=== PATIENT | female | born 1975 | race Caucasian/White ===

== ENCOUNTER 2021-12-04 08:46 | Outpatient (CLI) | payer BC, SELFPAY ==
[2021-12-04 19:28] LABS: Hematocrit 39.2 % (37.0-47.0); Hemoglobin 12.9 g/dL (12.0-15.0); Mean Corpuscular HGB Conc 32.9 g/dl (32-36); Mean Corpuscular Hemoglobin 29.4 pg (26-34); Mean Corpuscular Volume 89.3 fl (80-100); Platelet Count Result 304 k/mm3 (150-375); Red Blood Count 4.39 M/mm3 (4.2-5.4); Red Cell Distribution Width 13.6 % (11.5-14.5); White Blood Count 6.3 K/mm3 (4.5-10.0)
[2021-12-04 19:51] LABS: T4 Thyroxine 8.47 ug/dL (5.53-11.0)
[2021-12-04 20:00] LABS: Vitamin D 25 Hydroxy 40.8 ng/mL
[2021-12-04 20:04] LABS: Total Triiodothyronine (T3) 1.29 NG/ML (0.97-1.69)
[2021-12-07 11:16] LABS: FSH 7.3 mIU/mL (***); Progesterone 8.2 ng/mL (***)
[2021-12-08 10:22] LABS: Testosterone Total 9 ng/dL (2-45)
== END 2021-12-04 08:47 | disposition home or self-care (01) ==
PROVIDERS: Visit Provider Obstetrics & Gynecology
DX: N95.1 Menopausal and female climacteric states (principal)
CPT/HCPCS: 36415; 82306; 82672; 83001; 84144; 84403; 84436; 84443; 84480; 85027

== ENCOUNTER 2022-06-07 09:17 | Outpatient (CLI) | payer BC, OTHER, SELFPAY ==
--- NOTE | ~2022-06-07 | MM_ITS ---
EXAMINATION: MM screening jasmeet BI w félix HISTORY: Screening mammogram TECHNIQUE: Craniocaudal and mediolateral oblique 3-D tomosynthesis images were obtained and synthetic 2-D images were generated. CAD analysis was submitted and interpreted. COMPARISON: No prior mammogram is available for comparison at this institution. BREAST PARENCHYMAL COMPOSITION: There are scattered areas of fibroglandular density. FINDINGS: There is no evidence of suspicious mass, calcification, or architectural distortion to sugg est malignancy in either breast. There has been no suspicious interval change. IMPRESSION: 1. No mammographic evidence of malignancy. 2. Recommend routine screening mammography in one year. BI-RADS Category 1: Negative Reviewed, dictated and finalized at location A. HARDENER
== END 2022-06-07 09:18 | disposition home or self-care (01) ==
LOC: ANHIMG 09:19
PROVIDERS: PCP Family Medicine; Visit Provider Obstetrics & Gynecology
DX: Z12.31 Encounter for screening mammogram for malignant neoplasm of breast (principal)
CPT/HCPCS: 77063; 77067

== ENCOUNTER 2023-03-20 09:05 | Outpatient (CLI) | payer OTHER, SELFPAY ==
[2023-03-26 22:48] LABS: Estradiol, Ultrasensitive 178 pg/mL
== END 2023-03-20 09:06 | disposition home or self-care (01) ==
LOC: ANHLAB 09:07
PROVIDERS: PCP Family Medicine; Visit Provider Obstetrics & Gynecology
DX: N95.1 Menopausal and female climacteric states (principal)
CPT/HCPCS: 36415; 82670; 83001

== ENCOUNTER 2023-08-14 16:05 | Emergency (ER) | payer OTHER, SELFPAY ==
--- NOTE | 2023-08-14 16:12 | ED.GENADULT ---
HPI - General Adult General Chief complaint: Upper Respiratory Infection Stated complaint: Sore Throat Source: patient, RN notes reviewed and old records reviewed Mode of arrival: ambulatory Limitations: no limitations History of Present Illness HPI narrative: 40-year-old female presents to [facility] with complaint of with complaint of sinus congestion, sinus pressure, sinus pain, sore throat, bilateral ear pressure that started 2 weeks ago. Patient taking [id number] medications with no relief patient states is now having green nasal discharge. MD complaint: congestion Onset (ago): week(s) (2) Related Data Home Medications Medication Instructions Recorded Confirmed amlodipine 5 mg tablet 5 mg PO DAILY 12/02/21 03/20/23 chlorthalidone 25 mg tablet 25 mg PO DAILY 12/02/21 03/20/23 fluoxetine 40 mg capsule 40 mg PO DAILY 12/02/21 03/20/23 bupropion HCl 150 mg 24 hr tablet, 300 mg PO QAM 12/29/22 03/20/23 extended release iron 150 mg-C 60 mg-B12 25 1 cap PO DAILY 03/20/23 03/20/23 mcg-folic acid 1 lz-dwglmng-gq.acid capsule lisdexamfetamine 30 mg capsule 30 mg PO DAILY 03/20/23 03/20/23 (Vyvanse) alprazolam 0.25 mg tablet mg 08/14/23 Allergies Allergy/AdvReac Type Severity Reaction Status Date / Time No Known Allergies Allergy Verified 03/20/23 08:35 Review of Systems Constitutional: Constitutional: Reports no additional constitutional complaints, Denies body ache(s), Denies chills, Denies fatigue, Denies fever(s) and Denies headache(s) Eyes: Eyes: Reports no additional eye complaints and Denies blurry vision ENT: Reports system reviewed and no additional complaints, except as documented, Denies vertigo, Denies dizziness, Denies ear discharge, Reports otalgia, Denies facial pain, Denies headache(s), Reports nasal congestion, Reports nasal discharge, Reports sinus pain, Reports sinus pressure and Reports sore throat Cardiovascular: Cardiovascular: Reports no additional cardiovascular complaints, Denies chest pain, Denies chest pain at rest, Denies rapid heart rate and Denies dyspnea Respiratory: Respiratory: Reports no additional respiratory complaints, Denies chest congestion, Denies cough, Denies pain on inspiration, Denies pain with cough and Denies dyspnea Gastrointestinal: Gastrointestinal: Denies abdominal pain, Denies diarrhea, Denies nausea and Denies vomiting Integumentary/Breasts: Skin/Breast: Denies rash Neurologic: Reports system reviewed and no additional complaints, except as documented, Denies vertigo, Denies dizziness and Denies headache(s) Endocrine: Endocrine: Denies fatigue PMFSH Past Medical History Medical History Depression with anxiety Hypertension Miscarriage Surgical History Surgical History Hx of tubal ligation S/P dilation and curettage [place] teeth removed Family History Family History Other Alcoholism Asthma Depression Hypertension Lung cancer Lupus Social History Social History Smoking status: Never smoker Alcohol intake: never Substance use: never Substance use type: does not use Concerned About Future Housing: Decline to Answer Difficulty Paying Gas/Electric Bills: Decline to Answer Difficulty Paying for Meds: Decline to Answer Currently Unemployed: Decline to Answer Difficulty w/ Childcare or Family Care: Decline to Answer Comments At the time of my signature, I reviewed and agree with the nursing past medical, surgical, social, and family history. There is no relevant family history pertinent to the patient complaint. Exam Const: General: cooperative, healthy appearing, no acute distress and well nourished Nutritional Appearance: well nourished Orientation/consciousness: patient oriented x3
[2023-08-14 16:16] VITALS: BP 138/84; PULSE 107; RESP 16; TEMP 35.9; O2SAT 100
== END 2023-08-14 16:23 | disposition home or self-care (01) ==
PROVIDERS: Emergency Provider Registered Nurse; PCP Family Medicine
DX: J01.90 Acute sinusitis, unspecified (principal); I10 Essential (primary) hypertension; F41.9 Anxiety disorder, unspecified; F32.A Depression, unspecified
CPT/HCPCS: 99213; G0463

== ENCOUNTER 2023-11-06 07:16 | Outpatient (CLI) | payer OTHER, SELFPAY ==
--- NOTE | ~2023-11-06 | MM_ITS ---
EXAMINATION: MM screening jasmeet BI w félix HISTORY: Screening TECHNIQUE: Craniocaudal and mediolateral oblique 3-D tomosynthesis images were obtained and synthetic 2-D images were generated. CAD analysis was submitted and interpreted. COMPARISON: 06/07/2022 BREAST PARENCHYMAL COMPOSITION: Not dense: There are scattered areas of fibroglandular density. FINDINGS: There is no evidence of suspicious mass, calcification, or architectural distortion to sugg est malignancy in either breast. There has been no suspicious interval change. IMPRESSION: 1. No mammographic evidence of malignancy. 2. Recommend routine screening mammography in one year. BI-RADS Category 1: Negative Reviewed, dictated and finalized at location B.
== END 2023-11-06 07:17 | disposition home or self-care (01) ==
LOC: ANHIMG 07:19
PROVIDERS: PCP Nurse Practitioner Family; Visit Provider Obstetrics & Gynecology
DX: Z12.31 Encounter for screening mammogram for malignant neoplasm of breast (principal)
CPT/HCPCS: 77063; 77067

== ENCOUNTER 2024-07-03 12:08 | Emergency (ER) | payer OTHER, SELFPAY ==
--- NOTE | 2024-07-03 12:23 | ED_ITS ---
HPI - URI/Sore Throat General Stated Complaint: nose/sinus pressure/headache History of Present Illness HPI Narrative: Patient presents for evaluation of nasal congestion runny nose. No fever no body aches. Patient states her child tested positive for influenza A 5 days ago and was given Tamiflu prophylactic due to her exposure. Patient states she has no fever no body aches no cough just nasal congestion. Related Data Home Medications ?Medication ?Instructions ?Recorded ?Confirmed ?Last Taken ?Type amlodipine 5 mg tablet 5 mg PO DAILY 12/02/21 04/18/24 Unknown History fluoxetine 40 mg capsule 40 mg PO DAILY 12/02/21 04/18/24 Unknown History bupropion HCl 150 mg 24 hr tablet, 300 mg PO QAM 12/29/22 04/18/24 Unknown History extended release iron 150 mg-C 60 mg-B12 25 1 cap PO DAILY 03/20/23 04/18/24 Unknown History mcg-folic acid 1 ss-zewjhaq-uu.acid capsule alprazolam 0.25 mg tablet 0.25 mg PO DAILY PRN Anxiety 08/14/23 04/18/24 Unknown History lisdexamfetamine 30 mg capsule 60 mg PO DAILY 11/17/23 04/18/24 Unknown History (Vyvanse) Allergies Allergy/AdvReac Type Severity Reaction Status Date / Time No Known Allergies Allergy Verified 04/18/24 08:45 Review of Systems Review of Systems: CONSTITUTIONAL: Denies chills, or sweats. Reports fever and generalized body aches EYES: Denies visual changes, redness, or discharge. ENT: Denies otalgia. Reports nasal congestion runny nose and sore throat CARDIOVASCULAR: Denies chest pain, palpitations, or edema. RESPIRATORY: Denies dyspnea. Reports occasional cough GASTROINTESTINAL: Denies abdominal pain, nausea, vomiting, or diarrhea. GENITOURINARY: Denies dysuria or hematuria. SKIN: Denies rash or itching. MUSCULOSKELETAL: Denies back pain, joint pain, or myalgia. Reports generalized body aches NEUROLOGIC: Denies headache, numbness, or weakness. PSYCHIATRIC: Denies anxiety or depression. [facility] Past Medical History Medical History (Updated 07/03/24 @ 12:34 by SHERRIE Stack) Skin cancer (melanoma) Depression with anxiety Miscarriage Hypertension Surgical History Surgical History Hx of tubal ligation S/P dilation and curettage [place] teeth removed Family History Family History Other Alcoholism Asthma Depression Hypertension Lung cancer Lupus Social History Social History Smoking status: Never smoker Alcohol intake: never Substance use: never Substance use type: does not use Concerned About Future Housing: Decline to Answer Difficulty Paying Gas/Electric Bills: Decline to Answer Difficulty Paying for Meds: Decline to Answer Currently Unemployed: Decline to Answer Difficulty w/ Childcare or Family Care: Decline to Answer Living arrangements: with family Spiritual care concerns: No Exam Narrative: The patient is a well-developed, well-nourished in no acute distress. SKIN: Skin is warm and dry without erythema, swelling or exudate. There is good turgor. No tenting. HEAD: Atraumatic. Normocephalic. No temporal or scalp tenderness. EYES: Moist and bright. Sclera and conjunctivae normal. No discharge. PERRLA. Extraocular motions intact. Gross visual acuity intact. EARS: Pinna is normal shape and contour. Clear external auditory canals. TM pearly arriaza with good cone of light, no erythema or suppuration. Bilateral cerumen noted no gross hearing deficit. NOSE: pink, moist mucosa with good air movement. Clear rhinorrhea without nasal flaring. Septum midline. Mouth: moist mucous membranes. THROAT; mild erythema noted to posterior oropharynx with moderate postnasal drainage. Without exudate or ulceration.. Uvula midline. Normal movement of soft palate. NECK: Supple and nontender with full range of motion without discomfort. No meningeal signs. LUNGS: Equal and bilateral breath sounds without wheezes, rales or rhonchi. CHEST: The chest wall is without retractions or use of accessory muscles. HEART: Has a regular rate and rhythm without murmur, gallops, click or rub. ABDOMEN: Soft, nontender with positive active bowel sounds. No rebound tenderness. EXTREMITIES: Without cyanosis, clubbing or edema. Equal 2+ distal pulses and 2 second capillary refill noted. NEUROLOGIC: alert, active, . The patient moves all extremities with normal muscle strength. Normal muscle tone is noted. Normal coordination is noted. NO focal neurological findings noted. Course Course Level of Care: Express Care Visit Discharge Plan Discharge Clinical Impression: Upper respiratory infection Patient Disposition: Home, Self-Care Condition: Stable Instructions: Antibiotic Form Additional Instructions: *Throw away your current toothbrush and begin using a new toothbrush in 48 hours in order to prevent re-infection. If anyone else's toothbrush is stored near yours, they should also throw away their current toothbrush and begin using a new one. *Sanitize all reusable water bottles. *Do not share items with others. *Wash your hands often. Supportive care/Soothing measures/Pain relief: *Avoid cigarette smoke (including secondhand smoke) *Avoid acidic foods and beverages *Eat a soft diet for the next 3-4 days *Salt water gargles may alleviate some of the throat discomfort. Most recipes call for ? to ? teaspoon of salt per 8 ounces (approximately 240 mL) of warm water. *You can take tylenol or ibuprofen per the package instructions for pain/fever. *Sipping cold or warm beverages (eg, tea with honey or lemon) *Eat cold or frozen desserts (eg, ice cream, popsicles) *Sucking on ice *Sucking on hard candy Viruses are everywhere and can spread like wildfire. Sx can last up to 3-4 weeks. Treatment is aimed toward your specific symptoms. You must treat your symptoms in order to feel better while the virus runs it's course. Increase fluids especially water. Do not share items with others. You can take Tylenol or ibuprofen per the package instructions for pain/fever. Wash your hands as often as possible. Purchase and begin using an over the counter antihistamine/decongestant combo such as Zyrtec D, Larisa D, Claritin D as well as Flonase nasal spray per the package instructions. Salt water gargles may alleviate some of your throat discomfort. Go to the ER if your symptoms become worse of if ANY new symptoms develop Patient Language: [place] Prescriptions: No Action alprazolam 0.25 mg tablet 0.25 mg PO DAILY PRN (Reason: Anxiety) Slynd 4 mg (28) tablet 1 tablet PO DAILY Qty: 84 4RF amlodipine 5 mg tablet 5 mg PO DAILY fluoxetine 40 mg capsule 40 mg PO DAILY bupropion HCl 150 mg tablet extended release 24 hr 300 mg PO QAM iron aspgly,[id number] 150-60-25-1 rp-ss-kqg-mg capsule 1 cap PO DAILY lisdexamfetamine [Vyvanse] 30 mg capsule 60 mg PO DAILY Follow-up/Referrals: Prakash,Tiffanie Guerra, SKEIN STRAIGHTENER [Primary Care Provider] -
[2024-07-03 12:31] VITALS: BP 134/81; PULSE 92; RESP 18; TEMP 36.4; O2SAT 100
--- OUTSIDE RECORDS SUMMARY | 2024-07-08 03:45 | XMS_ITS ---
Author Organization [facility] [employer] [facility] Address [facility] [address] [address] Care Team Providers Care Biological Science Aide Name Role Phone Prakash SUTHERLAND, Tiffanie Primary Care Provider Unavailab Cristela Goodman Unavailable [phone] REASON FOR VISIT Cancel Appointment Request Social History Sex Assigned At : Social History Observation Description Sex Assigned At Female Encounters Encounter Location Date Provider Diagnosis [facility] [employer] [place] [id number] [facility] [address] [address] 05/27/2024 Cristela Garland Plan Of Treatment Next Appt Details Provider Name:Flori Adamson, 07/26/2024 08:00:00 AM, [address] [facility] [address], [address], [address], Provider Name:Cristela Garland, 08/09/2024 08:00:00 AM, [address] [place] [address], [address], Progress Notes * MOISE CONRADDOB:[birth year] (49 yo F)Acc No.[id number]:05/27/2024 Patient:?MOISE CONRAD :1975???Age:49 Y???Sex:Female Address:[address], [place], [address] * true * Date:? 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
--- OUTSIDE RECORDS SUMMARY | 2024-07-08 03:45 | XMS_ITS ---
Author Organization [facility] [employer] [facility] Address [facility] [address] [address] Care Team Providers Care Manager [place] Name Role Phone Prakash SUTHERLAND, Tiffanie Primary Care Provider Unavailab Cristela Goodman Unavailable [phone] REASON FOR VISIT Cancel Appointment Request Social History Sex Assigned At : Social History Observation Description Sex Assigned At Female Encounters Encounter Location Date Provider Diagnosis [facility] [employer] [place] [id number] [facility] [address] [address] 05/27/2024 Cristela Garland Plan Of Treatment Next Appt Details Provider Name:Flori Adamson, 07/26/2024 08:00:00 AM, [address] [facility], [address], [address], Provider Name:Cristela Garland, 08/09/2024 08:00:00 AM, [address] [place] [address], [phone], Progress Notes * MOISE CONRADDOB:[birth year] (49 yo F)Acc No.[id number]:05/27/2024 Patient:?MOISE CONRAD :1975???Age:49 Y???Sex:Female Address:[address], [place], [address] * true * Date:? Generated for Printi ng/Faxing/eTransmitting on:?07/08/2024 03:45 AM ROLL CARRIER
--- OUTSIDE RECORDS SUMMARY | 2024-07-08 03:45 | XMS_ITS ---
Author Organization [facility] [employer] [facility] Address [address] [facility] [address] [address] Care Team Providers Care Email Specialist Name Role Phone Prakash SUTHERLAND, Tiffanie Primary Care Provider UnavailCristela Mercedes Unavailable [phone] REASON FOR VISIT 50 mg Vyvanse [facility] Medications Medication SIG (Take, Route, Frequency, Duration) Notes Start Date End Date Status Lisdexamfetamine Dimesylate 50 MG 1 capsule in the morning Orally Once a day for 30 days 06/23/2024 Active Social History Sex Assigned At : Social History Observation Description Sex Assigned At Female Encounters Encounter Location Date Provider Diagnosis [facility] [employer] [place] [address] [facility] [address] [address] 06/22/2024 Cristela Garland Plan Of Treatment Medication Medication Name Sig Start Date Stop Date Notes Lisdexamfetamine Dimesylate 50 MG 1 caps ule in the morning Orally Once a day for 30 days 06/23/2024 Next Appt Details Provider Name:Flori Adamson, 07/26/2024 08:00:00 AM, [address], [address], [address], Provider Name:Cristela Garland, 08/09/2024 08:00:00 AM, [address], [facility] [address], [address], Progress Notes * MARCELINO CONRAD:[birth year] (49 yo F)Acc No.[id number]:06/22/2024 Patient:?MOISE CONRAD :1975???Age:49 Y???Sex:Female Address:[facility] [address], [place], [address] * Refills? Refill Lisdexamfetamine Dimesylate Capsule, 50 MG, Orally, 30, 1 capsule in the morning, Once a day, 30 days, Refills=0 * true * Date:? 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
--- OUTSIDE RECORDS SUMMARY | 2024-07-08 03:46 | XMS_ITS | Encounter Summary ---
Author Organization [facility] Healthcare Address [address] [place] [address] Care Team Providers Care Civil Litigation Attorney Name Role Phone Glenn Lambert MD Unavailable [phone] Tiffanie Randall NP Primary Care Provider [phone] Encounter Details Date Type Department Care Team (Latest Contact Info) Description 11/18/2023 8:11 AM CDT - 11/18/2023 11:59 PM CDT Hospital Encounter [address] [address] Melena; Abdominal pain Discharge Disposition: Discharge to home or self care Social History Tobacco Use Types Packs/Day Years Used Date Smoking Tobacco: Never Smokeless Tobacco: Never AUDIT-C Answer Date Recorded Frequency of Alcohol Consumption Not on file 04/11/2022 Q2: How many drinks containi ng alcohol do you have on a typical day when you are drinking? 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 Gender Identity Not on file Sexual Orientation Not on file documented as of this encounter Medications at Time of Discharge ALPRAZolam (XANAX) 0.25 mg tablet 03/11/2022 FLUoxetine (PROzac) 60 mg tablet 03/11/2022 Slynd tablet tablet 03/26/2022 Vyvanse 60 mg capsule amLODIPine (NORVASC) 5 mg tabletIndications: Primary hypertension Take 1 tablet (5 mg total) by mouth nightly 90 tablet 1 10/19/2023 4 documented as of this encounter Discharge Disposition Disposition Code Departure Means Destination Discharge to home or self care documented in this encounter Plan of Treatment Not on file documented as of this encounter Procedures Procedure Name Priority Date/Time Associated Diagnosis Comments DIFFERENTIAL AUTO Routine 11/18/2023 8:1 1 AM CDT Melena Abdominal pain CBC WITH AUTO DIFFERENTIAL Routine 11/18/2023 8:11 AM CDT Melena Abdominal pain GLIADIN ANTIBODY, IGA Routine 11/18/2023 8:11 AM CDT TISSUE TRANSGLUTAMINASE, IGA Routine 11/18/2023 8:11 AM CDT TSH Routine 11/18/2023 8:11 AM CDT Melena Abdominal pain documented in this encounter Results * Differential, auto (11/18/2023 8:11 AM CDT) Neutrophil abs 5.7 1.5 - 6.5 K/cumm Imm gran abs 0.0 0.0 - 0.1 K/cumm [facility] CH Lymphocyte abs 1.3 0.8 - 3.3 K/cumm [facility] CH Monocyte abs 0.4 0.2 - 0.8 K/cumm [facility] CH Eosinophil abs 0.2 0.0 - 0.5 K/cumm [facility] Basophil abs 0.1 0.0 - 0.1 K/cumm [facility] CH Neutrophil pct 74.2 % CERNER Comment: Interpretive Data Percent cell count reference ranges are not reported, since discordance with absolute values may lead to misinterpretation of CBC data. Current Interpretive Data was last revised on 2017. Imm gran pct 0.4 % CERNER Comment: Interpretive Data Percent cell count reference ranges are not reported, since discordance with absolute values may lead to misinterpretation of CBC data. Current Interpretive Data was last revised on 2017. Lymphocyte pct 17.0 % FERN Comment: Interpretive Data Percent cell count reference ranges are not reported, since discordance with absolute values may lead to misinterpretation of CBC data. Current Interpretive Data was last revised on 2017. Monocyte pct 5.6 % FERN Comment: Interpretive Data Percent cell count reference ranges are not reported, since discordance with absolute values may lead to misinterpretation of CBC data. Current Interpretive Data was last revised on 2017. Eosinophil pct 2.1 % FERN Comment: Interpretive Data Percent cell count reference ranges are not reported, since discordance with absolute values may lead to misinterpretation of CBC data. Current Interpretive Data was last revised on 2017. Basophil pct 0.7 % FERN Comment: Interpretive Data Percent cell count reference ranges are not reported, since discordance with absolute values may lead to misinterpretation of CBC data. Current Interpretive Data was last revised on 2017. Blood 11/18/2023 8:1 1 AM CDT 11/18/2023 1:54 PM CDT Julito Ochoa SOLAR ELECTRIC PRACTITIONER LAB BLOOD ORDERABLES Fin al Result [facility] [address] [facility] Department [place] [address] * Gliadin antibody, IgA (11/18/2023 8:11 AM CDT) Anti-gliadin, IgA <0.5 <=14.9 units/mL Comment: Interpretive data Negative: <15 units/mL Positive: > or equal to 15 units/mL Current interpretive data was last revised on 2016. Testing performed by: [facility], [address] [place]., [address] Blood 11/18/2023 8:11 AM CDT 11/18/2023 4:57 PM CDT Julito Ochoa SOLAR ELECTRIC PRACTITIONER LAB BLOOD ORDERABLES Fin al Result Performing Organization Address [facility] Co de Phone Number [facility] [address] Department of Laboratories [place], [place] [id number] * Tissue transglutaminase IgA (TGG-IgA Ab) (11/18/2023 8:11 AM CDT) TTG ab, IgA <0.5 <=14.9 units/mL Comment: Interpretive data Negative: <15 units/mL Positive: > or equal to 15 units/mL Current interpretive data was last revised on 2016. Testing performed by: [facility], [address] [place] [address]., [id number] Blood 11/18/2023 8:11 AM CDT 11/18/2023 4:57 PM CDT Julito Ochoa SOLAR ELECTRIC PRACTITIONER LAB BLOOD ORDERABLES Fin al Result Performing Organization Address [facility] de Phone Number [facility] [place] [address] Department [place] [place] [address] * (ABNORMAL) CBC with auto differential (11/18/2023 8:11 AM CDT) Pathologist [facility] WBC 7.6 3.8 - 9.9 K/cumm Hgb 13.0 11.9 - 15.5 g/dL [facility] Hct 40.2 35.6 - 45.5 % [facility] Plt 387 150 - 400 K/cumm [facility] MPV 8.9(L) 9.1 - 12.3 fL [facility] RBC 4.49 3.90 - 5.20 M/cumm [facility] MCV 89.5 81.3 - 96.4 fL [facility] MCH 29.0 27.1 - 33.3 pg [facility] MCHC 32.3 32.3 - 35.7 g/dL [facility] RDW CV 12.9 11.1 - 14.9 % [facility] RDW SD 42.2 35.7 - 48.1 fL [facility] NRBC abs 0.00 0.00 - 0.01 K/cumm [facility] Blood 11/18/2023 8:11 AM CDT 11/18/2023 1:54 PM CDT Narrative FERN - 11/18/2023 2:38 PM CDT Fax results to [phone] julito ochoa aprn Julito Ochoa SOLAR ELECTRIC PRACTITIONER LAB BLOOD ORDERABLES Fin al Result Performing Organization Address [facility] Co de Phone Number [facility] [place] [phone] [address] Department [place] [address] * TSH (11/18/2023 8:11 AM CDT) Thyroid Stimulating Hormone 0.93 0.30 - 4.20 mcIUnit/mL Blood (Blood, Venous) 11/18/2023 8:11 AM CDT 11/18/2023 1:54 PM CDT Narrative FERN - 11/18/2023 2:54 PM CDT Fax results to [phone] julito ochoa aprn Julito Ochoa SOLAR ELECTRIC PRACTITIONER LAB BLOOD ORDERABLES Fin al Result Performing Organization Address [facility] Co de Phone Number [facility] [place] [address] Department [place] [address] documented in this encounter Visit Diagnoses Diagnosis Melena Blood in stool Abdominal pain Abdominal pain, unspecified site documented in this encounter Care Teams Civil Litigation Attorney Relationship Specialty Start Date End Date Tiffanie Randall NP [address] [address] PCP - General Family Medicine 10/19/23 Glenn Lambert MD [address] [facility] [address] [place] [address] Referring Physician Obstetrics and Gynecology 11/18/21 documented as of this encounter
--- OUTSIDE RECORDS SUMMARY | 2024-07-08 03:46 | XMS_ITS | Clinical Summary ---
Author Organization [facility] Address [address] [place] [address] Phone Care Team Providers Care Watch Adjuster Name Role Phone Lona Randhawa MD Primary Care Provider [phone] Allergies No known active allergies Medications ketorolac (TORADOL) 10 MG Tablet Take 1 Tablet by mouth every 6 hours as needed for Moderate or more severe pain. 20 Tablet 09/04/2023 Active metoclopramide (REGLAN) 10 MG Tablet Take 1 Tablet by mouth 4 times daily as needed for Nausea - 1st line. 10 Tablet 09/04/2023 Active Social History Tobacco Use Types Packs/Day Years Used Date Smoking Tobacco: Never Smokeless Tobacco: Never Tobacco Cessation:Counseling Given: Not Answered Comments No Sex and Gender Information Value Date Recorded Sex Assigned at Not on file Legal Sex Female 2:01 PM LICENSED APPRAISER Gender Identity Not on file Sexual Orientation Not on file Last Filed Vital Signs Vital Sign Reading Time Taken Comments Blood Pressure 116/70 09/04/2023 4:11 PM LICENSED APPRAISER Pulse 84 09/04/2023 4:11 PM LICENSED APPRAISER Temperature 36.9 ??C (98.5 ??F) 09/04/2023 2:11 PM CS T Respiratory Rate 18 09/04/2023 4:11 PM LICENSED APPRAISER Oxygen Saturation 99% 09/04/2023 4:11 PM LICENSED APPRAISER Inhaled Oxygen Concentration - - Weight 98 kg (216 lb) 09/04/2023 2:11 PM LICENSED APPRAISER Height 165.1 cm (5' 5 ) 09/04/2023 2:11 PM LICENSED APPRAISER Body Mass Index 35.94 09/04/2023 2:11 PM LICENSED APPRAISER Plan of Treatment Health Maintenance Due Date Last Done Comments Hepatitis C Virus (HCV) Screening 1975 Hepatitis B Immunization (1 of 3 - 19+ 3-dose series) 1994 Pap Smear 1996 Cervical Cancer Screening (CCS) 2005 HPV/Cotest 2005 Discussion re Starting/Frequ ency of Mammograms 2015 Colonoscopy 2020 Colorectal Cancer Screening 2020 Influenza Immunization (#1) 2024 SARS-COV-2 Immunization ( - 2023- season) 2024 Respiratory Syncytial Virus (RSV) Immunization (Adult) (1 - 1-dose 75+ series) 2050 DTaP/Tdap/Td Immunization Discontinued 03/05/2021 TdaP Immunization Completed 03/05/2021 Meningococcal Immunization (ACWY) Aged Out No longer eligible based on patient's age to complete this topic Pneumococcal Immunization Combined Aged Out No longer eligible b ased on patient's age to complete this topic Rotavirus Immunization Aged Out No lo nger eligible based on patient's age to complete this topic Insurance [facility] Care Teams Watch Adjuster Relationship Specialty Start Date End Date Lona Randhawa MD [address] [place] [address] [place] [address] PCP - General Stringed Instrument Assembler 09/04/23
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
--- OUTSIDE RECORDS SUMMARY | 2024-07-08 03:46 | XMS_ITS | Encounter Summary ---
Author Organization [facility] Healthcare Address [address] [place] [address] Care Team Providers Care Eyeglass Lens Cutter Name Role Phone Glenn Lambert MD Unavailable [phone] Tiffanie Randall NP Primary Care Provider [phone] Encounter Details Date Type Department Care Team (Late st Contact Info) Description 06/29/2024 Patient Self-Triage [facility]/ Physicians [address] [place] [address] Myclisat, [facility] Provider [address] [place], [place] [id number] Social History Tobacco Use Types Packs/Day Years [...] points, staff should administer the PHQ-9) 0 01/20/2024 Personal Safety Answer Date Recorded Getting School Help Needed Not on file 07/20 Comments Unknown Sex and Gender Information Value Date Recorded Sex Assigned at Not on file Legal Sex Female 2:08 PM [employer] Gender Identity Not on file Sexual Orientation Not on file documented as of this encounter Plan of Treatment Not on file documented as of this encounter Visit Diagnoses Not on filedocumented in this encounter Care Teams Eyeglass Lens Cutter Relationship Specialty Start Date End Date Tiffanie Randall NP [address] [place] [address] PCP - General Family Medicine 10/19/23 Glenn Lambert MD [address] [facility] [address] [address] Referring Physician Obstetrics and Gynecology 11/18/21 documented as of this encounter
--- OUTSIDE RECORDS SUMMARY | 2024-07-08 03:46 | XMS_ITS | Data Portability ---
Author Organization SHELIA - Dustin Prasad , [address] [place] [address] Care Team Providers Care Deburr Technician Name Role Phone ANITRA PIRES Primary Care Provider Assessment Encounter Date Assessment Date Assessment LastModified by Organization Details LastModified Time 05/29/2020 05/29/2020 Annual exam. Pap done today as patient does not recall where her last one was done. Mammogram up to date. Referred for colorectal cancer screening. Discussed menopausal symptoms, she does not feel the need to treat her vasomotor symptoms at this time but is interested in vaginal estrogen therapy. [email or web address] Not available 05/29/2020 15:23:38 Plan of Treatment Reminders Order Date Submit Date Provider Last Modified By Organization Details Last Modified Time Details Appointments None recorded. Lab pap, LB + HR HPV 2019 LISBETH Mackey (Lab), [address] [place] [address] , [place], [address], 0 23:11:16 Referral colonoscop y referral 2019 CIARRA Wilkerson MD, [address], [address], [address], 0 16:34:13 Procedures None recorded. Surgeries None recorded. Imaging None recorded. Medication Orders estradiol 0.01% (0.1 mg/gram) vaginal cream 2019 [id number], [address], [place], [place], [id number], 0 15:24:32 Patient TargetsNo targets recorded. Patient Instructions Encounter Date Encounter Id Patient Instructions Last Modified By Organization Details Last Modified Time 05/29/2020 [id number] atrophic vaginitis: care instructions nancy Not available 05/29/2020 15:24:22 We discussed the importance of annual exams to maintain her health and keep her up to date on preventive screenings, including cervical cancer screening, breast cancer screening, and colorectal cancer screening. We also discussed the importance of maintaining a healthy diet, exercising regularly, and taking a multivitamin with folic acid. [email or web address] Not available 05/29/2020 15:14:41 Reason for Referral Colonoscopy Referral for Spe cialized medical examination Referring Physician: Arabella Campuzano, Gynecology, Encounter Date: 05/29/2020 Results Created Date Observation Date Name Description Value Unit Range Abnormal Flag Note LastModifiedBy Organization Detail LastModifiedTime 05/29/2005/30/2020 pap, LB + HR HPV TP highrisk HPV,16/18 Normal normal ----- ----- ----- ----- -SPEC IMEN PART- ----- ----- ----- --- A. Cervi vangie, Endoc erdacia al, ThinP rep Pap (Imag er) ----- ----- ----- ----- -CYTO LOGY HX--- ----- ----- ----- --- Date of Last Menst rual Perio d: n Other Infor matio n: Routi ne Exam ----- ----- ----- ----- -GLADIS L DIAGN OSIS- ----- ----- ----- - INTER PRETA TION: Negat les for Intra epith elial Lesbrown n or Cesar padgett . SPECI MEN ADEQU ACY:S atisf actor y for evalu ation . Endoc erdacia al/tr ansfo rmati on zone compo nent is absen t/ins [facility] ient. Not Available [facility] ([facility]) [address], [place], [address], 06/01/2020 23:11:16 05/29/202020 pap, LB + HR HPV HPV Normal normal HR-HP V: Negat les Test perfo rmed by the FDA-a pprov ed Holog ic (Gen- Probe ) APTIM A HPV test, which detec ts HPV genot ypes: 16, 18, 31, 33, 35, 39, 45, 51, 52, 56, 58, 59, 66, and 68. Not Available [facility] ([facility]) [address], [place], [address], 06/01/2020 23:11:16 Result Notes None recorded. Problems No Known Problems Procedures Surgical History Date Name Laterality Status Provider Name and Address Organization Details Recorded Time 3 Dilation and Curettage completed Shannon Blackwell MD [facility] 05/29/2020 14:55:01 Imaging Results None recorded. Procedure Notes None recorded. Medical Equipment None Reported. Allergies No known drug allergies Medications Name Sig Start Date Stop Date Status Note LastModified by Organization Details LastModified Time fluoxetine 40 mg capsule TAKE 1 CAPSULE BY MOUTH EVERY DAY active Not Available Not Available No t Available meloxicam 15 mg tablet TAKE 1 TABLET BY MOUTH EVERY DAY 05/23 completed Not Available Not Available Not Available phentermine 37.5 mg tablet TAKE 1 TABLET (37.5 MG TOTAL) BY MOUTH EVERY MORNING BEFORE BREAKFAST FOR 30 DAYS. 05/23 completed Not Available Not Available Not Available alprazolam 0.5 mg tablet TAKE 1 TABLET (0.5 MG TOTAL) BY MOUTH AT BEDTIME NEEDED. FOR SLEEP 05/29 completed Not Available Not Available Not Available methocarbam ol 750 mg tablet TAKE 1 TABLET BY MOUTH EVERY 8 HOURS NEEDED FOR MUSCLE SPASM 05/23 completed Not Available Not Available Not Available pantoprazol e 40 mg tablet,aurora yed release TAKE 1 TABLET BY MOUTH TWICE A DAY 1 HOUR BEFORE MEALS FOR 90 DAYS active Not Available Not Available No t Available hydrochloro thiazide 25 mg tablet TAKE 1 TABLET (25 MG TOTAL) BY MOUTH DAILY BEFORE BREAKFAST . active Not Available Not Available No t Available estradiol 0.01% (0.1 mg/gram) vaginal cream Insert 1 g twice a week by vaginal route for 30 days. 2019 active Not Available Not Available Not Avai lable methylpredn isolone 4 mg tablets in a dose pack TAKE 6 TABLETS ON DAY 1 DIRECTED ON PACKAGE AND DECREASE BY 1 TAB EACH DAY FOR A TOTAL OF 6 DAYS 05/23 completed Not Available Not Available Not Available albuterol sulfate HFA 90 mcg/actuati on aerosol inhaler INHALE 2 PUFFS BY MOUTH EVERY 4 HOURS NEEDED FOR COUGH/JOSE GUADALUPE RTNESS OF BREATH 05/29 completed Not Available Not Available Not Available fluoxetine 20 mg capsule TAKE 2 CAPSULES BY MOUTH EVERY DAY 05/23 completed Not Available Not Available Not Available naproxen 500 mg tablet TAKE 1 TABLET BY MOUTH TWICE A DAY NEEDED FOR PAIN,TAKE WITH FOOD 05/23 completed Not Available Not Available Not Available amoxicillin 875 mg-potassiu m clavulanate 125 mg tablet TAKE 1 TABLET BY MOUTH TWICE A DAY DIRECTED 05/23 completed Not Available Not Available Not Available rosuvastati n 5 mg tablet TAKE 1 TABLET BY MOUTH EVERYDAY AT BEDTIME active Not Available Not Available No t Available bupropion HCl XL 300 mg 24 hr tablet, extended release TAKE 1 TABLET (300 MG TOTAL) BY MOUTH DAILY BEFORE BREAKFAST . active Not Available Not Available No t Available Vitals Date Recorded Body height Body mass index (BMI) Body weight Systolic blood pressure Diastolic blood pressure Provider Name and Address Organization Details Last Updated DateTime 05/29/2020 167.64 cm 32.8 kg/m2 74694.97 g 126 mm[Hg] 84 mm[Hg] Shannon Blackwell MD 0 15:01:48 Social History Question Answer Notes LastModified by Organizat ion Details LastModified Time Tobacco Smoking Status Never Smoker SHELIA Zhu MD 05/29/2020 14:54:15 What Is Your Level Of Alcohol Consumption? None Information not available 05/29/2020 Is Blood Transfusion Acceptable In An Emergency? Yes Information not available 05/29/2020 Which Illicit Or Recreational Drugs Have You Used? Denies [email or web address] Information not available 05/29/2020 Do You Or Have You Ever Used E-cigarettes Or Vape? Never Used Electronic Cigarettes [email or web address] Information not available 05/29/2020 Marital Status [email or web address] Informatio n not available 05/29/2020 What Was The Date Of Your Most Recent Tobacco Screening? 05/29/2020 [email or web address] Information not available 05/29/2020 Are You Sexually Active? Yes [email or web address] Information not available 05/29/2020 Do You Or Have You Ever Used Smokeless Tobacco? Never Used Smokeless Tobacco [email or web address] Information not available 05/29/2020 Sex: Unknown Functional Status Question Answer Note LastModified by Organization D etails LastModified Time What is your exercise level? Moderate Information not available 05/29/2020 Mental Status None recorded. Family History Relationship Description Onset Age of this Age Resolved Age Notes LastModified by Organization Details LastModified Time Sister Anemia [email or web address] Not available 1 07/29/2019 15:01:59 Mother Lupus erythematosu s [email or web address] Not available 2019 14:57:48 Medical History Condition Response Anesthesia complications N High Blood Pressure Y Heart Conditions N Breast Cancer N Thyroid Problems N Kidney or Bladder Problems N Lung Disease N GI Problems Y Depression Y Defects or Inherited Disease N Polycystic ovarian syndrome N Cervical cancer N Breast Problem N Anemia N Pelvic inflammatory disease N Psychiatric Illness N Diabetes N Anxiety Disorder Y Ovarian Cancer N Pulmonary embolus N Arthritis N Headaches or Migraines Y Infertility Y Deep vein thrombosis N Cancer N Asthma N Endometriosis N Uterine fibroids N Uterine cancer N Clotting disorder N Hepatitis N Gynecological History Statement/Question Response Date of last Bone Density Date of LMP 05/01/2020 How many pads or tampons on your heavies t days 3 Date of last mammogram 03/20/2020 Duration of Flow (days) 5 Age at Menarche 13 Current Control Method None Date of last Pap smear 07/20/2018 History of sexually transmitted disease N Date of last colonoscopy Have you ever had an abnormal Pap N Frequency of Cycle (Q days) 28 Obstetrics History GPAL:G 1 P 0 0 1 0 Type Value Spontaneous 1 Total 1 Past Encounters Encounter ID Performer Location Encounter Start Date Encounter Closed Date Diagnosis/Indication Diagnosis SNOMED-CT Code Diagnosis ICD10 Code [id number] Arabella Campuzano [address] [facility] [place] [address] 05/29/2020 14:39:04 05/29/2020 15:27:08 Specialized medical examination 65797961 Z01.419 Atrophic vaginitis 74764 000 N95.2 Health Concerns Section Related Observation LastModified by Organization Detai ls LastModified Time None Recorded Concern Status LastModified by Organization Details LastModified Time None Recorded Advance Directives Directive None Recorded Payers Encounter Date Sequence Insurance Name Policy Number Policy Her Covered Member ID Her Member ID Guarantor Name 05/29/2020 1 [facility] [id number] Lcuas Jacobsen [id number] Laurie Jacobsen Notes Date Note Type Note Provider Name and Address Organization Details Recorded Time 05/29/2020 text/html 45 year old new patient here today for annual exam. Denies any gynecology teacher issues or concerns. Last pap in 2019 WNL, per patient. Mammogram in March 2020 WNL, per patient. Denies hx of abnormal paps Provider- Laurie is a 45 yo here today for annual exam. She reports her last pap was in 2019, she cannot recall where she had this done and would like to have this done today. Mammogram in March 2020 was normal. No issues or concerns at today's visit. Arabella hassan, SHELIA - Shannan Blackwell MD 05/29/2020 15:24:27 OBGyn Episode No OBEpisode recorded.
--- OUTSIDE RECORDS SUMMARY | 2024-07-08 03:46 | XMS_ITS | Data Portability ---
Author Organization [place] - [place] [facility], Main Office Address [address] [place] [address] Assessment No assessment recorded. Plan of Treatment Reminders Order Date Submit Date Provider Last Modified By Organization Details Last Modified Time Details Appointments None recorded. Lab None recorded. Referral None recorded. Procedures None recorded. Surgeries None recorded. Imaging None recorded. Medication Orders Zithromax Z-Yomi 250 mg tablet 2022 023 [facility][id number], [address], [place], [place], [id number], 3 12:57:11 Wegovy 0.5 mg/0.5 mL subcutaneou s pen injector 2022 023 [place] [id number], [address], [place], [place], [id number], 3 11:03:48 Patient TargetsNo targets recorded. Patient InstructionsNo instructions recorded. Reason for Referral None Reported. Results Created Date Observation Date Name Description Value Unit Range Abnormal Flag Note LastModifiedBy Organization Detail LastModifiedTime 05/16/20 elect rocar diogr am No observ ation record ed. [id number] [id number] [address], [place], [address], 09/18/2022 01:28:15 05/17/20 22 05/19/2022 elect rocar diogr am No observ ation record ed. [id number] Z_[id number] [address], [place], [address], 09/18/2022 01:28:15 06/09/20 22 06/07/2022 paxtoni dmitri/valentino torres tic resul t No observ ation record ed. [id number] [address], [place], [address], 09/18/2022 01:28:15 Result Notes None recorded. Problems Name Problem SNOMED Code Status Onset Date Resolution Date Notes Provider Name and Address Organization Details Recorded Time Hypercholeste rolemia 70634988 Active 2021 Not Available [facility] 3 18:12:47 Depressive disorder 14977935 Active 2021 Not Available [facility] 3 18:12:47 Hypertensive disorder 40912917 Active 2021 Not Available [facility] 3 18:12:47 Anxiety 26605525 Active 2021 Not Available [facility] 3 18:12:47 Essential hypertension 55728784 Active 2022 Not Available [facility] 3 18:12:47 Acute sinusitis 90528951 Active 2022 Not Available [facility] 3 18:12:47 Obesity 544199968 Active 2022 Not Available [facility] 3 18:12:47 Mixed anxiety and depressive disorder 223942509 Active 2022 Not Available [facility] 3 18:12:47 Problem Notes None recorded. Procedures Surgical History Date Name Laterality Status Provider Name and Address Organization Details Recorded Time Dilation and curettage completed Not Available [facility] 09/18/2022 01:25:17 Tubal Ligation completed Not Available [facility] 09/18/2022 01:25:17 completed Not Available [facility] 0 09/18/2022 01:25:17 Imaging Results Imaging Date Name Status LastModified by Organization Details LastModified Time 05/16/2022 electrocardiogram completed [id number]. [id number] [facility]hrgmc_gmg [address] , [address], [place], [address], 09/18/2022 01:28:15 05/19/2022 electrocardiogram completed [id number]. [id number] Z_hrgm_gmg [address], [place], [address], 09/18/2022 01:28:15 06/07/2022 imaging/diagnostic result completed [id number], [place], [address], 09/18/2022 01:28:15 Procedure Notes None recorded. Medical Equipment None Reported. Allergies No known drug allergies Medications Name Sig Start Date Stop Date Status Note LastModified by Organization Details LastModified Time glycopyrrol ate 1 mg tablet Take 1 tablet twice a day by oral route. active Not Available Not Available No t Available fluoxetine 40 mg capsule active Not Available Not Available Not Available venlafaxine ER 37.5 mg capsule,ext ended release 24 hr Take 1 capsule every day by oral route. 02/02 completed Not Available Not Available Not Available azithromyci n 250 mg tablet TAKE 2 TABLETS (500 MG) BY ORAL ROUTE ONCE DAILY FOR 1 DAY THEN 1 TABLET (250 MG) BY ORAL ROUTE ONCE DAILY FOR 4 DAYS active Not Available Not Available No t Available fluoxetine 10 mg tablet Take 1 tablet every day by oral route. 02/05 completed Not Available Not Available Not Available chlorthalid one 25 mg tablet Take 1 tablet every day by oral route. active Not Available Not Available No t Available amlodipine 5 mg tablet TAKE 1 TABLET BY MOUTH EVERY DAY active Not Available Not Available No t Available estradiol-n orethindron e acet 1 mg-0.5 mg tablet active Not Available Not Available Not Available alprazolam 0.25 mg tablet TAKE 1 TABLET BY MOUTH EVERY DAY NEEDED 2023 active Not Available Not Available Not Avai lable fluoxetine 20 mg tablet Take 1 tablet every day by oral route. active Not Available Not Available No t Available fluoxetine 20 mg capsule Take 3 capsules every day by oral route. active Not Available Not Available No t Available bupropion HCl XL 300 mg 24 hr tablet, extended release Take 1 tablet every day by oral route in the morning for 30 days. active Not Available Not Available No t Available bupropion HCl XL 150 mg 24 hr tablet, extended release TAKE 1 TABLET BY MOUTH EVERY DAY 2022 active Not Available Not Available Not Avai lable fluoxetine 60 mg tablet TAKE 1 TABLET BY MOUTH EVERY DAY 02/02 completed Not Available Not Available Not Available Rexulti 1 mg tablet active Not Available Not Available No t Available Slynd 4 mg (28) tablet active Not Available Not Available Not Available Slynd 02/02 completed Not Available Not Available Not Available Wegovy 0.5 mg/0.5 mL subcutaneou s pen injector Inject 0.5 mg every week by subcutane ous route. 2022 active Not Available Not Available Not Avai lable Vitals Date Recorded Body mass index (BMI) Body height Oxygen saturation Oxygen saturation in Arterial blood by Pulse oximetry Heart rate Body temperature Body weight Systolic blood pressure Diastolic blood pressure Provider Name and Address Organization Details Last Updated DateTime 2 36.3 kg/m2 167.64 cm 98 % 98 % 98 /min 98.1 [degF] 934458. 28 g 140 mm[Hg] 94 mm[Hg] Not Available [facility] 3 01:25:47 Date Recorded Body mass index (BMI) Body height Oxygen saturation Oxygen saturation in Arterial blood by Pulse oximetry Heart rate Body temperature Body weight Systolic blood pressure Diastolic blood pressure Provider Name and Address Organization Details Last Updated DateTime 2 36.3 kg/m2 167.64 cm 98 % 98 % 105 /min 98.3 [degF] 157997. 28 g 124 mm[Hg] 80 mm[Hg] Not Available [facility] 3 01:25:47 Date Recorded Body height Body mass index (BMI) Body weight Body temperature Heart rate Oxygen saturation Oxygen saturation in Arterial blood by Pulse oximetry Systolic blood pressure Diastolic blood pressure Provider Name and Address Organization Details Last Updated DateTime 3 167.64 cm 36 kg/m2 744679. 1 g 97.7 [degF] 102 /min 98 % 98 % 124 mm[Hg] 90 mm[Hg] JIMMY Gerber [place] [facility] 3 12:28:25 Date Recorded Body height Body mass index (BMI) Body weight Body temperature Heart rate Oxygen saturation Oxygen saturation in Arterial blood by Pulse oximetry Systolic blood pressure Diastolic blood pressure Provider Name and Address Organization Details Last Updated DateTime 3 167.64 cm 36.2 kg/m2 652246. 04 g 97.9 [degF] 91 /min 98 % 98 % 124 mm[Hg] 88 mm[Hg] Cecy Hidalgo MA [place] - [facility] 3 10:46:25 Social History None recorded. Functional Status None recorded. Mental Status None recorded. Family History Relationship Description Onset Age of this Age Resolved Age Notes LastModified by Organization Details LastModified Time Father Hypertensive disorder [id number] Not available 09/18/2022 01:25:19 Father Hypercholest erolemia [id number] Not available 09/18/2022 01:25:19 Mother Lupus erythematosu s [id number] Not available 09/18/2022 01:25:19 Medical History Condition Response BLINDNESS N RHEUMATIC FEVER N KIDNEY STONES N BLADDER PROBLEMS N MRSA N OTHER # 1 N POLIO N LUNG DISEASE/DISORDER N HISTORY OF DRUG ABUSE N RADIATION / CHEMOTHERAPY N COPD N Other # 2 N BLOOD DISEASES N SURGERY N EAR OR HEARING PROBLEMS N MUMPS N SHINGLES N FEMALE PROBLEMS / INFECTIONS N BOWEL PROBLEMS N DEPRESSION (INCLUDING POST ) Y STROKE/TIA N THYROID DISEASE N ULCERS N BENIGN PROSTATIC HYPERPLASIA N MEASLES N CERVICALGIA N TB SKIN TEST N HYPOTENSION N MYOCARDIAL INFARCTION N PARAPELGIA N OBESITY N GERD/NAUSEA N ANEURYSM N URINARY/BLADDER/KIDNEY PROBLEMS N CORONARY ARTERY DISEASE (CAD) N MENIERE'S DISEASE N ADDICTION CONCERNS N ENDOMETRIOSIS N USE OF BLOOD THINNERS N SKIN PROBLEMS N EMPHYSEMA N GASTROINTESTINAL DISORDER N MUSCLE,JOINT OR BONE PROBLEMS N GASTROINTESTINAL BLEEDING N BLOOD CLOTS N ASTHMA N CATARACTS N ERECTILE DYSFUNCTION N GI PROBLEMS N CHF N Low Testosterone N NEUROPATHY N INFERTILITY N AIDS/HIV N FRACTURES N CHEMOTHERAPY / RADIATION N VISION/EYE PROBLEMS N LIVER DISEASE N MALE HYPOGONADISM N HYPERTENSION Y TOURETTE'S N ANXIETY DISORDER Y BLOOD TRANSFUSION N ANEMIA/BLOOD DISORDER N CHRONIC EAR INFECTIONS N BRONCHITIS N TUBERCULOSIS N GLAUCOMA N FOOT PROBLEM N DIVERTICULITIS N SLEEP APNEA N CHICKENPOX N ALLERGIES/HAYFEVER N INFECTIOUS DISEASE N PROSTATE N HEART ARRHYTHMIA N INSOMNIA N HIGH CHOLESTEROL / HYPERLIPIDEMIA Y EYE PROBLEMS N HYPERTHYROIDISM N EATING DISORDER N EDEMA N CHRONIC PAIN SYNDROME N CONSTIPATION N CAROTID BLOCKAGE N BACK / NECK PROBLEMS N HAVE YOU BEEN HOSPITALIZED OR SEEN IN [facility] IN THE PAST YEAR ? N ATHEROSCLEROSIS N BREAST PROBLEMS N DIALYSIS N ECZEMA N FIBROMYALGIA N OSTEOPOROSIS N ARTHRITIS N NO SIGNIFICANT PAST MEDICAL HISTORY N APPENDICITIS N DIABETES, TYPE N BAD TEETH N HEARTBURN / REFLUX N ADD/ADHD N AUTISM SPECTRUM DISORDER (ASD) N HEPATITIS / LIVER DISEASE N PULMONARY DISEASE N GOUT N SLEEP DISORDER N ALZHEIMER'S DISEASE N PAIN N DEMENTIA N HERPES N SEIZURES/EPILEPSY N HEADACHES/MIGRAINES N VASCULAR DISEASE N PACEMAKER N DIZZINESS N HEART DISEASE/HEART PROBLEMS N KIDNEY DISEASE N SCARLET FEVER N MULTIPLE SCLEROSIS N DEVELOPMENTAL OR BEHAVIORAL DISORDERS N MENTAL DISORDER/ILLNESS N CANCER: SPECIFY N CARDIAC ARRHYTHMIA N PNEUMONIA N ATRIAL FIBRILLATION N Gall Stones N PULMONARY EMBOLISM N AUTOIMMUNE DISEASE N Gynecological History Statement/Question Response Abnormal Pap N Flow Moderate Date of LMP 02/19/2022 STIs/STDs N Duration of Flow (days) 5 Current Control Method BCPs Age at Menarche 13 How many live births 1 Date of Last Mammogram 05/06/2022 Frequency of Cycle (Q days) 28 Sexually Active? Y Menses Monthly Y Obstetrics History GPAL:G 1 P 0 0 1 1 Type Value Spontaneous 1 Living 1 Total 1 Past Encounters Encounter ID Performer Location Encounter Start Date Encounter Closed Date Diagnosis/Indication Diagnosis SNOMED-CT Code Diagnosis ICD10 Code [id number] [facility] Hilario hines [facility] [place] [address] 03/11/2022 00:00:00 03/11/2022 14:00:55 [id number] [facility] Hilario hines [facility] [place] [address] 05/16/2022 00:00:00 06/26/2022 09:55:11 [id number] Lona Randhawa MD [facility] Hilario hines [address] [place] [place] [address] 11/10/2022 12:20:11 11/10/2022 12:40:45 Acute sinusitis 79413513 J01.90 [id number] Lona Randhawa MD [facility] Hilario hines [address] [place], [place] [address] [place] [address] 12/19/2022 10:36:54 12/19/2022 11:07:46 Obesity 273517440 E66.9 Health Concerns Section Related Observation LastModified by Organization Detai ls LastModified Time None Recorded Concern Status LastModified by Organization Details LastModified Time None Recorded Advance Directives Directive None Recorded Payers Encounter Date Sequence Insurance Name Policy Number Policy Her Covered Member ID Her Member ID Guarantor Name 11/10/2022 2 [facility] [id number] Laurie Jacobsen [id number] Laurie Jacobsen 12/19/2022 2 [facility] [id number] Laurie Woodridge [id number] Laurie Delmar Notes Date Note Type Note Provider Name and Address Organization Details Recorded Time 11/10/2022 text/html Here today c/o fatigue and face hurts and coughing and s.t. Has a sinus infection. 2 COVID were negation Has pain along cheek bones. Has body aches but no fever. Is fatigued. Taking ibuprofen and no help with ibuprofen. Taking dayquil too. Lona Randhawa MD [address], [employer], [place], [address], [employer] 11/10/2022 12:43:34 12/19/2022 text/html Here today for med check. Does have insurance has [employer] Wants something for weight loss. She wants to try wegovy needs samples.She is on alprazolam as needed Lona Randhawa MD [address], [address], [place], [address], [employer] 12/19/2022 19:17:47 OBGyn Episode No OBEpisode recorded.
--- OUTSIDE RECORDS SUMMARY | 2024-07-08 03:46 | XMS_ITS | Clinical Summary ---
Author Organization [facility] B Address [address] [place] [address] Care Team Providers Care Senior Care Manager Name Role Phone Glenn Lambert MD Unavailable [phone] Tiffanie Randall NP Primary Care Provider [phone] Allergies No known active allergies Medications Slynd tablet tablet 2 Active FLUoxetine (PROzac) 60 mg tablet 2 Active ALPRAZolam (XANAX) 0.25 mg tablet 2 Active Vyvanse 60 mg capsule Active amLODIPine (NORVASC) 5 mg tabletIndications :Primary hypertension Take 1 tablet (5 mg total) by mouth nightly 90 tablet 1 4 01/07/20 25 Active buPROPion XL (WELLBUTRIN XL) 300 mg 24 hr tablet Take 1 tablet every day by oral route in the morning for 30 days. Active topiramate (TOPAMAX) 25 mg tablet Take 1 tablet (25 mg total) by mouth nightly for 14 days, THEN 2 tablets (50 mg total) nightly. 180 tablet 4 Active rizatriptan (MAXALT) 10 mg tabletIndications :Migraine Take 1 tablet (10 mg total) by mouth once as needed for migraine May repeat in 2 hours if unresolved. Do not exceed 30 mg in 24 hours. 20 tablet 1 4 01/20/20 25 Active oseltamivir (TAMIFLU) 75 mg capsule Take 1 capsule (75 mg total) by mouth 2 (two) times a day for 5 days 10 capsule 12/07/04/20 24 Active Problems Problem Noted Date Diagnosed Date New daily persistent headache 01/22/2024 Assessment & Plan (01/22/2024 2:18 PM CDT): Medications as ordered. Refer to neurology. Chronic migraine without aur a without status migrainosus, not intractable 01/22/2024 Assessment & Plan (01/22/2024 2:18 PM CDT): Will start topamax 25mg at bedtime for 2 weeks. If tolerated or needed, then increase to 50mg at bedtime for prevention. Use maxalt prn for migraine headaches. Discussed how to use medication. F/u 6-8 weeks for recheck. Morbid obesity due to excess calories 04/28/2022 Overview (04/28/2022): Added automatically from request for surgery [id number] Assessment & Plan (10/19/2023 7:50 PM CDT): BMI Follow-up includes: nutrition counseling and exercise counseling. BMI 37.0-37.9, adult 04/11/2022 Mixed hyperlipidemia 03/11/2022 Assessment & Plan (10/19/2023 7:51 PM CDT): Not currently on medication. Orders for labs today. Will continue to monitor FRANCISCO (obstructive sleep apnea) 11/18/2021 Overview (11/18/2021): No CPAP, she states that it was minor. Moderate episode of recurrent major depressive d isorder 11/18/2021 Assessment & Plan (10/19/2023 7:49 PM CDT): Stable. Managed by psychiatry. Assessment & Plan (11/18/2021 3:26 PM CDT): Will restart patient on pre propria on XL at 150 mg once daily rather than the 300 mg once daily. Patient has been off of bupropion for over a year due to . She would like to restart the bupropion XL, as she says that the combination between bupropion and fluoxetine works well for her. She does not have any suicidal ideations. Call 911 or go to nearest emergency room if you feel you will be a harm to herself or to others. Primary hypertension 11/18/2021 Assessment & Plan (10/19/2023 7:50 PM CDT): Stable/ Improved. Blood pressure is adequately controlled on current medication. We will not make any medication changes today. Will have her follow-up in 6 months for continued monitoring and management Assessment & Plan (11/18/2021 3:25 PM CDT): Blood pressure at goal of less than 140/90, continue current prescription medications. 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 Medical [facility] Virtual Care [address] [place] [phone] Radha Esposito NP Your Medications 06/29/2024 Patient Self-Triage [facility] [address] [place] [address] Mychart, Generic Provider from Last 3 Months Immunizations Name Administration Dates Next Due Influenza LAIV (Nasal) 07/20/2023(Deferr ed: Patient Refused),07/20/2022(Deferred: Patient Refused) MMR 03/07/2021 Tdap 03/05/2021 Surgical History Surgery Date Site/Laterality Comments SECTION 07/20/2020 - 07/19/2021 DILATION AND CURETTAGE OF UTERUS 07/20/2002 - 07/19/2003 Miscarriage Medical History Medical History Date Comments Depression 2003 Hypertension 2019 Anemia Anxiety Obesity Sleep apnea 2019 Family History Medical History Relation Name Comments Hypertension Father Lenard Obesity Father Lenard Sleep apnea Father Lenard Breast cancer Maternal Grandmother Yaneli Alcohol abuse Mother Mikayla Depression Mother Mikayla Lupus Mother Mikayla Mental illness Mother Mikayla Clotting disorder Sister Carla Relation Name Status Comments Father Lenard Maternal Grandmother Yaneli Mother Mikayla Sister Carla Social History Tobacco Use Types Packs/Day Years [...] on file Legal Sex 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 Gender Identity Not on file Sexual Orientation Not on file Obstetrics History Last Filed Vital Signs Vital Sign Reading Time Taken Comments Blood Pressure 122/86 01/20/2024 3:25 PM CDT Pulse 92 01/20/2024 3:25 PM CDT Temperature 36.7 ??C (98.1 ??F) 01/20/2024 3:25 PM CD T Respiratory Rate 16 11/18/2021 2:27 PM CDT Oxygen Saturation 98% 01/20/2024 3:25 PM CDT Inhaled Oxygen Concentration - - Weight 99.5 kg (219 lb 4.8 oz) 01/20/2024 3:25 P M CDT Height 167.6 cm (5' 6 ) 01/20/2024 3:25 PM CDT Body Mass Index 35.4 01/20/2024 3:25 PM CDT Plan of Treatment Health Maintenance Due Date Last Done Comments Breast Cancer Screening-Mammogram 1975 Cervical Cancer Screening 1975 Colon Cancer Screening-Colonoscopy 1975 Hepatitis B Screening 1993 Regular Well Visit/Exam 18-64 11/18/2022 11/18/2021 Influenza Vaccine (#1) 2024 Depression Screening 01/19/2025 01/20/2024, 10/19/2023, 11/18/2021 DTaP/Tdap/Td Vaccine (2 - Td or Tdap) 03/05/2031 03/05/2021 Hepatitis C Screening Completed 11/18/2023 Pneumococcal vaccine <65 Aged Out No longer eligible based on patient's age to complete this topic Procedures Procedure Name Priority Date/Time Associated Diagnosis Comments HEPATITIS C ANTIBODY Routine 11/18/2023 8:11 AM CDT Encounter for hepatitis C screening test for low risk patient from Last 3 Months or Most Recently Relevant to Health Maintenance Results * Hepatitis C antibody Blood (11/18/2023 8:11 AM CDT) Hep C Ab Nonreactive Nonreactive Comment: Interpretive Data Nonreactive: Antibodies to HCV not detected. Does NOT exclude the possibility of recent exposure to HCV. Equivocal: Equivocal for HCV antibodies. Supplemental molecular testing will be automatically performed to determine infection status in accordance with current CDC screening recommendations. ?? Reactive: Positive for HCV antibodies. ??This may represent current or past HCV infection. Supplemental molecular testing will be automatically performed to determine ??current infection status in accordance with current CDC screening recommendations. Interpretive data was last revised on 2019. Blood 11/18/2023 8:11 AM CDT 11/18/2023 1:54 PM CDT Tiffanie Randall NP LAB MICROBIOLOGY - GENERAL ORDER IVANNA Final Result [facility] [address] [address] Department of Laboratories [place] [phone] from Last 3 Months or Most Recently Relevant to Health Maintenance Insurance [facility] CHOICE PLUS [facility] CHOICE PLUS Care Teams Senior Care Manager Relationship Specialty Start Date End Date Tiffanie Randall NP [address] [place] [id number] PCP - General Family Medicine 10/19/23 Glenn Lambert MD [address] [address] Referring Physician Obstetrics and Gynecology 11/18/21
--- OUTSIDE RECORDS SUMMARY | 2024-07-08 03:46 | XMS_ITS | Encounter Summary ---
Author Organization [facility] Healthcare Address [address] [place] [address] Care Team Providers Care Share Holder Name Role Phone Glenn Lambert MD Unavailable [phone] Tiffanie Randall NP Primary Care Provider Reason for Visit * Reason Onset Date Comments appt request 01/18/2024 Encounter Details Date Type Department Care Team (Late st Contact Info) Description 01/18/2024 Telephone [facility] Medical Group Primary Care at [address] [phone] Tiffanie Randall NP [address] [place] [phone] appt request Social History Tobacco Use Types Packs/Day Years [...] on file 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 Warm transferred to back line. Does message need to be routed? No * Telephone Encounter - Franklin Mix - 01/18/2024 7:52 AM CDT Called patient to schedule her an appt with Tiffanie per her [facility] [employer] message. Left VM to call back and schedule. Please transfer to Franklin Hammer or Rey to reschedule. Thank you documented in this encounter Plan of Treatment Not on file documented as of this encounter Visit Diagnoses Not on filedocumented in this encounter Care Teams Share Holder Relationship Specialty Start Date End Date Tiffanie Randall NP [address] [address] PCP - General Family Medicine 10/19/23 Glenn Lambert MD [address] [facility] [address] [place] [address] Referring Physician Obstetrics and Gynecology 11/18/21 documented as of this encounter
--- OUTSIDE RECORDS SUMMARY | 2024-07-08 03:46 | XMS_ITS | Encounter Summary ---
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 Gender Identity Not on file Sexual Orientation [...] Procedure Name Priority Date/Time Associated Diagnosis Comments EGFR Routine 11/18/2023 8:11 AM CDT Mixed hyperlipidemia DIFFERENTIAL AUTO Routine 11/18/2023 8:1 1 AM CDT Primary hypertension THYROID FUNCTION CASCADE Routine 11/18/2023 8:11 AM CDT Primary hypertension CBC WITH AUTO DIFFERENTIAL Routine 11/18/2023 8:11 AM CDT Primary hypertension HEPATITIS C ANTIBODY Routine 11/18/2023 8:11 AM CDT Encounter for hepatitis C screening test for low risk patient LIPID PANEL Routine 11/18/2023 8:11 AM CDT Mixed hyperlipidemia COMPREHENSIVE METABOLIC PANEL Routine 11/18/2023 8:11 AM CDT Mixed hyperlipidemia documented in this encounter Results * eGFR (11/18/2023 8:11 AM CDT) eGFR 66 >=60 mL/min/1. 73 m2 Comment: Interpretive Data Reference Interval Normal ?>/= 90 mL/min/1.73m2 Mildly decreased* ? 60 - 89 mL/min/1.73m2 Mildly to moderately decreased ?45 - 59 mL/min/1.73m2 Moderately to severely decreased ??30 - 44 mL/min/1.73m2 Severely decreased ?15 - 29 mL/min/1.73m2 Kidney Failure ?< 15 ??mL/min/1.73m2 *Relative to young adult level Estimated glomerular filtration rate is determined by the 2020 CKD-EPI equation recommended by the National Kidney Foundation (A Unifying Approach to GFR Estimation: Recommendations of the NKF-ASK Task Force on Reassessing the Inclusion of Race in Diagnosing Kidney Disease, JASN 2020). The CKD-EPI equation should not be used for patients with unstable renal function and has not been validated in children and those over 70. Current interpretive data was last reviewed 2021. Blood 11/18/2023 8:11 AM CDT 11/18/2023 2:31 PM CDT us Tiffanie Randall NP LAB BLOOD ORDERABLES Final Resul t [facility] [address] [address] Department [place] [address] * Differential, auto (11/18/2023 8:11 AM CDT) Neutrophil abs 5.8 1.5 - 6.5 K/cumm Imm gran abs 0.0 0.0 - 0.1 K/cumm [facility] Lymphocyte abs 1.4 0.8 - 3.3 K/cumm [facility] Monocyte abs 0.4 0.2 - 0.8 K/cumm [facility] Eosinophil abs 0.2 0.0 - 0.5 K/cumm [facility] Basophil abs 0.1 0.0 - 0.1 K/cumm [facility] Neutrophil pct 73.6 % [facility] Comment: Interpretive Data Percent cell count reference ranges are not reported, since discordance with absolute values may lead to misinterpretation of CBC data. Current Interpretive Data was last revised on 2017. Imm gran pct 0.4 % [facility] Comment: Interpretive Data Percent cell count reference ranges are not reported, since discordance with absolute values may lead to misinterpretation of CBC data. Current Interpretive Data was last revised on 2017. Lymphocyte pct 17.2 % [facility] Comment: Interpretive Data Percent cell [...] was last revised on 2017. Eosinophil pct 2.4 % [facility] Comment: Interpretive Data Percent cell count reference ranges are not reported, since discordance with absolute values may lead to misinterpretation of CBC data. Current Interpretive Data was last revised on 2017. Basophil pct 0.8 % [facility] Comment: Interpretive Data Percent cell count reference ranges are not reported, since discordance with absolute values may lead to misinterpretation of CBC data. Current Interpretive Data was last revised on 2017. Blood 11/18/2023 8:11 AM CDT 11/18/2023 1:54 PM CDT Tiffanie Randall NP LAB BLOOD ORDERABLES Final Resul t [facility] [address] [address] Department [place] [address] * Hepatitis C antibody Blood (11/18/2023 8:11 [...] MICROBIOLOGY - GENERAL ORDER IVANNA Final Result Performing Organization Address [facility] de Phone Number [facility] [place] [address] [facility] [employer] [address] * Thyroid Function [place] (11/18/2023 8:11 AM CDT) TSH 0.95 0.30 - 4.20 mcIUnit/mL Blood 11/18/2023 8:11 AM CDT 11/18/2023 1:54 PM CDT Tiffanie Prakash [place] LAB BLOOD ORDERABLES Final Resul t Performing Organization Address [facility] de Phone Number FERN [id number] [address] [place] [address] * (ABNORMAL) Lipid panel (11/18/2023 8:11 AM CDT) Cholesterol 187 30 - 199 mg/dL Comment: Interpretive Data Ages < or = 19 years ??Acceptable: ? <170 mg/dL ??Borderline high: ??170-199 mg/dL ??High: ? >or= 200 mg/dL Ages > or = 20 years ??Desirable: ?<200 mg/dL ??Borderline high: ??200-239 mg/dL ??High: ? >or= 240 mg/dL Literature References: 1. Expert Panel on Integrated Guidelines for Cardiovascular Health and Risk Reduction in Children and Adolescents. Pediatrics 2011;128:S213 2. NCEP Expert Panel. Circulation 2004;110:227 Current Interpretive Data was last revised on 2018. Triglycerides 214(H) <=149 mg/dL [facility] Comment: Interpretive Data Ages < or = 9 years ??Acceptable: ? <75 mg/dL ??Borderline high: ??75-99 mg/dL ??High: ? >or= 100 mg/dL Ages 10 to 20 years ??Acceptable: ? <90 mg/dL ??Borderline high: ??90-129 mg/dL ??High: ? >or= 130 mg/dL Ages > or = 20 years ??Desirable: ?<150 mg/dL ??Borderline high: ??150-199 mg/dL ??High: ? 200-499 mg/dL ?Very high: ?? >or= 499 mg/dL Literature References: 1. Expert Panel on Integrated Guidelines for Cardiovascular Health and Risk Reduction in Children and Adolescents. Pediatrics 2011;128:S213 2. NCEP Expert Panel. Circulation 2004;110:227 Current Interpretive Data was last revised on 2018. HDL 41 >=40 mg/dL [facility] [place] Comment: Interpretive Data Ages < or = 19 years ??Acceptable: ? >45 mg/dL ??Borderline low: ?? 40-45 mg/dL ??Low: ? <40 mg/dL Ages > or = 20 years ??Desirable: ?>or= 60 mg/dL ??Low: ? <40 mg/dL Literature References: 1. Expert Panel on Integrated Guidelines for Cardiovascular Health and Risk Reduction in Children and Adolescents. Pediatrics 2011;128:S213 2. NCEP Expert Panel. Circulation 2004;110:227 Current Interpretive Data was last revised on 2018. LDL, calculated 103 <=129 mg/dL [facility] Comment: Interpretive Data Ages < or = 19 years ??Acceptable: ? <110 mg/dL ??Borderline high: ??110-129 mg/dL ??High: ?>or= 130 mg/dL Ages > or = 20 years ??Optimal: ? <100 mg/dL ??Near optimal: ?100-129 mg/dL ??Borderline high: ?? 130-159 mg/dL ??High: ?>160 mg/dL Literature References: 1. Expert Panel on Integrated Guidelines for Cardiovascular Health and Risk Reduction in Children and Adolescents. Pediatrics 2011;128:S213 2. NCEP Expert Panel. Circulation 2004;110:227 Current Interpretive Data was last revised on 2018. Non-HDL Cholesterol 146 mg/dL [facility] CH Comment: Interpretive Data Ages < or = 19 years ??Acceptable: ?<120 mg/dL ??Borderline high: ??120-144 mg/dL ??High: ?>145 mg/dL Ages > or = 20 years ??When triglycerides are >200 mg/dL, Non-HDL cholesterol is a secondary target of ? therapy with treatment goals that are 30 mg/dL greater than the LDL cholesterol target. ? Literature References: 1. Expert Panel on Integrated Guidelines for Cardiovascular Health and Risk Reduction in Children and Adolescents. Pediatrics 2011;128:S213 2. NCEP Expert Panel. Circulation 2004;110:227 Current Interpretive Data was last revised on 2018. Chol/HDL ratio 5 [facility] CH Blood 11/18/2023 8:11 AM CDT 11/18/2023 1:54 PM CDT Tiffanie Randall NP LAB BLOOD ORDERABLES Final Resul t [facility] [address] [address] Department [place] [address] * Comprehensive metabolic panel (11/18/2023 8:11 AM CDT) Sodium 139 135 - 145 mmol/L Potassium, pl 4.3 3.3 - 4.9 mmol/L [facility] Chloride 103 97 - 110 mmol/L [facility] CO2 24 22 - 32 mmol/L [facility] Anion gap 12 2 - 15 mmol/L [facility] BUN 16 6 - 25 mg/dL [facility] Creatinine 1.05 0.60 - 1.10 mg/dL [facility] CH Glucose 88 70 - 199 mg/dL [facility] Comment: Interpretive Data Fasting glucose >/= 126 mg/dl is diagnostic for diabetes. ?? Fasting is defined as no caloric intake for at least 8 hours. Fasting glucose between 100 mg/dl to 125 mg/dl is diagnostic of prediabetes. In a patient with classic symptoms of hyperglycemia or hyperglycemic crisis, a random glucose >/= 200 mg/dl is diagnostic for diabetes. In the absence of unequivocal hyperglycemia, results should be confirmed by repeat testing. The classification and Diagnosis of Diabetes Diabetes Care 2021; 46: S19-S40. Current interpretive data was last revised 2022. Calcium 10.1 8.5 - 10.3 mg/dL [facility] Bilirubin, total 0.4 0.1 - 1.2 mg/dL [facility] Protein, pl 7.0 6.5 - 8.5 g/dL [facility] Albumin 4.2 3.5 - 5.0 g/dL [facility] Alk phos 96 40 - 130 Units/L [facility] ALT 12 7 - 45 Units/L [facility] AST 26 10 - 45 Units/L [facility] Blood 11/18/2023 8:11 AM CDT 11/18/2023 1:54 PM CDT Tiffanie Randall NP LAB BLOOD ORDERABLES Final Resul t [facility] [address] [address] Department [place] [address] * (ABNORMAL) CBC with auto differential (11/18/2023 8:11 AM CDT) WBC 7.9 3.8 - 9.9 K/cumm Hgb 13.2 11.9 - 15.5 g/dL [facility] CH Hct 41.1 35.6 - 45.5 % [facility] CH Plt 416(H) 150 - 400 K/cumm [facility] MPV 9.0(L) 9.1 - 12.3 fL [facility] RBC 4.59 3.90 - 5.20 M/cumm [facility] MCV 89.5 81.3 - 96.4 fL [facility] MCH 28.8 27.1 - 33.3 pg [facility] CH MCHC 32.1(L) 32.3 - 35.7 g/dL [facility] RDW CV 12.9 11.1 - 14.9 % [facility] CH RDW SD 42.3 35.7 - 48.1 fL [facility] NRBC abs 0.00 0.00 - 0.01 K/cumm [facility] Blood 11/18/2023 8:11 AM CDT 11/18/2023 1:54 PM CDT Tiffanie Randall NP LAB BLOOD ORDERABLES Final Resul t Performing Organization Address City/State/[facility] Co de Phone Number FERN [phone] [address] Department [place] [address] documented in this encounter Visit Diagnoses Diagnosis Primary hypertension Unspecified essential hypertension Mixed hyperlipidemia Encounter for hepatitis C screening test for low risk patient documented in this encounter Care Teams Classics Teacher Relationship Specialty Start Date End Date Tiffanie Randall NP [address] [facility] [address] [place] [address] PCP - General Family Medicine 10/19/23 Glenn Lambert MD [address] [facility] [address] [place] [address] Referring Physician Obstetrics and Gynecology 11/18/21 documented as of this encounter
--- OUTSIDE RECORDS SUMMARY | 2024-07-08 03:46 | XMS_ITS | Encounter Summary ---
Author Organization [facility] Address [address] [address] Phone Care Team Providers Care Hot Mill Operator Name Role Phone Lona Randhawa MD Primary Care Provider [phone] Reason for Visit * Reason Comments Headache Encounter Details Date Type Department Care Team ([facility] st Contact Info) Description 09/04/2023 2:03 PM MELTER CASTER - 09/04/2023 4:13 PM MELTER CASTER Emergency [facility] Emergency [address] [place] [address] Grayson Frederick, PAC [address] [place] [address] Hypokalemia Discharge Disposition: Discharged to home or Selfcare Social History Tobacco Use Types Packs/Day Years Used Date Smoking Tobacco: Never Smokeless Tobacco: Never Tobacco Cessation:Counseling Given: Not Answered Comments No Sex and Gender Information Value Date Recorded Sex Assigned at Not on file Legal Sex Female 2:01 PM MELTER CASTER Gender Identity Not on file Sexual Orientation Not on file documented as of this encounter Last Filed Vital Signs Vital Sign Reading Time Taken Comments Blood Pressure 116/70 09/04/2023 4:11 PM MELTER CASTER Pulse 84 09/04/2023 4:11 PM MELTER CASTER Temperature 36.9 ??C (98.5 ??F) 09/04/2023 2:11 PM CS T Respiratory Rate 18 09/04/2023 4:11 PM MELTER CASTER Oxygen Saturation 99% 09/04/2023 4:11 PM MELTER CASTER Inhaled Oxygen Concentration - - Weight 98 kg (216 lb) 09/04/2023 2:11 PM MELTER CASTER Height 165.1 cm (5' 5 ) 09/04/2023 2:11 PM MELTER CASTER Body Mass Index 35.94 09/04/2023 2:11 PM MELTER CASTER documented in this encounter Medications at Time of Discharge ketorolac (TORADOL) 10 MG Tablet Take 1 Tablet by mouth every 6 hours as needed for Moderate or more severe pain. 20 Tablet 09/04/2023 metoclopramide (REGLAN) 10 MG Tablet Take 1 Tablet by mouth 4 times daily as needed for Nausea - 1st line. 10 Tablet 09/04/2023 documented as of this encounter ED Notes * Mei Newsome RN - 09/04/2023 4:11 PM CST Patient discharged. Discharge instructions and patient educational material reviewed with patient; questions and concerns addressed; patient verbalizes understanding, using teach back. Patient was given 2 prescriptions. Patient was informed no drinking alcohol, driving or operating heavy machinery while taking narcotics or muscle relaxants. Patient discharged per ambulatory mode with spouse as responsible constitution party. SL D/C'ed with Kanu cath intact. Pt is alert and oriented x 4, vss, no distress noted. ER CASTER * Mei Newsome RN - 09/04/2023 4:00 PM CST Patient is resting in room with call light at bedside. Patient informed about wait time and verbalizes understanding. Patient denies needs at this time and verbalizes understanding that RN will complete hourly rounding. ER CASTER * Mei Newsome RN - 09/04/2023 3:00 PM CST Patient is resting in room with call light at bedside. Patient informed about wait time and verbalizes understanding. Patient denies needs at this time and verbalizes understanding that RN will complete hourly rounding. ER CASTER * Otoniel, Grayson Arteaga, PAC - 09/04/2023 2:30 PM CST Chief Complaint Patient presents with ??? Headache Laurie Jacobsen is a 48 y.o. female who presents to the ED c/o global headache intermittently for 2months, becoming constant over the last 2 weeks. Patient denies head trauma or neuro changes. Taking motrin with limited relief. No history of migraine. History reviewed. No pertinent past medical history. No current facility-administered medications for this encounter. Current Outpatient Medications Medication Sig Dispense Refill ??? ketorolac (TORADOL) 10 MG Tablet Take 1 Tablet by mouth every 6 hours as needed for Moderate ormore severe pain. 20 Tablet 0 ??? metoclopramide (REGLAN) 10 MG Tablet Take 1 Tablet by mouth 4 times daily as needed for Nausea - 1st line. 10 Tablet 0 No Known Allergies History reviewed. No pertinent past medical history. Past Surgical History: Procedure Laterality Date ??? DILATION AND CURETTAGE OF UTERUS 2002 ??? SKIN CANCER EXCISION 05/2023 Social History Socioeconomic History ??? Marital status: Spouse name: Not on file ??? Number of children: Not on file ??? Years of education: Not on file ??? Highest education level: Not on file Occupational History ??? Not on file Tobacco Use ??? Smoking status: Never ??? Smokeless tobacco: Never Substance and Sexual Activity ??? Alcohol use: Not on file ??? Drug use: Not on file ??? Sexual activity: Not on file Other Topics Concern ??? Not on file Social History Narrative ??? Not on file Social Determinants of Health Financial Resource Needs: Not on file Food Insecurity Needs: Not on file Transportation Needs: Not on file Physical Activity: Not on file Stress: Not on file Social Integration: Not on file Intimate Partner Violence: Not on file Housing Stability: Not on file BP 110/60 Pulse 88 Temp 98.5 ??F (36.9 ??C) (Tympanic) Resp 20 Ht 5' 5 (1.651 m) Wt 216 lb (98 kg) LMP (LMP Unknown) Comment: been awhile because of my control SpO2 99% BMI 35.94 kg/m?? Review of Systems Constitutional: Negative for chills, fatigue and fever. Respiratory: Negative for cough, chest tightness, shortness of breath and wheezing. Cardiovascular: Negative for chest pain and palpitations. Gastrointestinal: Negative for abdominal pain, diarrhea, nausea and vomiting. Genitourinary: Negative for dysuria, frequency, hematuria and urgency. Musculoskeletal: Negative for arthralgias and back pain. Skin: Negative for color change and wound. Neurological: Positive for headaches. Negative for dizziness, weakness, light- headedness and numbness. All other systems reviewed and are negative. Physical Exam Vitals and nursing note reviewed. Constitutional: General: She is not in acute distress. Appearance: She is well-developed. She is not diaphoretic. HENT: Head: Normocephalic and atraumatic. Eyes: Extraocular Movements: Extraocular movements intact. Pupils: Pupils are equal, round, and reactive to light. Cardiovascular: Rate and Rhythm: Normal rate and regular rhythm. Heart sounds: Normal heart sounds. No murmur heard. Pulmonary: Effort: Pulmonary effort is normal. No respiratory distress. Breath sounds: Normal breath sounds. No wheezing, rhonchi or rales. Abdominal: General: Bowel sounds are normal. There is no distension. Palpations: Abdomen is soft. Tenderness: There is no abdominal tenderness. Skin: General: Skin is warm and dry. Neurological: Mental Status: She is alert and oriented to person, place, and time. GCS: GCS eye subscore is 4. GCS verbal subscore is 5. GCS motor subscore is 6. Cranial Nerves: No cranial nerve deficit, dysarthria or facial asymmetry. Sensory: No sensory deficit. Motor: No weakness. Psychiatric: Behavior: Behavior normal. CT HEAD OR BRAIN WO CONTRAST Final Result IMPRESSION: No acute intracranial findings. CBC w/ Diff Final Result CMP Final Result Magnesium Final Result Procedures Recent Results (from the past 24 hour(s)) CMP Result Value Ref Range SODIUM 140 136 - 145 mmol/L POTASSIUM 2.9 (L) 3.5 - 5.1 mmol/L CHLORIDE 104 98 - 107 mmol/L CO2, VENOUS 24 22 - 30 mmol/L ANION GAP 14.9 <18.0 mmol/L GLUCOSE 127 (H) 70 - 99 mg/dL BUN 12 5 - 18 mg/dL CREATININE, BLOOD 1.11 (H) 0.60 - 1.00 mg/dL BUN/CREATININE RATIO 11 (L) 12 - 20 ratio TOTAL PROTEIN 7.0 6.3 - 8.2 g/dL ALBUMIN 4.0 3.5 - 5.0 g/dL A/G RATIO 1.3 1.0 - 2.2 CALCIUM 9.4 8.7 - 10.5 mg/dL T BILI 0.2 0.2 - 1.2 mg/dL SGOT (AST) 17 5 - 34 U/L SGPT (ALT) 23 0 - 55 U/L ALKALINE PHOSPHATASE 84 40 - 150 U/L GFR, ESTIMATED >60 >=60 GFR, EST. >60 >=60 GFR, EST. NONAFRICAN 52 (L) >=60 Magnesium Result Value Ref Range MAGNESIUM 1.7 1.6 - 2.6 mg/dL CBC with Auto Differential Result Value Ref Range WBC 7.43 4.00 - 12.00 10(3)/mcL RBC 4.29 3.80 - 5.30 10(6)/mcL HEMOGLOBIN (HGB) 12.3 12.0 - 15.8 g/dL HEMATOCRIT (HCT) 35.9 (L) 36.0 - 47.0 % MCV 83.7 82.0 - 96.0 fL MCH 28.7 26.0 - 34.0 pg MCHC 34.3 31.0 - 36.0 g/dL PLATELET COUNT 362 140 - 440 10(3)/mcL RDW 12.5 11.8 - 15.5 % MPV 8.4 (L) 9.7 - 12.4 fL NEUTROPHILS 66.0 47.0 - 73.0 % LYMPHOCYTES 24.1 18.0 - 42.0 % MONOCYTES 6.6 4.0 - 12.0 % EOSINOPHILS 2.6 0.0 - 5.0 % BASOPHILS 0.7 0.0 - 1.0 % ABSOLUTE NEUTROPHILS 4.91 1.60 - 7.70 10(3)/mcL ABSOLUTE LYMPHOCYTES 1.79 1.30 - 3.20 10(3)/mcL ABSOLUTE MONOCYTES 0.49 0.20 - 1.00 10(3)/mcL ABSOLUTE EOSINOPHIL 0.19 0.00 - 0.40 10(3)/mcL ABSOLUTE BASOPHILS 0.05 0.00 - 0.10 10(3)/mcL NRBC PER [address] HEAD OR BRAIN WO CONTRAST (Final result) Result time 09/04/23 14:52:00 Final result by Kayy Narvaez MD (09/04/23 14:52:00) Impression: IMPRESSION: No acute intracranial findings. Narrative: EXAM DESCRIPTION: CT HEAD OR BRAIN WO CONTRAST REASON FOR STUDY: c/o intermittent headache x 2-3 months. hx of migraines. TECHNIQUE: Axial images acquired through the brain without intravenous contrast. Images stored on PACS. Automated exposure control was used as a dose optimization technique for this examination. COMPARISON: No comparison. FINDINGS: BRAIN: No acute hemorrhage, mass, mass effect or shift. There is normal blanco-white differentiation. Normal white matter. Posterior fossa appears normal. Beam hardening artifact through the lower brainstem. EXTRA-AXIAL SPACES: No fluid collections. No masses. CALVARIUM: No fracture. SINUSES/MASTOIDS: No fluid or mucosal thickening. ORBITS: No significant abnormality. OTHER: No other significant abnormality. THIS IS AN ELECTRONICALLY VERIFIED FINAL REPORT 09/04/2023 2:49 PM - Electronically signed by Livia Narvaez M.D. LC: RE Report ID: [id number] Reading Location: [place] [address] Medical Decision Making See HPI. 2 month headache without neuro changes resolved in the ED with migraine cocktail. Head CT completed and negative. Will continue toradol and reglan outpatient. PCP follow up in 1-2 days. Return to ED for worsening sxs. Headache: acute illness or injury Hypokalemia: acute illness or injury Clinical Impression 1. Headache 2. Hypokalemia Disposition: Discharge The patient remained stable throughout their ED stay. My clinical impression was discussed with thepatient/family. Labs and radiology results were reviewed with them. I gave them the opportunity to ask questions, and addressed them as completely as possible given the information available at present. The therapeutic plan was discussed, advised to take medications as instructed, instructions weregiven and the importance of primary care follow up was stressed and encouraged. The patient/family voiced understanding of the plan, indications to return, and the need for follow up. Cosigned by Johnathan Ortega MD at 09/04/2023 5:28 PM MELTER CASTER ER CASTER ER CASTER * Chary Schwartz RN - 09/04/2023 2:09 PM CST Patient ambulatory to ED room 8 with c/o intermittent headache for the last few months that has become constant for the last 2 weeks. States she has tried OTC medications without relief. Denies hx migraines, states her PMD says it can't be migraines because I'm not sensitive to lights or sounds. ER CASTER documented in this encounter Miscellaneous Notes * PatientPass Patient Instructions - Grayson Frederick PAC - 09/04/2023 4:05 PM CST Images from the original note were not included. Patient Education Table of Contents General Headache Without Cause Hypokalemia To view videos and all your education online visit, [email or web address] or scan this QR code with your smartphone. Access to this content will in one year. General Headache Without Cause A headache is pain or discomfort you feel around the head or neck area. There are many causes and types of headaches. In some cases, the cause may not be found. Follow these instructions at home: Watch your condition for any changes. Let your doctor know about them. Take these steps to help with your condition: Managing pain Take vzdo-dwb-csibbwo and prescription medicines only as told by your doctor. This includes medicines for pain that are taken by mouth or put on the skin. Lie down in a dark, quiet room when you have a headache. If told, put ice on your head and neck area: ? Put ice in a plastic bag. ? Place a towel between your skin and the bag. ? Leave the ice on for 20 minutes, 2?3 times per day. ? Take off the ice if your skin turns bright red. This is very important. If you cannot feel pain, heat, or cold, you have a greater risk of damage to the area. If told, put heat on the affected area. Use the heat source that your doctor recommends, such as a moist heat pack or a heating pad. ? Place a towel between your skin and the heat source. ? Leave the heat on for 20?30 minutes. ? Take off the heat if your skin turns bright red. This is very important. If you cannot feel pain,heat, or cold, you have a greater risk of getting burned. Keep lights dim if bright lights bother you or make your headaches worse. Eating and drinking Eat meals on a regular schedule. If you drink alcohol: ? Limit how much you have to: ? 0?1 drink a day for women who are not . ? 0?2 drinks a day for men. ? Know how much alcohol is in a drink. In the [place] one drink equals one 12 oz bottle of beer (355 mL), one 5 oz glass of wine (148 mL), or one 1? oz glass of hard liquor (44 mL). Stop drinking caffeine, or drink less caffeine. General instructions Keep a journal to find out if certain things bring on headaches. For example, write down: ? What you eat and drink. ? How much sleep you get. ? Any change to your diet or medicines. Get a massage or try other ways to relax. Limit stress. Sit up straight. Do not tighten (tense) your muscles. Do not smoke or use any products that contain nicotine or tobacco. If you need help quitting, ask your doctor. Exercise regularly as told by your doctor. Get enough sleep. This often means 7?9 hours of sleep each night. Keep all follow-up visits. This is important. Contact a doctor if: Medicine does not help your symptoms. You have a headache that feels different than the other headaches. You feel like you may vomit (nauseous) or you vomit. You have a fever. Get help right away if: Your headache: ? Gets very bad quickly. ? Gets worse after a lot of physical activity. You have any of these symptoms: ? You continue to vomit. ? A stiff neck. ? Trouble seeing. ? Your eye or ear hurts. ? Trouble speaking. ? Weak muscles or you lose muscle control. ? You lose your balance or have trouble walking. You feel like you will pass out (faint) or you pass out. You are mixed up (confused). You have a seizure. These symptoms may be an emergency. Get help right away. Call your local emergency services (911 int [place] Do not wait to see if the symptoms will go away. Do not drive yourself to the hospital. Summary A headache is pain or discomfort that is felt around the head or neck area. There are many causes and types of headaches. In some cases, the cause may not be found. Keep a journal to help find out what causes your headaches. Watch your condition for any changes. Let your doctor know about them. Contact a doctor if you have a headache that is different from usual, or if medicine does not help your headache. Get help right away if your headache gets very bad, you throw up, you have trouble seeing, you loseyour balance, or you have a seizure. This information is not intended to replace advice given to you by your health care provider. Make sure you discuss any questions you have with your health care provider. Document Released: 2009-04-14 Document Updated: 2021-12-04 Document Reviewed: 2021-12-04 [employer] Patient Education ? 2022 [employer] Hypokalemia Hypokalemia means that the amount of potassium in the blood is lower than normal. Potassium is a mineral (electrolyte) that helps regulate the amount of fluid in the body. It also stimulates muscle tightening (contraction) and helps nerves work properly. Normally, most of the body's potassium is inside cells, and only a very small amount is in the blood. Because the amount in the blood is so small, minor changes to potassium levels in the blood can be life-threatening. What are the causes? This condition may be caused by: Antibiotic medicine. Diarrhea or vomiting. Taking too much of a medicine that helps you have a bowel movement (laxative)can cause diarrhea and lead to hypokalemia. Chronic kidney disease (CKD). Medicines that help the body get rid of excess fluid (diuretics). Eating disorders, such as anorexia or bulimia. Low magnesium levels in the body. Sweating a lot. What are the signs or symptoms? Symptoms of this condition include: Weakness. Constipation. Fatigue. Muscle cramps. Mental confusion. Skipped heartbeats or irregular heartbeat (palpitations). Tingling or numbness. How is this diagnosed? This condition is diagnosed with a blood test. How is this treated? This condition may be treated by: Taking potassium supplements. Adjusting the medicines that you take. Eating more foods that contain a lot of potassium. If your potassium level is very low, you may need to get potassium through an IV and be monitored in the hospital. Follow these instructions at home: Eating and drinking Eat a healthy diet. A healthy diet includes fresh fruits and vegetables, whole grains, healthy fats, and lean proteins. If told, eat more foods that contain a lot of potassium. These include: ? Nuts, such as peanuts and pistachios. ? Seeds, such as sunflower seeds and pumpkin seeds. ? Peas, lentils, and vela beans. ? Whole grain and bran cereals and breads. ? Fresh fruits and vegetables, such as apricots, avocado, bananas, cantaloupe, kiwi, oranges, tomatoes, asparagus, and potatoes. ? Juices, such as orange, tomato, and prune. ? Lean meats, including fish. ? Milk and milk products, such as yogurt. General instructions Take fcto-bqm-muadcax and prescription medicines only as told by your health care provider. This includes vitamins, natural food products, and supplements. Keep all follow-up visits. This is important. Contact a health care provider if: You have weakness that gets worse. You feel your heart pounding or racing. You vomit. You have diarrhea. You have diabetes and you have trouble keeping your blood sugar in your target range. Get help right away if: You have chest pain. You have shortness of breath. You have vomiting or diarrhea that lasts for more than 2 days. You faint. These symptoms may be an emergency. Get help right away. Call 911. Do not wait to see if the symptoms will go away. Do not drive yourself to the hospital. Summary Hypokalemia means that the amount of potassium in the blood is lower than normal. This condition is diagnosed with a blood test. Hypokalemia may be treated by taking potassium supplements, adjusting the medicines that you take, or eating more foods that are high in potassium. If your potassium level is very low, you may need to get potassium through an IV and be monitored in the hospital. This information is not intended to replace advice given to you by your health care provider. Make sure you discuss any questions you have with your health care provider. Document Released: 2006-07-06 Document Updated: 2022-03-20 Document Reviewed: 2022-03-20 [employer] Patient Education ? 2022 [employer] ER CASTER documented in this encounter Plan of Treatment Not on file documented as of this encounter Procedures Procedure Name Priority Date/Time Associated Diagnosis Comments CT HEAD OR BRAIN WO CONTRAST Stat with Interpretation 09/04/2023 2:40 PM MELTER CASTER CBC WITH AUTO DIFFERENTIAL STAT 09/04/2023 2:30 PM MELTER CASTER MAGNESIUM (MG) STAT 09/04/2023 2:30 PM MELTER CASTER CMP (COMPREHENSIVE METABOLIC PANEL) STAT 09/04/2023 2:30 PM MELTER CASTER COMPLETE BLOOD COUNT (CBC) WITH DIFF STAT 09/04/2023 2:30 PM MELTER CASTER documented in this encounter Results * CT HEAD OR BRAIN WO CONTRAST (09/04/2023 2:40 PM MELTER CASTER) Anatomical Region Laterality Modality Head N/A Computed Tomogra phy 09/04/2023 2:49 PM MELTER CASTER Impressions 09/04/2023 2:52 PM MELTER CASTER IMPRESSION: No acute intracranial findings. Narrative 09/04/2023 2:52 PM MELTER CASTER EXAM DESCRIPTION: CT HEAD OR BRAIN WO CONTRAST REASON FOR STUDY: c/o intermittent headache x 2-3 months. ??hx of migraines. ? TECHNIQUE: Axial images acquired through the brain without intravenous contrast. ??Images stored on PACS. ?? Automated exposure control was used as a dose optimization technique for this examination. COMPARISON: No comparison. FINDINGS: BRAIN: ?? No acute hemorrhage, mass, mass effect or shift. ?? There is normal blanco-white differentiation. ?Normal white matter. ?Posterior fossa appears normal. ??Beam hardening artifact through the lower brainstem. EXTRA-AXIAL SPACES: ?? No fluid collections. No masses. CALVARIUM: ?? No fracture. SINUSES/MASTOIDS: ?? No fluid or mucosal thickening. ORBITS: ?? No significant abnormality. OTHER: ?? No other significant abnormality. THIS IS AN ELECTRONICALLY VERIFIED FINAL REPORT 09/04/2023 2:49 PM - Electronically signed by ??Livia Narvaez M.D. LC: RE D: ??09/04/2023 2:49 PM T: ??09/04/2023 2:49 PM Report ID: [id number] Reading Location: ??[id number] Procedure Note Kayy Narvaez MD - 09/04/2023 EXAM DESCRIPTION: CT HEAD OR BRAIN WO CONTRAST REASON FOR STUDY: c/o intermittent headache x 2-3 months. hx of migraines. TECHNIQUE: Axial images acquired through the brain without intravenous contrast. Images stored on PACS. Automated exposure control was used as a dose optimization technique for this examination. COMPARISON: No comparison. FINDINGS: BRAIN: No acute hemorrhage, mass, mass effect or shift. There is normal blanco-white differentiation. Normal white matter. Posterior fossa appears normal. Beam hardening artifact through the lower brainstem. EXTRA-AXIAL SPACES: No fluid collections. No masses. CALVARIUM: No fracture. SINUSES/MASTOIDS: No fluid or mucosal thickening. ORBITS: No significant abnormality. OTHER: No other significant abnormality. THIS IS AN ELECTRONICALLY VERIFIED FINAL REPORT 09/04/2023 2:49 PM - Electronically signed by Livia Narvaez M.D. LC: RE Report ID: [id number] Reading Location: [id number] IMPRESSION: No acute intracranial findings. Grayson Frederick [facility] CT ORDERABLES Fi nal Result * (ABNORMAL) CBC with Auto Differential (09/04/2023 2:30 PM MELTER CASTER) WBC 7.43 4.00 - 12.00 10(3)/mcL 09/04/2023 2:48 PM MELTER CASTER [facility] RBC 4.29 3.80 - 5.30 10(6)/mcL 09/04/2023 2:48 PM MELTER CASTER [facility] HEMOGLOBIN (HGB) 12.3 12.0 - 15.8 g/dL 09/04/2023 2:48 PM [facility] HEMATOCRIT (HCT) 35.9(L) 36.0 - 47.0 % 09/04/2023 2:48 PM [facility] MCV 83.7 82.0 - 96.0 fL 09/04/2023 2:48 PM [facility] MCH 28.7 26.0 - 34.0 pg 09/04/2023 2:48 PM [facility] MCHC 34.3 31.0 - 36.0 g/dL 09/04/2023 2:48 PM [facility] PLATELET COUNT 362 140 - 440 10(3)/mcL 09/04/2023 2:48 PM [facility] RDW 12.5 11.8 - 15.5 % 09/04/2023 2:48 PM [facility] MPV 8.4(L) 9.7 - 12.4 fL 09/04/2023 2:48 PM [facility] NEUTROPHILS 66.0 47.0 - 73.0 % 09/04/2023 2:48 PM [facility] LYMPHOCYTES 24.1 18.0 - 42.0 % 09/04/2023 2:48 PM [facility] MONOCYTES 6.6 4.0 - 12.0 % 09/04/2023 2:48 PM [facility] EOSINOPHILS 2.6 0.0 - 5.0 % 09/04/2023 2:48 PM [facility] BASOPHILS 0.7 0.0 - 1.0 % 09/04/2023 2:48 PM [facility] ABSOLUTE NEUTROPHILS 4.91 1.60 - 7.70 10(3)/mcL 09/04/2023 2:48 PM [facility] ABSOLUTE LYMPHOCYTES 1.79 1.30 - 3.20 10(3)/mcL 09/04/2023 2:48 PM [facility] ABSOLUTE MONOCYTES 0.49 0.20 - 1.00 10(3)/mcL 09/04/2023 2:48 PM MELTER CASTER [facility] ABSOLUTE EOSINOPHIL 0.19 0.00 - 0.40 10(3)/mcL 09/04/2023 2:48 PM MELTER CASTER [facility] ABSOLUTE BASOPHILS 0.05 0.00 - 0.10 10(3)/mcL 09/04/2023 2:48 PM MELTER CASTER [facility] NRBC PER 100 WBC 0 09/04/19 24 2:48 PM MELTER CASTER [facility] Blood Venipuncture / Unknown 09/04/2023 2:30 PM [facility]STER 09/04/2023 2:45 PM MELTER CASTER Grayson Frederick PAC HEMATOLOGY ORDERABLE S Final Result Performing Organization Address City/[facility]/ZIP Co de Phone Number [facility] [place] [address] * Magnesium (09/04/2023 2:30 PM MELTER CASTER) Pathologist [facility] MAGNESIUM 1.7 1.6 - 2.6 mg/dL 09/04/2023 3:10 PM [facility] Blood Venipuncture / Unknown 09/04/2023 2:30 PM M[facility]STER 09/04/2023 2:45 PM M[facility]TER CASTER Grayson Frederick PAC CHEMISTRY ORDERABLES Final Result [facility] [place] [address] * (ABNORMAL) CMP (09/04/2023 2:30 PM MELTER CASTER) SODIUM 140 136 - 145 mmol/L 09/04/2023 3:10 PM [facility] POTASSIUM 2.9(L) 3.5 - 5.1 mmol/L 09/04/2023 3:10 PM [facility] CHLORIDE 104 98 - 107 mmol/L 09/04/2023 3:10 PM [facility] CO2, VENOUS 24 22 - 30 mmol/L 09/04/2023 3:10 PM [facility] ANION GAP 14.9 <18.0 mmol/L 09/04/2023 3:10 PM [facility] GLUCOSE 127(H) 70 - 99 mg/dL 09/04/2023 3:10 PM [facility] BUN 12 5 - 18 mg/dL 09/04/2023 3:10 PM [facility] CREATININE, BLOOD 1.11(H) 0.60 - 1.00 mg/dL 09/04/2023 3:10 PM [facility] BUN/CREATININE RATIO 11(L) 12 - 20 ratio 09/04/2023 3:10 PM [facility] TOTAL PROTEIN 7.0 6.3 - 8.2 g/dL 09/04/2023 3:10 PM [facility] ALBUMIN 4.0 3.5 - 5.0 g/dL 09/04/2023 3:10 PM [facility] A/G RATIO 1.3 1.0 - 2.2 09/04/2023 3:10 PM [facility] CALCIUM 9.4 8.7 - 10.5 mg/dL 09/04/2023 3:10 PM [facility] T BILI 0.2 0.2 - 1.2 mg/dL 09/04/2023 3:10 PM [facility] SGOT (AST) 17 5 - 34 U/L 09/04/2023 3:10 PM [facility] SGPT (ALT) 23 0 - 55 U/L 09/04/2023 3:10 PM [facility] ALKALINE PHOSPHATASE 84 40 - 150 U/L 09/04/2023 3:10 PM [facility] GFR, ESTIMATED >60 >=60 09/04/2023 3:10 PM [facility] Comment: Creatinine Clearance is the preferred criteria for selecting drug dose adjustments in renally impaired patients. ??The GFR is provided as additional pertinent clinical information. GFR is reported in mL/min/1.73 sq m. Calculation based on the Chronic Kidney Disease Epidemiology Collaboration (CKD- EPI) equation refit without adjustment for race. GFR, EST. >60 >=60 024 3:10 PM MELTER CASTER [facility] GFR, EST. NONAFRICAN 52(L) >=60 09/04/2023 3:10 PM MELTER CASTER [facility] Blood Venipuncture / Unknown 09/04/2023 2:30 PM [facility]TER CASTER 09/04/2023 2:45 PM MELTER CASTER us Grayson Frederick PAC CHEMISTRY ORDERABLES Final Result [facility] [place] [address] documented in this encounter Visit Diagnoses Diagnosis Headache- Primary Hypokalemia Hypopotassemia documented in this encounter Administered Medications Inactive Administered Medications - up to 3 most recent administrations Medication Order MAR Action Action Date Dose Rate Site 0.9 % sodium chloride solution at 999 mL/hr, Intravenous, ONCE, 1 dose, On Thu09/04/23 at 1530 New Bag 09/04/2023 2:54 PM MELTER CASTER 999 mL 999 mL/hr dexamethasone (DECADRON) injection 10 mg 10 mg, Intravenous, ONCE, 1 dose, On Thu09/04/23 at 1530 Given 09/04/2023 2:54 PM [facility]TER [facility]STER 10 mg ketorolac (TORADOL) injection 15 mg 15 mg, Intravenous, ONCE, 1 dose, On Thu09/04/23 at 1530 Given 09/04/2023 2:54 PM [facility]ELTER [facility]STER 15 mg magnesium oxide (MAG-OX) tablet 800 mg 800 mg, Oral, ONCE, 1 dose, On Thu09/04/23 at 1530 Given 09/04/2023 2:54 PM MELTER CASTER 800 mg metoclopramide (REGLAN) tablet 10 mg 10 mg, Oral, ONCE, 1 dose, On Thu09/04/23 at 1530 Given 09/04/2023 2:54 PM MELTER CASTER 10 mg potassium chloride SA (KLORCON M) tablet 40 mEq 40 mEq, Oral, ONCE, 1 dose, On Thu09/04/23 at 1530, Do Not Crush Given 09/04/2023 3:17 PM MELTER CASTER 40 mEq documented in this encounter Active and Recently Administered Medications Times are shown in [facility]. Scheduled Medication Order 09/02/2023 09/03/2023 09/04/2023 0.9 % sodium chloride solution (COMPLETED) at 999 mL/hr, Intravenous, ONCE, 1 dose, On Thu09/04/23 at 1530 1454 (New Bag - Prov ider: Mei Newsome RN)1545 (Stopped - Provider: Mei Newsome RN) dexamethasone (DECADRON) injection 10 mg (COMPLETED) 10 mg, Intravenous, ONCE, 1 dose, On Thu09/04/23 at 1530 1454 (Given - Provid er: Mei Newsome RN) ketorolac (TORADOL) injection 15 mg (COMPLETED) 15 mg, Intravenous, ONCE, 1 dose, On Thu09/04/23 at 1530 1454 (Given - Provid er: Mei Newsome RN) magnesium oxide (MAG-OX) tablet 800 mg (COMPLETED) 800 mg, Oral, ONCE, 1 dose, On Thu09/04/23 at 1530 1454 (Given - Provid er: Mei Newsome RN) metoclopramide (REGLAN) tablet 10 mg (COMPLETED) 10 mg, Oral, ONCE, 1 dose, On Thu09/04/23 at 1530 1454 (Given - Provid er: Mei Newsome RN) potassium chloride SA (KLORCON M) tablet 40 mEq (COMPLETED) 40 mEq, Oral, ONCE, 1 dose, On Thu09/04/23 at 1530, Do Not Crush 1517 (Given - Provid er: Mei Newsome RN) documented in this encounter Care Teams Hot Mill Operator Relationship Specialty Start Date End Date Lona Randhawa MD [facility] [place] [address] PCP - General Catcher Filter Tip 09/04/23 documented as of this encounter
--- OUTSIDE RECORDS SUMMARY | 2024-07-08 03:46 | XMS_ITS | Encounter Summary ---
Author Organization [facility] Healthcare Address [address] [place] [address] Care Team Providers Care Purchasing Manager/Sales Name Role Phone Glenn Lambert MD Unavailable [phone] Tiffanie Randall NP Primary Care Provider [phone] Reason for Visit * Reason Comments Cough Entered automaticall y based on patient selection in [employer]. 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 Laurie M Delmar 06/29/2024 E-Visit Submission Subjective/Objective: Laurie Jacobsen contacted the office today via e-visit for Cough. The patient-submitted questionnaire was assessed for pertinent information and the patient's problem list, medication list, and allergies were reviewed as part of the e-visit. The chart was updated to identify any changes in these areas. Assessment: Diagnosis Plan 1. Flu-like symptoms 2. Exposure to influenza Plan: The patient was given information regarding any new medication(s) prescribed, if applicable, as well as any eonr-knu-dustopc remedies. She was given instructions regarding follow up and timeframe if symptoms worsen or don???t improve. These instructions were included in the [employer] message reply tothe patient. Patient Instructions were included in the message reply to patient. My total encounter time on 06/29/2024 was 5 minutes which was spent in the activities documented inthe note. New Medications Ordered This Visit oseltamivir (TAMIFLU) 75 mg capsule Sig: Take 1 capsule (75 mg total) by mouth 2 (two) times a day for 5 days Dispense: 10 capsule Refill: 0 Radha Esposito NP S SERVICE COORDINATOR documented in this encounter Plan of Treatment Not on file documented as of this encounter Visit Diagnoses Diagnosis Flu-like symptoms- Primary Exposure to influenza Contact with or exposure to other viral diseases documented in this encounter Care Teams Purchasing Manager/Sales Relationship Specialty Start Date End Date Tiffanie Randall NP [address] [place] [address] PCP - General Family Medicine 10/19/23 Glenn Lambert MD [address] [facility] [address] [place] [address] Referring Physician Obstetrics and Gynecology 11/18/21 documented as of this encounter
--- OUTSIDE RECORDS SUMMARY | 2024-07-08 03:46 | XMS_ITS | Encounter Summary ---
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
--- OUTSIDE RECORDS SUMMARY | 2024-07-08 03:46 | XMS_ITS | Referral Summary ---
Author Organization [facility] Medical Office Building [address] Address [address] [place] [address] Care Team Providers Care Mobile Health Vehicle Operator Name Role Phone Glenn Lambert MD Unavailable [phone] Tiffanie Randall NP Primary Care Provider [phone] Encounters Date Type Department Care Team Description 06/29/2024 10:20 AM ONCOLOGY PHYSICIAN ASSISTANT E-Visit [facility] Medical Group Virtual Care [address] [place] [phone] Radha Esposito NP Your Medications 06/29/2024 Patient Self-Triage [facility] [address] [place] [address] Mychart, Generic Provider from Last 3 Months Allergies No known active allergies Medications Slynd [...] a day for 5 days 10 capsule 4 07/04/20 24 Active Problems Problem Noted Date Diagnosed [...] (04/28/2022): Added automatically from request for surgery [id number] Assessment & Plan (10/19/2023 7:50 PM CDT): [...] less than 140/90, continue current prescription medications. Immunizations Name Administration Dates Next Due Influenza LAIV (Nasal) 07/20/2023(Deferr ed: Patient Refused),07/20/2022(Deferred: Patient Refused) MMR 03/07/2021 Tdap 03/05/2021 Social History Tobacco Use Types Packs/Day Years [...] on file Legal Sex Female 2:08 PM ONCOLOGY PHYSICIAN ASSISTANT Gender Identity Not on file Sexual Orientation [...] 01/20/2024 3:25 PM CDT Plan of Treatment Not on file Procedures Procedure Name Priority Date/Time Associated Diagnosis [...] MICROBIOLOGY - GENERAL ORDER IVANNA Final Result [facility] [id number] [address] Department [place] [employer] [place] [address] from Last 3 Months or Most Recently Relevant to Health Maintenance Insurance [facility] CHOICE PLUS [facility] CHOICE PLUS Care Teams Mobile Health Vehicle Operator Relationship Specialty Start Date End Date Tiffanie Randall NP [address] [place], [place] [phone] PCP - General Family Medicine 10/19/23 Glenn Lambert MD [address] [place], [place] [id number] Referring Physician Obstetrics and Gynecology 11/18/21
--- OUTSIDE RECORDS SUMMARY | 2024-07-08 03:46 | XMS_ITS | Encounter Summary ---
Author Organization [facility] Healthcare Address [address] [place] [address] Care Team Providers Care Database Administration Manager Name Role Phone Glenn Lambert MD Unavailable Tiffanie Randall NP Primary Care Provider [phone] Encounter Details Date Type Department Care Team (Late st Contact Info) Description 11/18/2023 8:[address] 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 Gender Identity Not on file Sexual Orientation Not on file documented as of this encounter Plan of Treatment Not on file documented as of this encounter Results * TSH (11/18/2023 8:11 AM CDT) Pathologist [facility] Thyroid Stimulating Hormone 0.93 0.30 - 4.20 mcIUnit/mL Blood (Blood, Venous) 11/18/2023 8:11 AM CDT 11/18/2023 1:54 PM CDT Narrative [facility] - 11/18/2023 2:54 PM CDT Fax results to [phone] julito ochoa aprn Julito Ochoa [facility] BLOOD ORDERABLES Fin al Result Performing Organization Address [facility] Phone Number [facility] [phone] [address] Department [place] [address] * (ABNORMAL) CBC with auto differential (11/18/2023 8:11 AM CDT) [facility] WBC 7.6 3.8 - 9.9 K/cumm Hgb 13.0 11.9 - 15.5 g/dL [facility] Hct 40.2 35.6 - 45.5 % [facility] Plt 387 150 - 400 K/cumm [facility] MPV 8.9(L) 9.1 - 12.3 fL [facility] RBC 4.49 3.90 - 5.20 M/cumm [facility] MCV 89.5 81.3 - 96.4 fL [facility] MCH 29.0 27.1 - 33.3 pg [facility] MCHC 32.3 32.3 - 35.7 g/dL [facility] RDW CV 12.9 11.1 - 14.9 % [facility] RDW SD 42.2 35.7 - 48.1 fL [facility] NRBC abs 0.00 0.00 - 0.01 K/cumm [facility] Blood 11/18/2023 8:11 AM CDT 11/18/2023 1:54 PM CDT Narrative [facility] - 11/18/2023 2:38 PM CDT Fax results to [phone] julito ochoa aprn Julito Ochoa [facility] BLOOD ORDERABLES Fin al Result [facility] [id number] [address] Department of Laboratories [place], [place] [id number] documented in this encounter Visit Diagnoses Diagnosis Melena- Primary Blood in stool Abdominal pain Abdominal pain, unspecified site Mixed hyperlipidemia Primary hypertension Unspecified essential hypertension Moderate episode of recurrent major depressive disorder (HCC) Morbid obesity due to excess calories (HCC) Melena Blood in stool Abdominal pain Abdominal pain, unspecified site documented in this encounter Care Teams Database Administration Manager Relationship Specialty Start Date End Date Tiffanie Randall NP [address] [place] [address] PCP - General Family Medicine 10/19/23 Glenn Lambert MD [address] [place] [address] Referring Physician Obstetrics and Gynecology 11/18/21 documented as of this encounter
--- OUTSIDE RECORDS SUMMARY | 2024-07-08 03:46 | XMS_ITS | Encounter Summary ---
Author Organization [facility] Address [address] [place] [address] Care Team Providers Care Neurosurgery Spine Physician Name Role Phone Glenn Lambert MD Unavailable [phone] Tiffanie Randall NP Primary Care Provider [phone] Reason for Referral * Consultation (Routine) - Authorized Specialty Diagnoses / Procedures Referred By Contac t Referred To Contact Neurology Diagnoses New daily persistent headache Chronic migraine without aura without status migrainosus, not intractable Tiffanie Randall NP Phone: tel: fax: Chandler Wood MD [address] [place] [address] Phone: tel: fax: Referral ID Status Reason Start Date Expiration Date Visits Requested Visits Authorized [id number] Authorized Specialty Services Required 01/20/2024 02/18/2025 1 1 Question Answer Please select the performing region: [facility] [[id number]] Please select the performing department: [facility] [[id number]] To provider: HCANDLER WOOD [[id number]] # of visits: 1 Reason for Visit * Reason Comments Headache Pt is c/o chronic he adaches. Started about 6 months ago. 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 [employer] Gender Identity Not on file Sexual Orientation Not on file documented as of this encounter Last Filed Vital Signs Vital Sign Reading Time Taken Comments Blood Pressure 122/86 01/20/2024 3:25 PM CDT Pulse 92 01/20/2024 3:25 PM CDT Temperature 36.7 ??C (98.1 ??F) 01/20/2024 3:25 PM CD T Respiratory Rate - - Oxygen Saturation 98% 01/20/2024 3:25 PM CDT Inhaled Oxygen Concentration - - Weight 99.5 kg (219 lb 4.8 oz) 01/20/2024 3:25 P M CDT Height 167.6 cm (5' 6 ) 01/20/2024 3:25 PM CDT Body Mass Index 35.4 01/20/2024 3:25 PM CDT documented in this encounter Patient Instructions * Patient Instructions* Tiffanie Randall NP - 01/20/2024 3:30 PM CDT My medical transport specialist and I are thankful you have trusted us with your care, and hope that you received EXCELLENT care ! Please do not hesitate to call if you have any questions or concerns at documented in this encounter Ordered Prescriptions Prescription Sig Dispense Quantity Refills Last Filled Start Date End Date rizatriptan (MAXALT) 10 mg tabletIndications: Migraine Take 1 tablet (10 mg total) by mouth once as needed for migraine May repeat in 2 hours if unresolved. Do not exceed 30 mg in 24 hours. 20 tablet 1 01/20/2024 topiramate (TOPAMAX) 25 mg tablet Take 1 tablet (25 mg total) by mouth nightly for 14 days, THEN 2 tablets (50 mg total) nightly. 180 tablet 01/20/2024 documented in this encounter Progress Notes * Tiffanie Randall NP - 01/20/2024 3:30 PM CDT Images from the original note were not included. Chief Complaint Patient presents with Headache Pt is c/o chronic headaches. Started about 6 months ago. Assessment/Plan Diagnoses and all orders for this visit: New daily persistent headache (Primary) Assessment & Plan: Medications as ordered. Refer to neurology. Orders: - Ambulatory referral to Neurology; Future Chronic migraine without aura without status migrainosus, not intractable Assessment & Plan: Will start topamax 25mg at bedtime for 2 weeks. If tolerated or needed, then increase to 50mg at bedtime for prevention. Use maxalt prn for migraine headaches. Discussed how to use medication. F/u 6-8 weeks for recheck. Orders: - Ambulatory referral to Neurology; Future Other orders - topiramate (TOPAMAX) 25 mg tablet; Take 1 tablet (25 mg total) by mouth nightly for 14 days, THEN2 tablets (50 mg total) nightly. - rizatriptan (MAXALT) 10 mg tablet; Take 1 tablet (10 mg total) by mouth once as needed for migraine May repeat in 2 hours if unresolved. Do not exceed 30 mg in 24 hours. Return for Next scheduled. History of Presenting Illness Migraine This is a new problem. Episode onset: since August. The problem occurs daily. The problem has been gradually worsening. The pain is located in the Right unilateral and frontal (can be left unilateral. -) region. The pain does not radiate. The pain quality is similar to prior headaches. The quality of the pain is described as throbbing (pressure). The pain is at a severity of 3/10. The pain is severe (can get more severe - last weekend got severe 7-8/10). Associated symptoms include blurred vision, nausea, phonophobia, photophobia and a visual change. Pertinent negatives include no vomiting.The symptoms are aggravated by bright light (stress). She has tried NSAIDs (800mg twice daily - almost every day) for the symptoms. The treatment provided moderate (makes it not hurt , always feels a pressure) relief. Subjective: Laurie Jacobsen is a 48 y.o. female. Patient is being seen today for Headache (Pt is c/o chronic headaches. Started about 6 months ago.) . She went to the ER last August at [facility] and she had low potassium and they gave her fluids and she was okay. But since then she has continued having a headache. Having daily headaches. The last couple of weeks it has been only on the left side, but then travels to the right side. Today a headache woke her up at 3am. Has had history of migraines - about 7 years ago. Took imitrex at that time. Haven't had any issuesuntil recently. Review of Systems Eyes: Positive for blurred vision and photophobia. Gastrointestinal: Positive for nausea. Negative for vomiting. Physical Exam Constitutional: General: She is not in acute distress. Appearance: She is well-developed. HENT: Head: Normocephalic. Right Ear: Tympanic membrane, ear canal and external ear normal. Left Ear: Tympanic membrane, ear canal and external ear normal. Mouth/Throat: Pharynx: No oropharyngeal exudate or posterior oropharyngeal erythema. Eyes: General: No visual field deficit. Conjunctiva/sclera: Conjunctivae normal. Neck: Thyroid: No thyromegaly. Trachea: No tracheal deviation. Cardiovascular: Rate and Rhythm: Normal rate and regular rhythm. Heart sounds: Normal heart sounds. No murmur heard. No friction rub. Pulmonary: Effort: Pulmonary effort is normal. No respiratory distress. Breath sounds: Normal breath sounds. No wheezing or rales. Musculoskeletal: Cervical back: Neck supple. Right lower leg: No edema. Left lower leg: No edema. Lymphadenopathy: Cervical: No cervical adenopathy. Skin: General: Skin is warm and dry. Neurological: Mental Status: She is alert and oriented to person, place, and time. Cranial Nerves: No cranial nerve deficit or facial asymmetry. Motor: No weakness. Coordination: Coordination normal. Gait: Gait is intact. Psychiatric: Mood and Affect: Mood normal. Behavior: Behavior normal. Thought Content: Thought content normal. Judgment: Judgment normal. Current Outpatient Medications: ALPRAZolam (XANAX) 0.25 mg tablet, , Disp: , Rfl: amLODIPine (NORVASC) 5 mg tablet, Take 1 tablet (5 mg total) by mouth nightly, Disp: 90 tablet, Rfl: 1 buPROPion XL (WELLBUTRIN XL) 300 mg 24 hr tablet, Take 1 tablet every day by oral route in the morning for 30 days., Disp: , Rfl: FLUoxetine (PROzac) 60 mg tablet, , Disp: , Rfl: Slynd tablet tablet, , Disp: , Rfl: Vyvanse 60 mg capsule, , Disp: , Rfl: rizatriptan (MAXALT) 10 mg tablet, Take 1 tablet (10 mg total) by mouth once as needed for migraineMay repeat in 2 hours if unresolved. Do not exceed 30 mg in 24 hours., Disp: 20 tablet, Rfl: 1 topiramate (TOPAMAX) 25 mg tablet, Take 1 tablet (25 mg total) by mouth nightly for 14 days, THEN 2tablets (50 mg total) nightly., Disp: 180 tablet, Rfl: 0 BP 122/86 (BP Location: Right arm, Patient Position: Sitting) Pulse 92 Temp 36.7 ??C (98.1 ??F)(Oral) Ht 167.6 cm (5' 6 ) Wt 99.5 kg (219 lb 4.8 oz) SpO2 98% BMI 35.40 kg/m?? Tiffanie Randall NP documented in this encounter Miscellaneous Notes * Assessment & Plan Note - Tiffanie Randall NP - 01/22/2024 2:18 PM CDTAssociated Problem(s): New daily persistent headache Medications as ordered. Refer to neurology. * Assessment & Plan Note - Tiffanie Randall NP - 01/22/2024 2:17 PM CDTAssociated Problem(s): Chronic migraine without aura without status migrainosus, not intractable Will start topamax 25mg at bedtime for 2 weeks. If tolerated or needed, then increase to 50mg at bedtime for prevention. Use maxalt prn for migraine headaches. Discussed how to use medication. F/u 6-8 weeks for recheck. documented in this encounter Plan of Treatment Scheduled Referrals Name Type Priority Associated Diagnoses Orde r Schedule Ambulatory referral to Neurology Outpatient Referral Routine New daily persistent headache Chronic migraine without aura without status migrainosus, not intractable Expected: 02/03/2024 (Approximate), Expires: 01/19/2025 documented as of this encounter Visit Diagnoses Diagnosis New daily persistent headache- Primary Chronic migraine without aura without status migrainosus, not intractable documented in this encounter Historical Medications * This list may reflect changes made after this encounter. buPROPion XL (WELLBUTRIN XL) 300 mg 24 hr tablet Take 1 tablet every day by oral route in the morning for 30 days. added in this encounter Care Teams Neurosurgery Spine Physician Relationship Specialty Start Date End Date Tiffanie Randall NP [address] [address] PCP - General Family Medicine 10/19/23 Glenn Lambert MD [address] [address] Referring Physician Obstetrics and Gynecology 11/18/21 documented as of this encounter
--- OUTSIDE RECORDS SUMMARY | 2024-07-08 03:47 | XMS_ITS | Encounter Summary ---
Author Organization [facility] Address [address] [place] [address] Phone Care Team Providers Care Hot Iron Worker Name Role Phone Glenn Lambert MD Unavailable [phone] Lona Randhawa MD Primary Care Provider [phone] Encounter Details Date Type Department Care Team (Late st Contact Info) Description 05/27/2022 7:15 AM PUBLIC SERVICE OFFICER Telemedicine [facility] Pain Management [address] [facility] [address] [place] [address] [place] [id number] Kajal Elizabeth, PhD [address] [place] [address] Morbid obesity (CMS/HCC) (HCC) (Primary Dx); Other specified anxiety disorders; Other specified depressive episodes Social History Tobacco Use Types Packs/Day Years [...] points, staff should administer the PHQ-9) 0 11/18/2021 Comments Unknown Sex and Gender Information Value Date Recorded Sex Assigned at Not on file Legal Sex Female 2:08 PM PUBLIC SERVICE OFFICER Gender Identity Not on file Sexual Orientation Not on file documented as of this encounter Progress Notes * Kajal Elizabeth, PhD - 05/27/2022 7:15 AM CST Psychological Assessment Prior to Weight Loss Surgery Date of Service: 05/27/22 Start Diagnostic Interview time: 7:15am End Diagnostic Interview time: 7:40am MMPI-2 RF administration time: completed remotely prior to the interview This was a telemedicine visit with Laurie Jacobsen alone which took place via real-time video connection with [employer]. During the visit, I was located in the office and the patient was located at home in the [facility]. The patient visit started at 7:15am and ended at 7:40am. The patient has been informed that the visit may not be secure and acknowledged the information. I have explained the option of participating in a telephone or video visit during the COVID-19 public health emergency to the patient. After being given an opportunity to ask questions about and discuss this type of visit, the patient verbally consented to proceeding with the telephone/video visit.The patient understands that this service replaces an office visit and they may be billed and/or responsible for any applicable copayments. Reasons for seeking treatment Laurie Jacobsen is seeking weight loss surgery in order to improve her health and quality of life. She has been diagnosed with hypertension, hypercholesterolemia, and sleep apnea. She also has problems with chronic pain in her lower back that is exacerbated by her morbid obesity. In addition, weight loss with the assistance of surgery has been recommended to her by her primary physician. Laurie Jacobsen is generally hopeful that weight loss with the assistance of surgery will help to increase her healthy life expectancy. Weight history Laurie Jacobsen reported that she was in a generally healthy weight range until around 28 years of age. she began to gain excess weight at around 28 years of age due to emotional eating. She reports a cycle of losing and gaining weight. Laurie Jacobsen has made several attempts to lose weight, through keto, Weight Watchers, a low carbohydrate diet, a medically-supervised weight loss program alongwith prescription appetite suppressant medications, and dieting on her own along with exercise. Shewas able to lose as much as 50 pounds with her most successful attempt, although none of her previous weight loss attempts has resulted in sustained success. Current eating and exercise habits Laurie Jacobsen currently eats 3 meals in a typical day along with 1 snack. Snacking is usually done during the day. She stated that many of her meals are large in portion size. She acknowledged thatshe is particularly drawn to sweets, carbohydrates, pastas, and sodas or other sweet drinks. She has observed that she tends to eat more when she is bored, under stress, and depressed. Laurie Jacobsen does not currently get regular exercise. Expectations for surgery Laurie Jacobsen has no unusual concerns about undergoing weight loss surgery. She has already met with the telephonic nurse to learn more about the dietary and lifestyle changes that she will need to make in order to optimize her chances for weight loss success. Psychiatric history Diagnoses and relevant symptoms: Anxiety and depression Psychiatrist: None currently, but has seen various providers in the past Psychotropic medications: Currently takes bupropion and fluoxetine, prescribed by PCP . A more recent increase in prozac has been helpful. Psychotherapy or counseling: None Hospitalizations: Never Suicide attempts: Denied Substance use history Tobacco: Nonsmoker Alcohol: special occasions, rarely Illicit drugs: none Medical history Laurie Jacobsen has been diagnosed with hypertension, hypercholesterolemia, sleep apnea, and morbidobesity. 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 Type: euthymic AFFECT Appropriateness: appropriate Intensity: normal Mobility: mobile Range: full Reactivity: reactive SPEECH: regular rate and rhythm THOUGHT PROCESS: goal-directed, logical, and sequential CONTENT OF THOUGHT: unremarkable COGNITION Orientation: alert and oriented x 3 Attention/Concentration: normal Recent memory: normal Remote memory: normal INSIGHT/JUDGMENT: good SUICIDALITY: Ideation: denied Plans: denied Intentions: denied Psychological testing Laurie Jacobsen completed the MMPI-2-RF and her results were compared to published norms for femaleweight loss surgery candidates. SYNOPSIS OF TEST RESULTS Laurie Jacobsen produced a valid and interpretable protocol. Her scores on the substantive scales are thus likely to provide an accurate portrayal of her psychological functioning. PROTOCOL VALIDITY Unscoreable Responses Laurie Jacobsen answered at least 90% of the items on all of the scales. Inconsistent Responding Scales in this category with elevated scores: None of these scores were elevated. Over-Reporting Scales in this category with elevated scores: FBS-r. Under-Reporting Scales in this category with elevated scores: None of these scores were elevated. SUBSTANTIVE SCALES Higher-Order and Restructured Clinical (RC) Scales Scales in this category with elevated scores: None of these scores were elevated. Somatic/Cognitive and Internalizing Scales Scales in this category with elevated scores: Gastrointestinal Complaints and Stress/Worry. Externalizing, Interpersonal, and Interest Scales Scales in this category with elevated scores: None of these scores were elevated. Personality Psychopathology Five (PSY-5) Scales Scales in this category with elevated scores: None of these scores were elevated. Impressions Laurie Jacobsen is a 47 y.o. female who is undergoing psychological evaluation prior to being considered as a candidate for weight loss surgery. She has been prepping for this for 2 years. Favorable factors include: She has made several serious attempts to lose weight, some with significant success, but none with sustained success. She has ample family and social support for her decision to pursue weight loss surgery. Unfavorable factors include: She has a history of anxiety and depression, although her symptoms are currently well-controlled with appropriate treatment. Recommendations Based on clinical interview and psychological testing, there are no clear psychological contraindications to weight loss surgery at the present time. Recommended Bariatric Mindset. Note not shared: Patient harm This patient's allergies, medications, and problem list were noted but not managed by me as a non-medical provider. IC SERVICE OFFICER documented in this encounter Plan of Treatment Not on file documented as of this encounter Visit Diagnoses Diagnosis Morbid obesity (HCC)- Primary Morbid obesity Other specified anxiety disorders Other specified depressive episodes documented in this encounter Care Teams Hot Iron Worker Relationship Specialty Start Date End Date Lona Randhawa MD [address] [place] [address] [place] [address] PCP - General Family Medicine 04/09/22 10/18/23 Glenn Lambert MD [address] [facility] [address] [place] [id number] Referring Physician Obstetrics and Gynecology 11/18/21 documented as of this encounter
--- OUTSIDE RECORDS SUMMARY | 2024-07-08 03:47 | XMS_ITS | Encounter Summary ---
Author Organization [facility] Address [address] [place] [address] Care Team Providers Care Stagecraft Professor Name Role Phone Nella Swan DO Primary Care Provider [phone] Glenn Lambert MD Unavailable [phone] Reason for Visit * Reason Comments Annual Physical Encounter Details Date Type Department Care Team (Late st Contact Info) Description 11/18/2021 2:30 PM CDT Office Visit [facility] [address] [place] [phone] Nella Swan DO [address] [facility] [address] [address] Annual physical exam (Primary Dx); Primary hypertension; Moderate episode of recurrent major depressive disorder (HCC); Encounter for screening mammogram for malignant neoplasm of breast; Screening, anemia, deficiency, iron; Encounter for screening for other digestive system disorders; Encounter for screening examination for impaired glucose regulation and diabetes mellitus; Encounter for hepatitis C screening test for low risk patient; Encounter for lipid screening for cardiovascular disease; Screening for thyroid disorder; Screening for blood or protein in urine Social History Tobacco Use Types Packs/Day Years Used Date Smoking Tobacco: Never Smokeless Tobacco: Never PHQ-2 Answer Date Recorded PHQ-2 Total Score (If total score is 3 or more points, staff should administer the PHQ-9) 0 11/18/2021 Comments Unknown Sex and Gender Information Value Date Recorded Sex Assigned at Not on file Legal Sex Female 2:08 PM C 40A 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 [employer]IE[employer] Gender Identity Not on file Sexual Orientation Not on file documented as of this encounter Last Filed Vital Signs Vital Sign Reading Time Taken Comments Blood Pressure 115/69 11/18/2021 2:27 PM CDT Pulse 75 11/18/2021 2:27 PM CDT Temperature 36.4 ??C (97.6 ??F) 11/18/2021 2:27 PM CD T Respiratory Rate 16 11/18/2021 2:27 PM CDT Oxygen Saturation 98% 11/18/2021 2:27 PM CDT Inhaled Oxygen Concentration - - Weight 103.9 kg (229 lb) 11/18/2021 2:27 PM CDT Height 168.7 cm (5' 6.42 ) 11/18/2021 2:27 PM CD T Body Mass Index 36.5 11/18/2021 2:27 PM CDT documented in this encounter Patient Instructions * Patient Instructions* Nella Swan, DO - 11/18/2021 2:30 PM CDT Images from the original note were not included. Patient Education Wellness Visit for Adults DIRECTOR OF DISTANCE LEARNING: A wellness visit is when you see your healthcare provider to get screened for health problems. Yourhealthcare provider will also give you advice on how to stay healthy. Write down your questions so you remember to ask them. Ask your healthcare provider how often you should have a wellness visit. What happens at a wellness visit: Your healthcare provider will ask about your health, and your family history of health problems. This includes high blood pressure, heart disease, and cancer. He or she will ask if you have symptoms that concern you, if you smoke, and about your mood. You may also be asked about your intake of medicines, supplements, food, and alcohol. Any of the following may bedone: ?? Your weight will be checked. Your height may also be checked so your body mass index (BMI) can be calculated. Your BMI shows if you are at a healthy weight. ?? Your blood pressure and heart rate will be checked. Your temperature may also be checked. ?? Blood and urine tests may be done. Blood tests may be done to check your cholesterol levels. Abnormal cholesterol levels increase your risk for heart disease and stroke. You may also need a blood or urine test to check for diabetes if you are at increased risk. Urine tests may be done to look for signs of an infection or kidney disease. ?? A physical exam includes checking your heartbeat and lungs with a stethoscope. Your healthcare provider may also check your skin to look for sun damage. ?? Screening tests may be recommended. A screening test is done to check for diseases that may not cause symptoms. The screening tests you may need depend on your age, gender, family history, and lifestyle habits. For example, colorectal screening may be recommended if you are 50 years old or older. Screening tests you need if you are a woman: ?? A Pap smear is used to screen for cervical cancer. Pap smears are usually done every 3 to 5 years depending on your age. You may need them more often if you have had abnormal Pap smear test results in the past. Ask your healthcare provider how often you should have a Pap smear. ?? A mammogram is an x-ray of your breasts to screen for breast cancer. Experts recommend mammograms every 2 years starting at age 50 years. You may need a mammogram at age 49 years or younger if youhave an increased risk for breast cancer. Talk to your healthcare provider about when you should start having mammograms and how often you need them. Vaccines you may need: ?? Get an influenza vaccine every year. The influenza vaccine protects you from the flu. Several types of viruses cause the flu. The viruses ticket dispenser changer time, so new vaccines are made each year. ?? Get a tetanus-diphtheria (Td) booster vaccine every 10 years. This vaccine protects you against tetanus and diphtheria. Tetanus is a severe infection that may cause painful muscle spasms and lockjaw. Diphtheria is a severe bacterial infection that causes a thick covering in the back of your mouth and throat. ?? Get a human papillomavirus (HPV) vaccine if you are female and aged 19 to 26 or male 19 to 21 and never received it. This vaccine protects you from HPV infection. HPV is the most common infection spread by sexual contact. HPV may also cause vaginal, penile, and anal cancers. ?? Get a pneumococcal vaccine if you are aged 65 years or older. The pneumococcal vaccine is an injection given to protect you from pneumococcal disease. Pneumococcal disease is an infection caused by pneumococcal bacteria. The infection may cause pneumonia, meningitis, or an ear infection. ?? Get a shingles vaccine if you are aged 60 or older, even if you have had shingles before. The shingles vaccine is an injection to protect you from the varicella-zoster virus. This is the same virus that causes chickenpox. Shingles is a painful rash that develops in people who had chickenpox or have been exposed to the virus. How to eat healthy: My Plate is a model for planning healthy meals. It shows the types and amounts of foods that should go on your plate. Fruits and vegetables make up about half of your plate, and grains and protein make up the other half. A serving of dairy is included on the side of your plate. The amount of calories and serving sizes you need depends on your age, gender, weight, and height. Ex amples of healthy foods are listed below: ?? Eat a variety of vegetables such as dark green, red, and orange vegetables. You can also includecanned vegetables low in sodium (salt) and frozen vegetables without added butter or sauces. ?? Eat a variety of fresh fruits , canned fruit in 100% juice, frozen fruit, and dried fruit. ?? Include whole grains. At least half of the grains you eat should be whole grains. Examples include whole-wheat bread, wheat pasta, brown rice, and whole- grain cereals such as oatmeal. ?? Eat a variety of protein foods such as seafood (fish and shellfish), lean meat, and poultry without skin (turkey and chicken). Examples of lean meats include pork leg, shoulder, or tenderloin, andbeef round, sirloin, tenderloin, and extra lean ground beef. Other protein foods include eggs and egg substitutes, beans, peas, soy products, nuts, and seeds. ?? Choose low-fat dairy products such as skim or 1% milk or low-fat yogurt, cheese, and cottage cheese. ?? Limit unhealthy fats such as butter, hard margarine, and shortening. Exercise: Exercise at least 30 minutes per day on most days of the week. Some examples of exercise include walking, biking, dancing, and swimming. You can also fit in more physical activity by takingthe stairs instead of the elevator or parking farther away from stores. Include muscle strengthening activities 2 days each week. Regular exercise provides many health benefits. It helps you manage your weight, and decreases your risk for type 2 diabetes, heart disease, stroke, and high blood pressure. Exercise can also help improve your mood. Ask your healthcare provider about the best exercise plan for you. General health and safety guidelines: ?? Do not smoke. Nicotine and other chemicals in cigarettes and cigars can cause lung damage. Ask your healthcare provider for information if you currently smoke and need help to quit. E-cigarettes or smokeless tobacco still contain nicotine. Talk to your healthcare provider before you use these products. ?? Limit alcohol. A drink of alcohol is 12 ounces of beer, 5 ounces of wine, or 1?? ounces of liquor. ?? Lose weight, if needed. Being overweight increases your risk of certain health conditions. Theseinclude heart disease, high blood pressure, type 2 diabetes, and certain types of cancer. ?? Protect your skin. Do not sunbathe or use tanning beds. Use sunscreen with a SPF 15 or higher. Apply sunscreen at least 15 minutes before you go outside. Reapply sunscreen every 2 hours. Wear protective clothing, hats, and sunglasses when you are outside. ?? Drive safely. Always wear your seatbelt. Make sure everyone in your car wears a seatbelt. A seatbelt can save your life if you are in an accident. Do not use your cell phone when you are driving. This could distract you and cause an accident. auto seat cover installer if you need to make a call or send a text message. ?? Practice safe sex. Use latex condoms if are sexually active and have more than one partner. Yourhealthcare provider may recommend screening tests for sexually transmitted infections (STIs). ?? Wear helmets, lifejackets, and protective gear. Always wear a helmet when you ride a bike or motorcycle, go skiing, or play sports that could cause a head injury. Wear protective equipment when you play sports. Wear a lifejacket when you are on a boat or doing water sports. ?? 2017 [employer] Information is for End User's use only and may not be sold, redistributed or otherwise used for commercial purposes. All illustrations and images included in CareNotes?? are the copyrighted property of [employer] or [employer]. The above information is an classroom aide only. It is not intended as medical advice for individual conditions or treatments. Talk to your doctor, nurse or pharmacist before following any medical regimen to see if it is safe and effective for you. Patient Education Breast Self Exam for Women DIRECTOR OF DISTANCE LEARNING: A breast self-exam (BSE) is a way to check your breasts for lumps and other changes. Regular BSEs can help you know how your breasts normally look and feel. Most breast lumps or changes are not cancer, but you should always have them checked by a healthcare provider. Why you should do a BSE: Breast cancer is the most common type of cancer in women. Even if you havemammograms, you may still want to do a BSE regularly. If you know how your breasts normally feel and look, it may help you know when to contact your healthcare provider. Mammograms can miss some cancers. You may find a lump during a BSE that did not show up on your mammogram. When you should do a BSE: Александр your calendar to help you remember to do BSE on a regular schedule. One easy way to remember to do a BSE is to do the exam on the same day of each month. If you have periods, you may want to do your BSE 1 week after your period ends. This is the time when your breastsmay be the least swollen, lumpy, or tender. You can do regular BSEs even if you are or have breast implants. Contact your healthcare provider if: ?? You find any lumps or changes in your breasts. ?? You have breast pain or fluid coming from your nipples. ?? You have questions or concerns about your condition or care. How to do a BSE: ?? Look at your breasts in a mirror. Look at the size and shape of each breast and nipple. Check for swelling, lumps, dimpling, scaly skin, or other skin changes. Look for nipple changes, such as a nipple that is painful or beginning to pull inward. Gently squeeze both nipples and check to see if fluid (that is not breast milk) comes out of them. If you find any of these or other breast changes, contact your healthcare provider. Check your breasts while you sit or resourcing advisor the following 3 positions: ?? Hang your arms down at your sides. ?? Raise your hands and join them behind your head. ?? Put firm pressure with your hands on your hips. Bend slightly forward while you look at your breasts in the mirror. ?? Lie down and feel your breasts. When you lie down, your breast tissue spreads out evenly over your chest. This makes it easier for you to feel for lumps and anything that may not be normal for your breasts. Do a BSE on one breast at a time. ?? Place a small pillow or towel under your left shoulder. Put your left arm behind your head. ?? Use the 3 middle fingers of your right hand. Use your fingertip pads, on the top of your fingers. Your fingertip pad is the most sensitive part of your finger. ?? Use small circles to feel your breast tissue. Use your fingertip pads to make dime-sized, overlapping circles on your breast and armpits. Use light, medium, and firm pressure. First, press lightly. Second, press with medium pressure to feel a little deeper into the breast. Last, use firm pressure to feel deep within your breast. ?? Examine your entire breast area. Examine the breast area from above the breast to below the breast where you feel only ribs. Make small circles with your fingertips, starting in the middle of yourarmpit. Make circles going up and down the breast area. Continue toward your breast and all the wayacross it. Examine the area from your armpit all the way over to the middle of your chest (breastbone). Stop at the middle of your chest. ?? Move the pillow or towel to your right shoulder, and put your right arm behind your head. Use the 3 fingertip pads of your left hand, and repeat the above steps to do a BSE on your right breast. What else you can do to check for breast problems or cancer: Some experts suggest that women 40 years of age or older should have a mammogram every year. Other experts suggest that women between the ages of 50 and 74 years old should have a mammogram every 2 years. Talk to your healthcare provider about when you should have a mammogram. Follow up with your healthcare provider as directed: Your healthcare provider can watch you and tell you if you are doing your BSE correctly. Write down your questions so you remember to ask them during your visits. ?? 2017 [employer] Information is for End User's use only and may not be sold, redistributed or otherwise used for commercial purposes. All illustrations and images included in CareNotes?? are the copyrighted property of [employer] Inc. or [employer]. The above information is an classroom aide only. It is not intended as medical advice for individual conditions or treatments. Talk to your doctor, nurse or pharmacist before following any medical regimen to see if it is safe and effective for you. Health Maintenance Topics with due status: Overdue Topic Date Due Cervical Cancer Screening-Pap and HPV Never done Regular Well Visit/Exam 18-64 Never done Breast Cancer Screening-Mammogram Never done Colon Cancer Screening-Colonoscopy Never done DTaP/Tdap/Td Vaccine Never done Thanks for coming in today! My medical assistants and I are thankful you have trusted us with your care, and hope that you received EXCELLENT care today! Please do not hesitate to call if you have any questions or concerns at [phone]. You may receive a phone call, text, MYCHART message, or e-mail asking about your care today. We would love to hear your feedback on how EXCELLENT your care wastoday! Wishing you better health, always. Dr. Swan documented in this encounter Ordered Prescriptions Prescription Sig Dispense Quantity Refills Last Filled Start Date End Date buPROPion XL (WELLBUTRIN XL) 150 mg 24 hr tabletIndications: Moderate episode of recurrent major depressive disorder (HCC) Take 1 tablet (150 mg total) by mouth every morning 90 tablet 1 11/18/2021 4 FLUoxetine (PROzac) 40 mg capsuleIndications :Moderate episode of recurrent major depressive disorder (HCC) Take 1 capsule (40 mg total) by mouth daily 90 capsule 1 11/18/2021 2 chlorthalidone 25 mg tabletIndications: Primary hypertension Take 1 tablet (25 mg total) by mouth daily 90 tablet 1 11/18/2021 4 amLODIPine (NORVASC) 5 mg tabletIndications: Primary hypertension Take 1 tablet (5 mg total) by mouth nightly 90 tablet 1 11/18/2021 4 documented in this encounter Progress Notes * Nella Swan DO - 11/18/2021 2:30 PM CDT Images from the original note were not included. Subjective/Objective Patient ID: Laurie Jacobsen is a 46 y.o. female. Chief Complaint Chief Complaint Patient presents with ??? Annual Physical HPI New patient in office today. Here for annual physical and to establish care. Patient recently relocated from [place]. She has a 9-month-old child at home. She is . She denies any medication side effects and has no complaints. Review of Systems Constitutional: Negative for fever. HENT: Negative for congestion and sore throat. Eyes: Negative for visual disturbance. Respiratory: Negative for cough and shortness of breath. Cardiovascular: Negative for chest pain, palpitations and leg swelling. Gastrointestinal: Negative for abdominal pain. Genitourinary: Negative for hematuria. Musculoskeletal: Negative for arthralgias and myalgias. Skin: Negative for rash. Neurological: Negative for dizziness, numbness and headaches. Hematological: Negative for adenopathy. Psychiatric/Behavioral: Positive for dysphoric mood. Negative for self-injury and suicidal ideas. The patient is not nervous/anxious. All other systems reviewed and are negative. Vitals: 11/18/21 1427 BP: 115/69 BP Location: Right arm Patient Position: Sitting Pulse: 75 Resp: 16 Temp: 36.4 ??C (97.6 ??F) TempSrc: Temporal SpO2: 98% Weight: 103.9 kg (229 lb) Height: 168.7 cm (5' 6.42 ) Body mass index is 36.5 kg/m??. Physical Exam Vitals and nursing note reviewed. Constitutional: Appearance: She is well-developed. Interventions: Face mask in place. HENT: Head: Normocephalic and atraumatic. Right Ear: Hearing, tympanic membrane, ear canal and external ear normal. Left Ear: Hearing, tympanic membrane, ear canal and external ear normal. Eyes: General: Lids are normal. No scleral icterus. Extraocular Movements: Extraocular movements intact. Conjunctiva/sclera: Conjunctivae normal. Neck: Thyroid: No thyromegaly. Cardiovascular: Rate and Rhythm: Normal rate and regular rhythm. Heart sounds: Normal heart sounds. No murmur heard. Pulmonary: Effort: Pulmonary effort is normal. Breath sounds: Normal breath sounds. No wheezing. Abdominal: General: Bowel sounds are normal. Palpations: Abdomen is soft. There is no mass. Tenderness: There is no abdominal tenderness. Musculoskeletal: General: Normal range of motion. Cervical back: Full passive range of motion without pain, normal range of motion and neck supple. Right lower leg: No edema. Left lower leg: No edema. Skin: General: Skin is warm and dry. Findings: No erythema or rash. Neurological: General: No focal deficit present. Mental Status: She is alert and oriented to person, place, and time. Psychiatric: Attention and Perception: Attention normal. Mood and Affect: Mood normal. Speech: Speech normal. Behavior: Behavior normal. Thought Content: Thought content normal. Thought content does not include homicidal or suicidal ideation. Thought content does not include homicidal or suicidal plan. Diagnoses and all orders for this visit: Annual physical exam (Primary) Comments: Well exam, health maintenance updated. Orders: - CBC with auto differential; Future - Comprehensive metabolic panel; Future - Hemoglobin A1c; Future - Hepatitis C antibody; Future - Lipid panel; Future - TSH reflex to free T4; Future - Urinalysis reflex to microscopic and culture Urine, clean voided; Future Primary hypertension Assessment & Plan: Blood pressure at goal of less than 140/90, continue current prescription medications. Orders: - amLODIPine (NORVASC) 5 mg tablet; Take 1 tablet (5 mg total) by mouth nightly - chlorthalidone 25 mg tablet; Take 1 tablet (25 mg total) by mouth daily Moderate episode of recurrent major depressive disorder (HCC) Assessment & Plan: Will restart patient on pre propria on XL at 150 mg once daily rather than the 300 mg once daily. Patient has been off of bupropion for over a year due to . She would like to restart the bupropion XL, as she says that the combination between bupropion and fluoxetine works well for her. Shedoes not have any suicidal ideations. Call 911 or go to nearest emergency room if you feel you willbe a harm to herself or to others. Orders: - FLUoxetine (PROzac) 40 mg capsule; Take 1 capsule (40 mg total) by mouth daily - buPROPion XL (WELLBUTRIN XL) 150 mg 24 hr tablet; Take 1 tablet (150 mg total) by mouth every morning Encounter for screening mammogram for malignant neoplasm of breast - Screening Mammogram Bilateral [place]; Future Screening, anemia, deficiency, iron - CBC with auto differential; Future Encounter for screening for other digestive system disorders - Comprehensive metabolic panel; Future Encounter for screening examination for impaired glucose regulation and diabetes mellitus - Hemoglobin A1c; Future Encounter for hepatitis C screening test for low risk patient - Hepatitis C antibody; Future Encounter for lipid screening for cardiovascular disease - Lipid panel; Future Screening for thyroid disorder - TSH reflex to free T4; Future Screening for blood or protein in urine - Urinalysis reflex to microscopic and culture Urine, clean voided; Future Nella Swan DO This note is dictated and transcribed by [employer]. Executive Coordinator variances may occur. Despite proofreading, typographical errors may occur. documented in this encounter Miscellaneous Notes * Assessment & Plan Note - Nella Swan DO - 11/18/2021 3:25 PM CDT Associated Problem(s): Moderate episode of recurrent major depressive disorder (HCC) Will restart patient on pre propria on XL at 150 mg once daily rather than the 300 mg once daily. Patient has been off of bupropion for over a year due to . She would like to restart the bupropion XL, as she says that the combination between bupropion and fluoxetine works well for her. Shedoes not have any suicidal ideations. Call 911 or go to nearest emergency room if you feel you willbe a harm to herself or to others. * Assessment & Plan Note - Nella Swan DO - 11/18/2021 3:25 PM CDT Associated Problem(s): Primary hypertension Blood pressure at goal of less than 140/90, continue current prescription medications. documented in this encounter Plan of Treatment Not on file documented as of this encounter Visit Diagnoses Diagnosis Annual physical exam- Primary Routine general medical examination at a health care facility Primary hypertension Unspecified essential hypertension Moderate episode of recurrent major depressive disorder (HCC) Encounter for screening mammogram for malignant neoplasm of breast Screening, anemia, deficiency, iron Screening for iron deficiency anemia Encounter for screening for other digestive system disorders Encounter for screening examination for impaired glucose regulation and diabetes mellitus Encounter for hepatitis C screening test for low risk patient Encounter for lipid screening for cardiovascular disease Screening for thyroid disorder Screening for blood or protein in urine Screening for unspecified condition documented in this encounter Discontinued Medications Medication Sig Discontinue Reason Start Date End Da te buPROPion XL (WELLBUTRIN XL) 300 mg 24 hr tablet bupropion HCl XL 300 mg 24 hr tablet, extended release TAKE 1 TABLET (300 MG TOTAL) BY MOUTH DAILY BEFORE BREAKFAST. Alternate therapy 11/18/2021 amLODIPine (NORVASC) 5 mg tablet Reorder 10/15/2021 11/18/2021 chlorthalidone 25 mg tablet Reorder 11/08/2021 11/18/2021 FLUoxetine (PROzac) 40 mg capsule fluoxetine 40 mg capsule TAKE 1 CAPSULE BY MOUTH EVERY DAY Reorder 11/18/2021 documented as of this encounter Historical Medications * This list may reflect changes made after this encounter. FLUoxetine (PROzac) 40 mg capsule fluoxetine 40 mg capsule TAKE 1 CAPSULE BY MOUTH EVERY DAY 2 chlorthalidone 25 mg tablet 11/08/2021 2 buPROPion XL (WELLBUTRIN XL) 300 mg 24 hr tablet bupropion HCl XL 300 mg 24 hr tablet, extended release TAKE 1 TABLET (300 MG TOTAL) BY MOUTH DAILY BEFORE BREAKFAST. 2 amLODIPine (NORVASC) 5 mg tablet 10/15/2021 2 added in this encounter Care Teams Stagecraft Professor Relationship Specialty Start Date End Date Nella Swan DO PCP - General Family Medicine 11/18/21 04/08/22 Glenn Lambert MD [address] [place] [address] Referring Physician Obstetrics and Gynecology 11/18/21 documented as of this encounter
--- OUTSIDE RECORDS SUMMARY | 2024-07-08 03:47 | XMS_ITS | Encounter Summary ---
Author Organization [facility] Address [address] [place] [address] Phone Care Team Providers Care Gis Analyst Name Role Phone Glenn Lambert MD Unavailable [phone] Lona Randhawa MD Primary Care Provider [phone] Encounter Details Date Type Department Care Team (Late st Contact Info) Description 07/15/2022 Telephone [facility] Minimally Invasive Surgery [address] [place] [address] Medical Office Building [address] [place] [address] Shayy Fuentes Social History Tobacco Use Types Packs/Day Years [...] on file Legal Sex Female 2:08 PM STEAM HAND Gender Identity Not on file Sexual Orientation Not on file documented as of this encounter Miscellaneous Notes * Telephone Encounter - Shayy Fuentes - 07/15/2022 10:12 AM STEAM HAND Patient called to cxl EGD. She will continue her Bariatric surgery through [facility]. She doesn't want to get the covid vaccine. M HAND documented in this encounter Plan of Treatment Not on file documented as of this encounter Visit Diagnoses Not on filedocumented in this encounter Care Teams Gis Analyst Relationship Specialty Start Date End Date Lona Randhawa MD [facility] [place] [address] PCP - General Family Medicine 04/09/22 10/18/23 Glenn Lambert MD [address] [id number] Referring Physician Obstetrics and Gynecology 11/18/21 documented as of this encounter
--- OUTSIDE RECORDS SUMMARY | 2024-07-08 03:47 | XMS_ITS | Encounter Summary ---
Author Organization [facility] Address [address] [place] [address] Phone Care Team Providers Care Restaurant Team Member Name Role Phone Beny Nella Mariano DO Primary Care Provider [phone] Glenn Lambert MD Unavailable [phone] Encounter Details Date Type Department Care Team (Late st Contact Info) Description 01/07/2022 Telephone [facility] Minimally Invasive Surgery [address] [place] [address] Medical Office Building [address] [place] [address] Marlyn Taylor B.A. Social History Tobacco Use Types Packs/Day Years Used Date Smoking Tobacco: Never Smokeless Tobacco: Never PHQ-2 Answer Date Recorded PHQ-2 Total Score (If total score is 3 or more points, staff should administer the PHQ-9) 0 11/18/2021 Comments Unknown Sex and Gender Information Value Date Recorded Sex Assigned at Not on file Legal Sex Female 2:08 PM COSTUMER Gender Identity Not on file Sexual Orientation Not on file documented as of this encounter Miscellaneous Notes * Telephone Encounter - Marlyn Taylor B.A. - 01/07/2022 9:24 AM CDT Called pt to verify info and to get her sched with import export clerk. Pt informed me that her new insurance does not cover. documented in this encounter Plan of Treatment Not on file documented as of this encounter Visit Diagnoses Not on filedocumented in this encounter Care Teams Restaurant Team Member Relationship Specialty Start Date End Date Nella Swan DO PCP - General Family Medicine 11/18/21 04/08/22 Glenn Lambert MD [address] [place] [address] Referring Physician Obstetrics and Gynecology 11/18/21 documented as of this encounter
--- OUTSIDE RECORDS SUMMARY | 2024-07-08 03:47 | XMS_ITS | Patient Health Record ---
Author Organization [facility] Address [address] [facility] [address] [place] [address] Care Team Providers Care Boiling Tub Operator Name Role Phone None, None Primary Care Provider UnavailMELSISA Patel Unavailable [phone] google, Thermal Nomad Unavailable Unavailable Reason For Referral No Information Medications Medication SIG (Take, Route, Frequency, Duration) Notes Start Date End Date Status Medrol 4 MG as directed Orally for 6 days 03/03/20 19 Active PROzac Active Wellbutrin Active Plan Of Treatment Pending Test Test Name Order Date Xray Shoulder minimum of 2 views 019 Insurance Providers Payer Name Payer Address Payer Phone Subscriber Number Group Number Insured Name Patient Relationship to Insured Coverage Start Date Coverage End Date [facility] [address] [address] [place] [address] [id number] Lucas Jacobsen Spouse - patient is the spouse of the insured 9 Medical (General) History Medical History History ICD Code high blood pressure, depression Surgical History Surgery Date(Month/Year) D and C 2002
--- OUTSIDE RECORDS SUMMARY | 2024-07-08 03:47 | XMS_ITS | Encounter Summary ---
Author Organization [facility] Address [address] [facility] [address] [place] [address] Phone Care Team Providers Care Paramedic Supervisor Name Role Phone Glenn Lambert MD Unavailable [phone] Lona Randhawa MD Primary Care Provider [phone] Encounter Details Date Type Department Care Team (Late st Contact Info) Description 04/11/2022 9:00 AM CDT Telemedicine [facility] Minimally Invasive Surgery [address] [place] [address] Medical Office Building [address] [place] [address] Vinicius Zheng NP [address] [facility] [phone] [place] [address] BMI 37.0-37.9, adult (Primary Dx); Primary hypertension; Obstructive sleep apnea Social History Tobacco Use Types Packs/Day Years [...] on file Legal Sex Female 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 We are here to help you navigate through our weight loss program, and on to your new healthy life. For your convenience we have recorded videos to help you understand steps to surgery. Check them out: To understand steps to surgeon, watch the Next Steps video at: [email or web address]/ To understand Insurance requirements watch Medically Supervised Weight Loss video at [email or web address] Intel[employer] [email or web address]/videos/ During your first appointment with Nurse Practitioner Vinicius Zheng referrals were placed for Nutrition, Psychology, and Physical Therapy. Please call and set up appointments. Appointments listed below can be completed in any order, prior to appointment with surgeon. When you call to make appointments, please let them know you are in the Bariatric Surgery Program. Make an appointment with one of the approved Dietitian locations below. [facility] - [phone] phone [facility] - [phone] Bariatric Dietitian Services Online only - [phone]. Make an appointment with one of the approved Physical Therapy locations below. Physical Therapy Dept. ([facility]) - [phone] - Option 1 Sports Therapy Rehab. ([facility]) - [phone] Make an appointment with one of the approved Psychologist locations below. Kajal Elizabeth, PhD ([facility]) - Mario Fields, Ph.D. ([facility]) - NOTE: If your insurance will not cover the assessment providers above, you will be responsible for payment up front. Though, we understand this can be a financial burden, our program assessment providers play a vital role in preparing you for life after surgery. Also, if your specific insurance requires additional referrals from your primary care physician, it will be your responsibility to obtain them. Within 24hrs you will be receiving a letter through [employer] innov[employer] mentor | invest, with the rest of requirements from your insurance and our program. We will also send letter to you through [employer] Mail. If you have any questions, please watch the video on our website using link above. If you still have questions send us a message through your [employer] innovate | mentor | invest Portal. The fastest and most reliable way to contact us, is through your [employer] innov[employer] | mentor | invest Portal. Messages sent through [employer] mentor | invest are attached to your individual chart, providing instant access to your chart. Voicemailis often distorted, and unreliable. documented in this encounter Progress Notes * Vinicius Zheng NP - 04/11/2022 9:00 AM CDT [facility] Metabolic & Weight Loss Surgery New Patient Consultation/ Evaluation This was a telemedicine visit with Laurie ware which took place via Real-time video connection ([employer]uch, Zoom or similar). During the visit, I was located at home and the patient was located at home in the [facility]. The patient visit started at 0853 and ended at 09. My total encounter time on 04/11/2022 was 16 minutes which was spent in the activities documented in the note. This includes time spent prior to the visit and after the visit in direct care of the patient. This time does not include time spent in any separately reportable services. Greater than 50% of the visit was spent in counseling and coordination of care. The patient: has been informed that the visit may not be secure and acknowledged the information. The option of participating in a telephone or video visit during the COVID-19 public health emergencywas explained to them. After being given an opportunity to ask questions about and discuss this type of visit, they verbally consented to proceeding with the telephone/video visit and understand thatthis service replaces an office visit. REASON FOR CONSULTATION: The patient is seen in consultation for evaluation of medical problems caused by, or seriously aggravated by, morbid obesity. REQUESTING PROVIDER: Lona Randhawa HISTORY OF PRESENT ILLNESS: The patient is a 46 y.o. female with a long history of clinically severe obesity who presents today to begin the process of comprehensive evaluation for bariatric and metabolic surgery. Multiple attempts at non-surgical weight loss have been unsuccessful, and the obesityhas caused significant medical comorbidity and reduced quality of life. The patient expresses interest in being considered for weight loss surgery as a means to improve health and overall quality of life. As such, bariatric surgery consultation has been initiated. Pt reports her weight at 229 pounds and she reports her height at 5'6 tall which gives her a BMI of 37.The excess body weight interferes with activities of daily living and negatively impacts quality of life. The patient has attempted medical weight loss in the past through the use of Weight Management Programs Program Name/Doctor: Physician/Nurse Practitioner/Physician Cash Applications Clerk Supervised WITH medication, Weight Watchers, KETO, Low Calorie diet on own, 3seventy Pal . At most the patient has lost 50 pounds at any one stretch. Her highest measured weight is 240 pounds. PAST MEDICAL HISTORY: She has a past medical history of Anemia, Anxiety, Depression (2002), Hypertension (2018), Obesity,and Sleep apnea (2018). PAST SURGICAL HISTORY: She has a past surgical history that includes section (2020) and Dilation and curettage ofuterus (2002). MEDICATIONS: She has a current medication list which includes the following prescription(s): alprazolam, amlodipine, bupropion xl, chlorthalidone, fluoxetine, glycopyrrolate, and slynd. ALLERGIES: She has No Known Allergies. FAMILY HISTORY: Her family history includes Alcohol abuse in her mother; Breast cancer in her maternal grandmother;Clotting disorder in her sister; Depression in her mother; Hypertension in her father; Lupus in hermother; Mental illness in her mother; Obesity in her father; Sleep apnea in her father. SOCIAL HISTORY: She reports that she has never smoked. She has never used smokeless tobacco. She reports that she does not use drugs. Pt does not drink alcohol. REVIEW OF SYSTEMS: The patient-completed Review of Systems was reviewed and was scanned as an attachment to this encounter. PHYSICAL EXAMINATION: BMI 37 GENERAL: Morbidly obese individual in no acute distress. NEURO: Alert and oriented x3, mood and affect appropriate. HEENT: Pupils equal. EOMs grossly normal. NECK: Supple. Trachea midline. PULMONARY: Breathing comfortably on room air. No audible wheezes. SKIN: Smooth and dry. No rashes. ABDOMEN: Gynecoid obesity. No masses. RESULTS: GERDQ score: How many days did you have a burning feeling behind your breastbone (heartburn)?: 0 How many days did you have stomach contents (liquid or food) moving upwards to your throat or mouth(regurgitation)?: 0 How many days did you have a pain in the center of the upperstomach?: 0 How many days did you have nausea?: 0 How many nights did you have difficulty getting a good night's sleep because of your heartburn and/or regurgitation?: 0 How many days did you take additional medications for your heartburn and/or regurgitation other than what the physician told you to take? (such as Tums, Rolaids, Maalox?): 0 GERDQ Total Score: 0 STOP-BANG score: STOP-Bang Questionnaire Do you snore loudly?: No Do you often feel tired or fatigued after you sleep?: Yes Has anyone ever observed you stop breathing in your sleep?: No Do you have or are you being treated for high blood pressure?: Yes Recent BMI (Calculated): 36.5 Is BMI greater than 35 kg/m2?: 1=Yes Age older than 50 years old?: 0=No Neck Circumference Greater Than (17 inches Male) or (16 inches Female): Yes Gender - Male: 0=No STOP-Bang Total Score: 4 Does the patient have renal insufficiency? no Does the patient have venous insufficiency? no Does the patient have venous stasis ulcers? no Does the patient wear compression stockings? no ASSESSMENT AND PLAN: Patient Active Problem List Diagnosis FRANCISCO (obstructive sleep apnea) Moderate episode of recurrent major depressive disorder (HCC) Primary hypertension BMI 37.0-37.9, adult Laurie Jacobsen is a pleasant 46 y.o. year old female who presents to clinic today for evaluation for possible Laparoscopic Sleeve Gastrectomy. She has a history of morbid obesity and other comorbidities listed above. Her current BMI 37 making her an excellent potential bariatric surgical candidate. She would like to have her surgery as soon as possible, and we will begin with a comprehensive evaluation: Psychological Evaluation Nutrition Evaluation Physical Therapy EKG Labs EGD (to be scheduled) Insurance approval COVID antibodies/vaccine Pt will f/u with Dr. Hickman once she has completed her requirements. Once we have obtained all of the above, we will hopefully be able to proceed with surgical planning. The patient has no barriers to education and demonstrates understanding. Finally, Laurie Jacobsen is encouraged to call the office with any questions or concerns in the meantime. Vinicius Zheng NP Nurse Practitioner Minimally Invasive Surgery Department of Surgery p: [phone] documented in this encounter Plan of Treatment Scheduled Orders Name Type Priority Associated Diagnoses Orde r Schedule CBC with auto differential Lab Routine BMI 37.0-37.9, adult Primary hypertension Obstructive sleep apnea Expected: 04/11/2022, Expires: 04/11/2023 Comprehensive metabolic panel Lab Routine BMI 37.0-37.9, adult Primary hypertension Obstructive sleep apnea Expected: 04/11/2022, Expires: 04/11/2023 Hemoglobin A1c Lab Routine BMI 37.0-37.9, adult Primary hypertension Obstructive sleep apnea Expected: 04/11/2022, Expires: 04/11/2023 TSH Lab Routine BMI 37.0-37.9, adult Primary hypertension Obstructive sleep apnea Expected: 04/11/2022, Expires: 04/11/2023 Lipid panel Lab Routine BMI 37.0-37.9, adult Primary hypertension Obstructive sleep apnea Expected: 04/11/2022, Expires: 04/11/2023 PTH Lab Routine BMI 37.0-37.9, adult Primary hypertension Obstructive sleep apnea Expected: 04/11/2022, Expires: 04/11/2023 Vitamin D 25 hydroxy Lab Routine BMI 37.0-37.9, adult Primary hypertension Obstructive sleep apnea Expected: 04/11/2022, Expires: 04/11/2023 Vitamin B12 Lab Routine BMI 37.0-37.9, adult Primary hypertension Obstructive sleep apnea Expected: 04/11/2022, Expires: 04/11/2023 Iron profile w/ IBC Lab Routine BMI 37.0-37.9, adult Primary hypertension Obstructive sleep apnea Expected: 04/11/2022, Expires: 04/11/2023 Ferritin Lab Routine BMI 37.0-37.9, adult Primary hypertension Obstructive sleep apnea Expected: 04/11/2022, Expires: 04/11/2023 H. pylori breath test Lab Routine BMI 37.0-37.9, adult Primary hypertension Obstructive sleep apnea Expected: 04/11/2022, Expires: 04/11/2023 documented as of this encounter Visit Diagnoses Diagnosis BMI 37.0-37.9, adult- Primary Primary hypertension Unspecified essential hypertension Obstructive sleep apnea Obstructive sleep apnea (adult) (pediatric) documented in this encounter Discontinued Medications Medication Sig Discontinue Reason Start Date End Da te FLUoxetine (PROzac) 40 mg capsuleIndications:Moder ate episode of recurrent major depressive disorder (HCC) Take 1 capsule (40 mg total) by mouth daily 11/18/2021 04/11/2022 documented as of this encounter Historical Medications * This list may reflect changes made after this encounter. Medication Sig Dispense Quantity Refills Last Filled Start D ate End Date ALPRAZolam (XANAX) 0.25 mg tablet 03/11/2022 FLUoxetine (PROzac) 60 mg tablet 03/11/2022 Slynd tablet tablet 03/26/2022 glycopyrrolate (ROBINUL) 1 mg tablet 03/11/202207/2023 added in this encounter Care Teams Paramedic Supervisor Relationship Specialty Start Date End Date Lona Randhawa MD [address] [place] [address] PCP - General Family Medicine 04/09/22 10/18/23 Glenn Lambret MD [address] [facility] [address] [facility] [address] [place] [address] Referring Physician Obstetrics and Gynecology 11/18/21 documented as of this encounter"
--- OUTSIDE RECORDS SUMMARY | 2024-07-08 03:47 | XMS_ITS | Encounter Summary ---
Author Organization [facility] Address [address] [place] [address] Care Team Providers Care Rubber Heel And Sole Press Tender Name Role Phone Glenn Lambert MD Unavailable [phone] Tiffanie Randall NP Primary Care Provider [phone] Reason for Visit * Reason Onset Date Comments Medical Question/Miscellaneous 10/29/2023 Encounter Details Date Type Department Care Team (Late st Contact Info) Description 10/29/2023 Telephone [facility] Primary Care at [address] [address] Tiffanie Randall NP [address] [place] [address] Medical Question/Miscellaneous Social History Tobacco Use Types Packs/Day Years [...] on file Legal Sex Female 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 See imaging tab for additional information. COOK FISHING VESSEL advised the imaging on file was ordered from another provider and done on 09/04/23. Caller understands - no additional questions. Does message need to be routed? No documented in this encounter Plan of Treatment Not on file documented as of this encounter Visit Diagnoses Not on filedocumented in this encounter Care Teams Rubber Heel And Sole Press Tender Relationship Specialty Start Date End Date Tiffanie Randall NP [address] [facility] [address] [place] [address] PCP - General Family Medicine 10/19/23 Glenn Lambert MD [address] [place] [address] Referring Physician Obstetrics and Gynecology 11/18/21 documented as of this encounter
--- OUTSIDE RECORDS SUMMARY | 2024-07-08 03:47 | XMS_ITS | Encounter Summary ---
Author Organization [facility] Address [address] [place] [address] Phone Care Team Providers Care Application Counselor Name Role Phone Glenn Lambert MD Unavailable [phone] Lona Randahwa MD Primary Care Provider [phone] Encounter Details Date Type Department Care Team (Late st Contact Info) Description 06/17/2022 Orders Only [facility] Minimally Invasive Surgery [address] [place] [address] Medical Office Building [address] [place] [address] Vinicius Zheng, KOKO [address] [facility] [phone] [place] [address] BMI 37.0-37.9, adult (Primary Dx); [...] on file Legal Sex Female 2:08 PM HEAT TREAT SUPERVISOR Gender Identity Not on file Sexual Orientation Not on file documented as of this encounter Plan of Treatment Not on file documented as of this encounter Procedures Procedure Name Priority Date/Time Associated Diagnosis Comments COPY(IES) SENT TO: Routine 06/30/2022 8: 36 AM HEAT TREAT SUPERVISOR CBC WITH AUTO DIFFERENTIAL Routine 06/30/2022 8:36 AM HEAT TREAT SUPERVISOR BMI 37.0-37.9, adult Primary hypertension Obstructive sleep apnea documented in this encounter Results * COPY(IES) SENT TO: (06/30/2022 8:36 AM HEAT TREAT SUPERVISOR) COPY(IES) SENT TO: [facility] Comment: ?[facility] ?COPY TO ACCOUNT ?[id number] ?[place] [address] 06/30/2022 8:36 AM HEAT TREAT SUPERVISOR 06/30/2022 8:37 AM HEAT TREAT SUPERVISOR us Vinicius Zheng [address] MAGISTRATE LAB BLOOD ORDERABLES Final Result [facility] * CBC with auto differential (06/30/2022 8:36 AM HEAT TREAT SUPERVISOR) WBC 8.0 3.8 - 10.8 Thousand/u L [facility] RBC, POC 4.38 3.80 - 5.10 Million/uL [facility] Hgb 12.7 11.7 - 15.5 g/dL [facility] Hct 38.4 35.0 - 45.0 % [facility] MCV 87.7 80.0 - 100.0 fL [facility] MCH 29.0 27.0 - 33.0 pg [facility] MCHC 33.1 32.0 - 36.0 g/dL [facility] Rdw 13.2 11.0 - 15.0 % [facility] Platelets 392 140 - 400 Thousand/u L [facility] MPV 9.1 7.5 - 12.5 fL [facility] Neutrophils, abs 5,712 1,500 - 7,800 cells/uL [facility] Lymphocytes, abs 1,544 850 - 3,900 cells/uL [facility] Monocyte abs 552 200 - 950 cells/uL [facility] Eosinophils, abs 144 15 - 500 cells/uL [facility] Basophils, abs 48 0 - 200 cells/uL [facility] Neutrophils 71.4 % [facility] Lymphocyte pct 19.3 % [facility] Monocytes 6.9 % [facility] Eosinophils 1.8 % [facility] Basophils 0.6 % [facility] Blood 06/30/2022 8:36 AM HEAT TREAT SUPERVISOR 06/30/2022 8:37 AM HEAT TREAT SUPERVISOR Vinicius Zheng [address] MAGISTRATE LAB BLOOD ORDERABLES Final Result [facility] [address] [place] [address] documented in this encounter Visit Diagnoses Diagnosis BMI 37.0-37.9, adult- Primary Primary hypertension Unspecified essential hypertension Obstructive sleep apnea Obstructive sleep apnea (adult) (pediatric) documented in this encounter Care Teams Application Counselor Relationship Specialty Start Date End Date Lona Randhawa MD [facility] [place] [address] PCP - General Family Medicine 04/09/22 10/18/23 Glenn Lambert MD [address] [address] Referring Physician Obstetrics and Gynecology 11/18/21 documented as of this encounter
--- OUTSIDE RECORDS SUMMARY | 2024-07-08 03:47 | XMS_ITS | Encounter Summary ---
Author Organization [facility] Address [address] [facility] [address] [place] [address] Phone Care Team Providers Care Av Specialist Name Role Phone Glenn Lambert MD Unavailable [phone] Lona Randhawa MD Primary Care Provider [phone] Reason for Visit * Reason Comments PT Initial Eval PT Treatment PT Discharge * Consultation (Routine) - Canceled Specialty Diagnoses / Procedures Referred By Contac t Referred To Contact Physical Therapy Diagnoses BMI 37.0-37.9, adult Primary hypertension Obstructive sleep apnea Vinicius Zheng, ESTHETICIAN/SPA COORDINATOR [address] [facility] [phone] [place] [address] Phone: tel: fax: [facility] (All Locations) Referral ID Status Reason Start Date Expiration Date Visits Requested Visits Authorized [id number] Canceled Specialty Services Required 04/11/2022 04/11/2023 24 24 Encounter Details Date Type Department Care Team (Late st Contact Info) Description 05/26/2022 8:00 AM DIRECTOR OF TEENAGE ACTIVITIES Therapy [facility] Physical Therapy [address] [place] [address] SonFrancis, VANESSAT [address] [facility] [address] [place] [address] BMI 37.0-37.9, adult (Primary Dx); Primary hypertension; Obstructive sleep apnea; Morbid obesity due to excess calories (HCC); Moderate episode of recurrent major depressive disorder (HCC) Social History Tobacco Use Types Packs/Day [...] on file Legal Sex Female 2:08 PM DIRECTOR OF TEENAGE ACTIVITIES Gender Identity Not on file Sexual Orientation Not on file documented as of this encounter Last Filed Vital Signs Vital Sign Reading Time Taken Comments Blood Pressure 118/78 05/26/2022 8:16 AM DIRECTOR OF TEENAGE ACTIVITIES Pulse 90 05/26/2022 8:16 AM DIRECTOR OF TEENAGE ACTIVITIES Temperature - - Respiratory Rate - - Oxygen Saturation 98% 05/26/2022 8:16 AM DIRECTOR OF TEENAGE ACTIVITIES Inhaled Oxygen Concentration - - Weight - - Height - - Body Mass Index - - documented in this encounter Progress Notes * Carla Pedraza - 05/26/2022 8:00 AM CST Physical Therapy Initial Evaluation Physical Therapy Discharge Date of Service: 05/26/2022 Referring Provider: Vinicius Zheng NP [address] [facility] [phone] [place] [address] Laurie Jacobsen 1975 47 y.o. female ICD-9-CM ICD-10-CM 1. BMI 37.0-37.9, adult V85.37 Z68.37 2. Primary hypertension 401.9 I10 3. Obstructive sleep apnea 327.23 G47.33 4. Morbid obesity due to excess calories (HCC) 278.01 E66.01 5. Moderate episode of recurrent major depressive disorder (HCC) 296.32 F33.1 Chief Complaint PT Initial Eval; PT Treatment; PT Discharge Past Medical History: Diagnosis Date Anemia Anxiety Depression 2002 Hypertension 2019 Obesity Sleep apnea 2018 Past Surgical History: Procedure Laterality Date SECTION 2020 DILATION AND CURETTAGE OF UTERUS 2002 Miscarriage Patient Active Problem List Diagnosis [place] (obstructive sleep apnea) Moderate episode of recurrent major depressive disorder (HCC) Primary hypertension BMI 37.0-37.9, adult Morbid obesity due to excess calories (HCC) Precautions: None Subjective History: Patient is seeking sleeve surgery. Falls in last 6 months: no falls / near falls Near fall frequency: None Patient reports 0 problems with balance. Pain: Yes: posterior right shoulder; / due to sleeping wrong Occupation: Working Full-time Living situation: Patient live with significant other/spouse lives with family in a House. Patient's home has 0 stairs to enter. Pt's bedroom is located on the main level Pt's primary bathroom is located on the main level Functional Limitations: Ambulation: independent Assistive device: no device Pain with household ambulation?: No Pain with community ambulation?: No Activity and Participation Restrictions: independent with all ADLs Work limitations: none Recreational activity limitations: no: Sports/Leisure activities: hiking, walking, running Exercise: The patient currently exercises Never. The patient reports understanding how to address aerobic conditioning, flexibility/stretching, strengthening, and balance. Available resources for exercise include gym access, weights at home, step/activity tracker, heart rate monitor, and Public[employer]ay. Current steps per day: 6000 Objective: Vitals: Vitals: 05/26/22 0816 BP: 118/78 Pulse: 90 SpO2: 98% Cognition: no deficits Integument: reports no skin breakdown Appearance/Obesity pattern: gynecoid Postural Deficits: No significant deficits Gross Range of Motion: Upper Extremity: WNL Lower Extremity: WNL Gross Strength: Upper Extremity: WNL Lower Extremity: WNL Floor to Stand Right leg forward: independently Left leg forward: independently Balance: Eyes Open (seconds) Eyes Closed (seconds) Feet together (narrow base) >20 seconds >20 seconds Tandem >20 seconds 20 seconds, lateral sway observed Single limb stance Right: >20 seconds Left: >20 seconds Not tested Standardized Tests: 5 times sit to stand score: 11.63 seconds Level of assist: independent RPE: 6/20 Comments: The patient completed assessment without upper extremity support. 6 Minute Walk: RPE: 6/20 Pre During 6 Minute Walk - During SPO2: 98 % HR: 93 bpm Distance Walked (feet): 1570 feet BP Post Walk: 136/84 Number of Rests During Walk: 0 Post Interventions: Treatment Provided: Treatment Done Today HEP Exercise Response Therapeutic Exercise [] [] [] [] [] [] Therapeutic Activity [x] [] Education on PT POC with plan for single session and discharge this date, patient can return with new order if indicated, therapist's card provided in case patient has additional questions [x] [x] Education on cardiovascular walking program: recommendation from AHA for 150 minutes moderate intensity exercise per week recommendation to achieve 10,000 steps per day for active lifestyle benefits of regular walking program education on determining intensity of CV walking program: education on how to track HR: smart watches, education on HR zone using HR max and/or HR reserve, education on use of Cristo RPE to determine intensity [x] [] Education on modification of exercise if limited by pain but encouragement not to discontinue exercise due to pain if at all possible [x] [] Reviewed and provided bariatric surgery exercise educational packet [x] [] Education and recommendations for postoperative physical therapy and exercise [x] [] Education on expectations for postoperative lifting precautions [] [] Education on abdominal bracing [] [] Education on strategies to prevent DVTs [x] [] Education on postoperative skin care and management including possible use of abdominal binder or girdle [x] [x] Education on exercise prescription for strengthening, flexibility/stretching, balance and coordination program initiated with handouts provided [x] [] Education on blood pressure management [] [] [] [] [] [] Continuous HR Monitoring HR Max: 126 bpm HR Average: 106 bpm Target HR Zone (60-80% HRR): 141-158 bpm Assessment/Plan: Chief Complaint PT Initial Eval; PT Treatment; PT Discharge Patient is a 47 y.o.-year-old female presenting to PT for a sleeve pre-surgical evaluation. Patientcase is complicated by multiple co-morbidities (hypertension, obesity, sleep apnea, and anemia), age, and anxiety/depression. The patient's chief complaint(s) includes the following: inability to lose weight and maintain the weight loss . Outcome Measures: Date 05/26/22 5xSTS 11.63 sec 6MWT 1570 ft Normative values on standardized outcome measures for adults aged 40-49 is as follows: 5xSTS: 6.2 seconds without upper extremity support 6MWT: average gait endurance is 526 - 696 m (1725.7 - 2283.5 ft) The patient demonstrates deficits in endurance. The patient is not currently exercising. The patient benefited today from pre- and post-surgery exercise instruction and education to address the impairments listed above. Condition: stable Level of complexity: low Patient consented to treatment and plan. Short Term Goals: Goal Description New Ongoing Partially Met Met Comments The patient will verbalize understanding of postsurgical care for skin, adherence to lifting precautions, and/or adjustments to functional mobility. X The patient will be able to verbalize an understanding of potential musculoskeletal complications following bariatric surgery. X The patient will verbalize an understanding of the importance and benefits of regular exercise withsuggested parameters and understand how to monitor vitals appropriately at home. X The patient will demonstrate and/or verbalize understanding of HEP established this date with minimal to no guidance. X Discharge Summary: Patient initiated physical therapy as part of Bariatric pre-surgical evaluation and treatment, intended for one time visit. Patient responds well to treatment of education and verbalizes understanding exercise prescription instructions. Verbalizes understanding that physical therapy is available for musculoskeletal pain complaints. Patient reported no further questions regarding exercise. Patientis discharged from physical therapy. Total Treatment Time: 48 minutes KAREL Oliver The note as documented above reflects my professional direction and approval, including the evaluation, treatment, assessment, and plan. I, the licensed physical therapist, was present for the entirevisit. Francis Ortega DPT Cosigned by Francis Ortega DPT at 05/29/2022 1:39 PM DIRECTOR OF TEENAGE ACTIVITIES CTOR OF TEENAGE ACTIVITIES documented in this encounter Plan of Treatment Not on file documented as of this encounter Visit Diagnoses Diagnosis BMI 37.0-37.9, adult- Primary Primary hypertension Unspecified essential hypertension Obstructive sleep apnea Obstructive sleep apnea (adult) (pediatric) Morbid obesity due to excess calories (HCC) Moderate episode of recurrent major depressive disorder (HCC) documented in this encounter Care Teams Av Specialist Relationship Specialty Start Date End Date Lona Randhawa MD [address] [place] [address] [place] [address] PCP - General Family Medicine 04/09/22 10/18/23 Glenn Lambert MD [address] [facility] [address] [place] [address] Referring Physician Obstetrics and Gynecology 11/18/21 documented as of this encounter
--- OUTSIDE RECORDS SUMMARY | 2024-07-08 03:47 | XMS_ITS | Encounter Summary ---
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 [facility], but they won't do surgery if she is not vaccinated. Dr Morfin has agreed to see pt. Advised pt she needs to get Dr Hickman's office to send over all her notes, etc and have her PCP send us a referral to Dr Morfin. Pt verbalized good understanding. SHOP SUPERVISOR documented in this encounter Plan of Treatment Not on file documented as of this encounter Visit Diagnoses Not on filedocumented in this encounter Care Teams Claims Assistant Relationship Specialty Start Date End Date Lona Randhawa MD [facility] [place] [address] PCP - General Family Medicine 04/09/22 10/18/23 Glenn Lambert MD [address] [facility] [address] [id number] Referring Physician Obstetrics and Gynecology 11/18/21 documented as of this encounter
--- OUTSIDE RECORDS SUMMARY | 2024-07-08 03:47 | XMS_ITS | Encounter Summary ---
Author Organization [facility] Address [address] [facility] [address] [place] [address] Phone Care Team Providers Care Program Advisor Name Role Phone Glenn Lambert MD Unavailable [phone] Lona Randhawa MD Primary Care Provider [phone] Encounter Details Date Type Department Care Team (Late st Contact Info) Description 07/01/2022 Orders Only [facility] Minimally Invasive Surgery [address] [place] [address] Medical Office Building [address] [place] [address] Vinicius Zheng, KOKO [address] [facility] [phone] [place] [address] Encounter for screening examination for infectious disease (Primary Dx); Screening examination for infectious disease Social History Tobacco Use Types Packs/Day Years [...] on file Legal Sex Female 2:08 PM MIXED ANIMAL VETERINARIAN Gender Identity Not on file Sexual Orientation Not on file documented as of this encounter Plan of Treatment Scheduled Orders Name Type Priority Associated Diagnoses Orde r Schedule SARS-COV-2 (COVID-19) nucleocapsid antibody IgG Lab Routine Screening examination for infectious disease Expected: 07/01/2022, Expires: 07/01/2023 documented as of this encounter Procedures Procedure Name Priority Date/Time Associated Diagnosis Comments SARS COV 2 AB (IGG) SPIKE, SEMI QN Routine 07/02/2022 8:38 AM MIXED ANIMAL VETERINARIAN COPY(IES) SENT TO: Routine 07/02/2022 8: 38 AM MIXED ANIMAL VETERINARIAN documented in this encounter Results * SARS COV 2 AB (IGG) SPIKE, SEMI QN (07/02/2022 8:38 AM MIXED ANIMAL VETERINARIAN) SARS COV 2 AB (IGG) SPIKE, SEMI QN <1.00 <1.00 index [facility] Comment: This test is intended to help identify individuals with antibodies to SARS-CoV-2 (COVID-19). The results of this semi-quantitative test should not be interpreted as an indication or degree of immunity or protection from reinfection. Please note: Tests performed after May 27, 2021 utilize an updated version of the SARS-COV-2 AB (IGG) Ifeanyi, SEMI QN assay (anti-S1 RBD IgG assay (sCOVG)). Test results generated before and after this date are not equivalent. The index value of the new assay's calibration to the WHO 20/136 Standard in binding antibody units (BAU/mL) may be found in this reference: Arsenio Rey and Tawnya, Journal of Virological Methods 300 (2014) 065709. https://www.sciencedirect.com/science/article/pii/N4743838676444070 A test result that is 1.00 or more (Positive) means antibodies to SARS-CoV-2 were detected in the blood sample by the test. This could mean that the individual may have an immune response to a recent or prior infection with SARS-CoV-2. Positive results may occur after COVID-19 vaccination, but the clinical significance of a positive antibody result for individuals that have received a COVID-19 vaccine is unknown, and the performance of the test has not been established in COVID-19 vaccinees. False positive results for the test may occur due to cross-reactivity from pre-existing antibodies or other possible causes. A test result that is less than 1.00 (Negative) means that antibodies were not detected in the blood sample by the test. This could mean that the individual has not been previously infected with SARS-CoV-2. The clinical significance of a negative antibody result for individuals that have received a COVID-19 vaccine is unknown. The performance of the test has not been established in COVID-19 vaccinees. False negative results for the test may occur if the individual's antibodies have not reached a sufficient level for the test to be able to detect them. Antibodies can take up to two to three weeks (sometimes longer) to develop after someone is infected. How long antibodies to SARS-CoV-2 last after infection is not known. This test should not be used to diagnose an active SARS-CoV-2 infection. If an active infection is suspected, direct molecular or antigen testing for SARS-CoV-2 is recommended. Please review the Fact Sheets available for healthcare providers and patients using the following websites: http://patient.SmartEquips.com/[facility]-HCP http://patient.SmartEquips.com/[facility]-Patients Healthcare Providers: ??For additional information please refer to: http://education.Insys Therapeutics.VCV/faq/CAL742 (This link is being provided for informational/educational purposes only.) This test has been authorized by the FDA under an Emergency Use Authorization (EUA) for use by authorized laboratories. The FDA authorized labeling is available on the FilmMe website: www.Edictive/Covid19. 07/02/2022 8:38 AM MIXED ANIMAL VETERINARIAN 07/02/2022 8:42 AM MIXED ANIMAL VETERINARIAN [facility] - 07/04/2022 7:49 AM MIXED ANIMAL VETERINARIAN FASTING:NO FASTING: NO us Vinicius Zheng NP LAB BLOOD ORDERABLES Final Result [facility] [address] [place] [address] * COPY(IES) SENT TO: (07/02/2022 8:38 AM MIXED ANIMAL VETERINARIAN) COPY(IES) SENT TO: [facility] Comment: ?[facility] ?COPY TO ACCOUNT ?[address] ?[place] [address] 07/02/2022 8:38 AM MIXED ANIMAL VETERINARIAN 07/02/2022 8:42 AM MIXED ANIMAL VETERINARIAN Narrative [facility] - 07/04/2022 7:49 AM MIXED ANIMAL VETERINARIAN FASTING:NO FASTING: NO us Vinicius Zheng STEEL LOADER LAB BLOOD ORDERABLES Final Result [facility] documented in this encounter Visit Diagnoses Diagnosis Encounter for screening examination for infectious disease- Primary Screening examination for infectious disease Screening examination for unspecified infectious disease documented in this encounter Care Teams Program Advisor Relationship Specialty Start Date End Date Lona Randhawa MD [facility] [place] [address] PCP - General Family Medicine 04/09/22 10/18/23 Glenn Lambert MD [address] [facility] [address] [facility] [address] [place] [address] Referring Physician Obstetrics and Gynecology 11/18/21 documented as of this encounter
--- OUTSIDE RECORDS SUMMARY | 2024-07-08 03:47 | XMS_ITS | Encounter Summary ---
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 Gender Identity Not on file Sexual Orientation Not on file documented as of this encounter Miscellaneous Notes * Telephone Encounter - Jenn Cody - 04/14/2022 11:28 AM CDT Bariatric Benefit and Communication Form Primary Insurance: [facility] - Medical Policy: [id number] - 01- Effective: 03.31.2022 S/W name and number: Shlomo Ashraf @ [phone] - Call ref: [phone] Bariatric Surgery Benefits: [x] Yes [] No - Insurance excludes bariatric surgery [x] Patient CAN have surgery at a [facility] [x] Patient CAN have surgery at a [facility] Blue Distinction/IOQ/ELYSSA non-[facility] facility required: NO [] Patient CANNOT have surgery at a [facility] facility. Employee: [facility] [] [facility] Bariatric Copay: [x] N/A or [] $ Deductible: [] N/A or [x] $ 750(zero met) Coinsurance: 20% Out of Pocket Maximum: [] N/A or [x] $ 2250(zero met) Bypass: [x] Yes or [] No Sleeve: [x] Yes or [] No Duodenal Switch: [x] Yes, (Scopinaro procedure) WITH duodenal switch (open or laparoscopic) may be considered medically necessary as a surgical treatment option for morbidly obese patients with BMI of 50 kg/m?? or greater who meet the other eligibility criteria for surgery. Lap Band: [x] Yes or [] No Band Fill Coverage: [x] Yes or [] No Lap Band Prior Auth [] Auth NOT required or [x] Prior Auth IS required Limit on # of fills: [x] None or ( ) Revision Benefits: [x] Yes or [] No Revision Requirements: Complications Reoperation related to previous bariatric surgery may be considered medically necessary for complications such as stricture, obstruction, or erosion except when the members benefit plan excludes coverage of such complications. Removal of an adjustable gastric band may be considered medically necessary for complications not resolved by band deflation, including but not limited to obstruction, erosion, aspiration pneumonia, GERD, night cough, Yarbrough's esophagus, persistent vomiting, or persistent pain except when the members benefit plan excludes coverage of such complications. Repeat/Revision of bariatric surgery: may be considered medically necessary only when specifically included as a benefit or covered service in the member's benefit plan, summary plan description or contract AND when ALL of the following criteria are met: o For the original bariatric procedure, the patient met all the screening criteria including BMI requirements; AND o The patient has been compliant with a prescribed nutrition and exercise program following the original surgery; AND o Technical surgical failure (e.g., dilatation of gastric pouch, gastrojejunal stoma, or gastrojejunostomy anastomosis; port leakage; or band slippage), has occurred that can only be addressed surgically; AND o The patient is requesting reinstitution of an acceptable bariatric surgical modality. Successful weight-loss is defined as weight loss equal to or greater than 50 percent of excess bodyweight. New bariatric surgery following a previous different bariatric procedure: A Vianca-en-Y procedure following a previously approved vertical banded gastroplasty or laparoscopic adjustable banded gastroplasty is not eligible for coverage for patients who have been substantially noncompliant with a prescribed nutrition and exercise program following the original procedure or when the member's benefit plan does not allow for coverage. When the initial bariatric surgical information is not available, medical information concerning the member's weight from other healthcare providers may be considered. Incidental procedures during a bariatric surgery: Coverage is allowed for gallbladder removal at the time of a covered gastric bypass surgical procedure, either for documented gallbladder disease or for prophylaxis. Repair of a hiatal hernia at the time of bariatric surgery may be considered medically necessary for patients who have a preoperatively-diagnosed symptomatic hiatal hernia. Repair of a hiatal hernia that is diagnosed at the time of bariatric surgery, or repair of a preoperatively diagnosed hiatal hernia in patients who do not have indications for surgical repair, is considered not medically necessary BMI: [x] 40 or greater, NO comorbid condition required BMI equal to or greater than 35 kg/meters?? with at least one (1) of the following clinically significant obesity-related diseases or complications that are not controlled by best practice medical management: Hypertension, OR Dyslipidemia, OR Diabetes mellitus, OR Coronary heart disease, OR Sleep apnea, OR Osteoarthritis in weight bearing joints Medically Supervised Weight Loss Required: [x] Not Required, [] Statement/Proof of previous failed attempts to achieve/maintain weight loss by medical management [] Proof of structured attempt at weight loss, at least 4 months in duration (PCP, PA, GLOVE BOARDER, RD) plans such as (Weight Watchers/Hali Saravanan, etc) are acceptable as long as your doctor documents your participations and progress in patients record [] 3 months/only 3 visits [] Aetna-3 month surgical prep [] 3 months 90 days 4 visits [] 6 months/only 6 visits [] 6 months 180 =7 visits [] Other Morbid Obesity weight and date requirement: [x] Not required [] 2YR [] 3YR [] 5YR Insurance Requires: Adult evaluation should document: 1. The absence of significant psychopathology that would hinder the ability of an individual to understand the procedure and comply with medical/surgical recommendations, AND 2. The absence of any psychological comorbidity that could contribute to weight mismanagement or a diagnosed eating disorder, AND 3. The patient's willingness to comply with preoperative and postoperative treatment plans. [] Alcohol free for ( ) [] Smoke free for ( ) [] Drug free for ( ) Other Instructions: Patient has completed an evaluation by a master's level or higher behavioral healthcare provider acting within the scope of their licensure under applicable state law, within the 12 months preceding the request for surgery. Shop Helper Obtaining Benefits: [facility].. 9. Secondary Insurance: Effective: S/W name and number: Bariatric Surgery Benefits: [] Yes [] No - Insurance excludes bariatric surgery [] Patient CAN have surgery at a [facility] [] Patient CAN have surgery at a [facility]/IOQ/[facility]SSA non[facility] facility required: [] Patient CANNOT have surgery at a [facility] facility. Employee: [facility] [] [facility] [] [facility][]Bariatric Copay: [] N/A or [] $ Deductible: [] N/A or [] $ Coinsurance: [] N/A or [] $ Out of Pocket Maximum: [] N/A or [] $ Bypass: [] Yes or [] No Sleeve: [] Yes or [] No Duodenal Switch: [] Yes [] No Lap Band: [] Yes or [] No Band Fill Coverage: [] Yes or [] No Lap Band Prior Auth [] Auth NOT required or [] Prior Auth IS required Limit on # of fills: [] None or ( ) Revision Benefits: [] Yes or [] No Revision Requirements: BMI: [] 40 or greater, NO comorbid condition required [] 40 or greater, WITH comorbid condition [] 35 - 39.9 in conjunction with at least one comorbidity [] 35 or greater WITH comorbid condition Medically Supervised Weight Loss Required: [] Not Required, [] Statement/Proof of previous failed attempts to achieve/maintain weight loss by medical management [] Proof of structured attempt at weight loss, at least 4 months in duration (PCP, PA, GLOVE BOARDER, RD) plans such as (Weight Watchers/Hali Coe, etc) are acceptable as long as your doctor documents your participations and progress in patients record [] 3 months/only 3 visits [] Aetna-3 month surgical prep [] 3 months 90 days 4 visits [] 6 months/only 6 visits [] 6 months 180 =7 visits [] Other Morbid Obesity weight and date requirement: [] Not required [] 2YR [] 3YR [] 5YR Insurance Requires: [] EGD/Upper Endoscopy [] Cardiac Clearance [] Pulmonary Function [] Alcohol free for ( ) [] Smoke free for ( ) [] Drug free for ( ) Other Instructions: Shop Helper Obtaining Benefits: ----- Message from Shayy Fuentes sent at 04/11/2022 10:21 AM CDT ----- Regarding: Bariatric Benefits bcbs [place] 04/11 Please verify benefits, Thank you! documented in this encounter Plan of Treatment Not on file documented as of this encounter Visit Diagnoses Not on filedocumented in this encounter Care Teams Psychiatry Adult Physician Relationship Specialty Start Date End Date Lona Randhawa MD [facility] [place] [address] PCP - General Family Medicine 04/09/22 10/18/23 Glenn Lambert MD [address] [address] Referring Physician Obstetrics and Gynecology 11/18/21 documented as of this encounter
--- OUTSIDE RECORDS SUMMARY | 2024-07-08 03:47 | XMS_ITS | Encounter Summary ---
Author Organization [facility] Address [address] [place] [address] Care Team Providers Care Labor Law Professor Name Role Phone Glenn Lambert MD Unavailable [phone] Tiffanie Randall NP Primary Care Provider [phone] Reason for Referral * Consultation (Routine) - Closed Specialty Diagnoses / Procedures Referred By Contac t Referred To Contact Gastroenterology Diagnoses Encounter for screening colonoscopy Tiffanie Randall NP Phone: tel: fax: Osvaldo Woodward MD [address] [place] [address] Phone: tel: fax: Referral ID Status Reason Start Date Expiration Date V isits Requested Visits Authorized [id number] Closed Specialty Services Required 10/19/2023 11/17/2024 1 1 Question Answer Please select the performing region: External Order [171] To provider: OSVALDO WOODWARD [[id number]] # of visits: 1 Reason for Visit * Reason Comments Establish Care Pt is here to est ca re Encounter Details Date Type Department Care Team (Late st Contact Info) Description 10/19/2023 4:00 PM CDT Office Visit [facility] Primary Care at [address] [address] Tiffanie Randall NP [address] [place] [address] [address] [place] [address] Moderate episode of recurrent major depressive disorder (HCC) (Primary Dx); Morbid obesity due to excess calories (HCC); Primary hypertension; Mixed hyperlipidemia; Encounter for hepatitis C screening test for low risk patient; Encounter for screening colonoscopy Social History Tobacco Use Types Packs/Day Years [...] on file 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 Gender Identity Not on file Sexual Orientation Not on file documented as of this encounter Last Filed Vital Signs Vital Sign Reading Time Taken Comments Blood Pressure 122/76 10/19/2023 4:00 PM CDT Pulse 99 10/19/2023 4:00 PM CDT Temperature 36.8 ??C (98.2 ??F) 10/19/2023 4:00 PM CD T Respiratory Rate - - Oxygen Saturation 98% 10/19/2023 4:00 PM CDT Inhaled Oxygen Concentration - - Weight 98.8 kg (217 lb 12.8 oz) 10/19/2023 4:00 PM CDT Height 167.6 cm (5' 6 ) 10/19/2023 4:00 PM CDT Body Mass Index 35.15 10/19/2023 4:00 PM CDT documented in this encounter Patient Instructions * Patient Instructions* Tiffanie Randall NP - 10/19/2023 4:00 PM CDT My medical record retrieval specialist and I are thankful you have trusted us with your care, and hope that you received EXCELLENT care ! Please do not hesitate to call if you have any questions or concerns at documented in this encounter Ordered Prescriptions Prescription Sig Dispense Quantity Refills Last Filled Start Date End Date amLODIPine (NORVASC) 5 mg tabletIndications: Primary hypertension Take 1 tablet (5 mg total) by mouth nightly 90 tablet 1 10/19/2023 4 documented in this encounter Progress Notes * Tiffanie Randall NP - 10/19/2023 4:00 PM CDT Images from the original note were not included. Chief Complaint Patient presents with Establish Care Pt is here to est care Assessment/Plan Diagnoses and all orders for this visit: Moderate episode of recurrent major depressive disorder (HCC) (Primary) Assessment & Plan: Stable. Managed by psychiatry. Morbid obesity due to excess calories (HCC) Assessment & Plan: BMI Follow-up includes: nutrition counseling and exercise counseling. Primary hypertension Assessment & Plan: Stable/ Improved. Blood pressure is adequately controlled on current medication. We will not make any medication changes today. Will have her follow-up in 6 months for continued monitoring and management Orders: - CBC with auto differential; Future - Thyroid Function Grundy; Future - amLODIPine (NORVASC) 5 mg tablet; Take 1 tablet (5 mg total) by mouth nightly Mixed hyperlipidemia Assessment & Plan: Not currently on medication. Orders for labs today. Will continue to monitor Orders: - Comprehensive metabolic panel; Future - Lipid panel; Future Encounter for hepatitis C screening test for low risk patient - Hepatitis C antibody Blood; Future Encounter for screening colonoscopy - Ambulatory referral to Gastroenterology; Future Return in about 6 months (around 04/19/2024) for Annual physical. History of Presenting Illness HPI Subjective: Laurie Jacobsen is a 48 y.o. female. Patient is being seen today for Establish Care (Pt is here to est care) . She needs a referral to cardiology - states she has been on blood pressure medication . Saw cardiology while : [facility] cardiology - alanis martinez [phone] GI: needs colonoscopy Hypertension: - diagnosed 6 years ago. Amlodpine 5mg [facility]: - seeing them for vyvanse and fluoxetine. Primary was giving xanax. Gynecology - [place] - Review of Systems Constitutional: Negative for activity change, fatigue and fever. HENT: Negative for congestion, ear pain, postnasal drip, sinus pressure, sore throat and trouble swallowing. Eyes: Negative for redness and visual disturbance. Respiratory: Negative for cough, chest tightness, shortness of breath and wheezing. Cardiovascular: Negative for chest pain, palpitations and leg swelling. Gastrointestinal: Negative for abdominal pain, constipation, diarrhea, nausea and vomiting. Genitourinary: Negative. Musculoskeletal: Negative for back pain and myalgias. Skin: Negative for rash and wound. Neurological: Negative for syncope and headaches. Psychiatric/Behavioral: Negative. Physical Exam Constitutional: General: She is not in acute distress. Appearance: She is well-developed. HENT: Head: Normocephalic. Right Ear: Tympanic membrane, ear canal and external ear normal. Left Ear: Tympanic membrane, ear canal and external ear normal. Mouth/Throat: Pharynx: No oropharyngeal exudate or posterior oropharyngeal erythema. Eyes: Conjunctiva/sclera: Conjunctivae normal. Neck: Thyroid: No thyromegaly. Trachea: No tracheal deviation. Cardiovascular: Rate and Rhythm: Normal rate and regular rhythm. Heart sounds: Normal heart sounds. No murmur heard. No friction rub. Pulmonary: Effort: Pulmonary effort is normal. No respiratory distress. Breath sounds: Normal breath sounds. No wheezing or rales. Abdominal: General: Bowel sounds are normal. There is no distension. Palpations: Abdomen is soft. There is no mass. Tenderness: There is no abdominal tenderness. There is no rebound. Hernia: No hernia is present. Musculoskeletal: Cervical back: Neck supple. Right lower leg: No edema. Left lower leg: No edema. Lymphadenopathy: Cervical: No cervical adenopathy. Skin: General: Skin is warm and dry. Neurological: Mental Status: She is alert and oriented to person, place, and time. Psychiatric: Mood and Affect: Mood normal. Behavior: Behavior normal. Thought Content: Thought content normal. Judgment: Judgment normal. Current Outpatient Medications: ALPRAZolam (XANAX) 0.25 mg tablet, , Disp: , Rfl: FLUoxetine (PROzac) 60 mg tablet, , Disp: , Rfl: Slynd tablet tablet, , Disp: , Rfl: Vyvanse 60 mg capsule, , Disp: , Rfl: amLODIPine (NORVASC) 5 mg tablet, Take 1 tablet (5 mg total) by mouth nightly, Disp: 90 tablet, Rfl: 1 BP 122/76 (BP Location: Left arm, Patient Position: Sitting) Pulse 99 Temp 36.8 ??C (98.2 ??F) (Oral) Ht 167.6 cm (5' 6 ) Wt 98.8 kg (217 lb 12.8 oz) SpO2 98% BMI 35.15 kg/m?? Tiffanie Randall NP documented in this encounter Miscellaneous Notes * Assessment & Plan Note - Tiffanie Randall NP - 10/19/2023 7:51 PM CDT Associated Problem(s): Mixed hyperlipidemia Not currently on medication. Orders for labs today. Will continue to monitor * Assessment & Plan Note - Tiffanie Randall NP - 10/19/2023 7:50 PM CDT Associated Problem(s): Morbid obesity due to excess calories (HCC) BMI Follow-up includes: nutrition counseling and exercise counseling. * Assessment & Plan Note - Tiffanie Randall NP - 10/19/2023 7:50 PM CDT Associated Problem(s): Primary hypertension Stable/ Improved. Blood pressure is adequately controlled on current medication. We will not make any medication changes today. Will have her follow-up in 6 months for continued monitoring and management * Assessment & Plan Note - Tfifanie Randall NP - 10/19/2023 7:49 PM CDT Associated Problem(s): Moderate episode of recurrent major depressive disorder (HCC) Stable. Managed by psychiatry. * Addendum Note - Stella Dover - 10/19/2023 4:00 PM CDTAddended by: STELLA DOVER on: 11/18/2023 08:11 AM Modules accepted: Orders documented in this encounter Plan of Treatment Scheduled Referrals Name Type Priority Associated Diagnoses Order Schedule Ambulatory referral to Gastroenterology Outpatient Referral Routine Encounter for screening colonoscopy Expected: 11/02/2023 (Approximate), Expires: 10/18/2024 documented as of this encounter Results * (ABNORMAL) CBC with auto differential (11/18/2023 8:11 AM CDT) [facility] WBC 7.9 3.8 - 9.9 K/cumm Hgb 13.2 11.9 - 15.5 g/dL [facility] Hct 41.1 35.6 - 45.5 % [facility] Plt 416(H) 150 - 400 K/cumm [facility] MPV 9.0(L) 9.1 - 12.3 fL [facility] RBC 4.59 3.90 - 5.20 M/cumm [facility] MCV 89.5 81.3 - 96.4 fL [facility] MCH 28.8 27.1 - 33.3 pg [facility] MCHC 32.1(L) 32.3 - 35.7 g/dL [facility] RDW CV 12.9 11.1 - 14.9 % [facility] RDW SD 42.3 35.7 - 48.1 fL [facility] NRBC abs 0.00 0.00 - 0.01 K/cumm [facility] Blood 11/18/2023 8:11 AM CDT 11/18/2023 1:54 PM CDT Tiffanie Randall NP LAB BLOOD ORDERABLES Final Resul t [facility] [address] Department [place] [address] * Comprehensive metabolic panel (11/18/2023 8:11 AM CDT) Sodium 139 135 - 145 mmol/L Potassium, pl 4.3 3.3 - 4.9 mmol/L [facility] Chloride 103 97 - 110 mmol/L [facility] CO2 24 22 - 32 mmol/L [facility] Anion gap 12 2 - 15 mmol/L [facility] BUN 16 6 - 25 mg/dL [facility] Creatinine 1.05 0.60 - 1.10 mg/dL [facility] Glucose 88 70 - 199 mg/dL [facility] Comment: Interpretive Data Fasting glucose >/= 126 [...] 8:11 AM CDT 11/18/2023 1:54 PM CDT Tiffanei Randall NP LAB BLOOD ORDERABLES Final Resul t [facility] [address] [address] Department [place] [address] * (ABNORMAL) Lipid panel (11/18/2023 8:11 AM [...] on 2018. LDL, calculated 103 <=129 mg/dL [facility] Comment: Interpretive Data Ages [...] revised on 2018. Non-HDL Cholesterol 146 mg/dL [facility] Comment: Interpretive Data Ages < or = [...] ORDERABLES Final Resul t Performing Organization Address [facility] de Phone Number [facility] [address] [address] [place], [place] [id number] * Thyroid Function Grundy (11/18/2023 8:11 AM CDT) TSH 0.95 0.30 - 4.20 mcIUnit/mL Blood 11/18/2023 8:11 AM CDT 11/18/2023 1:54 PM CDT Tiffanie Randall NP LAB BLOOD ORDERABLES Final Resul t Performing Organization Address [facility] Phone Number [facility] [address] [address] [employer] [place], [place] [id number] * Hepatitis C antibody Blood (11/18/2023 8:11 [...] ORDER IVANNA Final Result Performing Organization Address [facility] de Phone Number [facility] [address] [address] [facility] [place] [address] documented in this encounter Visit Diagnoses Diagnosis Moderate episode of recurrent major depressive disorder (HCC)- Primary Morbid obesity due to excess calories (HCC) Primary hypertension Unspecified essential hypertension Mixed hyperlipidemia Encounter for hepatitis C screening test for low risk patient Encounter for screening colonoscopy documented in this encounter Discontinued Medications Medication Sig Discontinue Reason Start Date End Da te glycopyrrolate (ROBINUL) 1 mg tablet Therapy completed 03/11/2022 10/19/2023 buPROPion XL (WELLBUTRIN XL) 150 mg 24 hr tabletIndications:Moderat e episode of recurrent major depressive disorder (HCC) Take 1 tablet (150 mg total) by mouth every morning Therapy completed 11/18/2021 10/19/2023 chlorthalidone 25 mg tabletIndications:Primary hypertension Take 1 tablet (25 mg total) by mouth daily 11/18/2021 10/19/2023 amLODIPine (NORVASC) 5 mg tabletIndications:Primary hypertension Take 1 tablet (5 mg total) by mouth nightly Reorder 11/18/2021 10/19/2023 documented as of this encounter Historical Medications * This list may reflect changes made after this encounter. Medication Sig Dispense Quantity Refills Last Filled Start D ate End Date Vyvanse 60 mg capsule added in this encounter Care Teams Labor Law Professor Relationship Specialty Start Date End Date iTffanie Randall NP [address] [address] PCP - General Family Medicine 10/19/23 Glenn Lambert MD [address] [facility] [address] [place] [address] Referring Physician Obstetrics and Gynecology 11/18/21 documented as of this encounter
== END 2024-07-03 12:40 | disposition home or self-care (01) ==
PROVIDERS: Emergency Provider Nurse Practitioner Family; PCP Nurse Practitioner Family
DX: J06.9 Acute upper respiratory infection, unspecified (principal); I10 Essential (primary) hypertension
CPT/HCPCS: 99211; G0463